=== PATIENT | female | born 1965 | race Caucasian/White ===

== ENCOUNTER 2022-07-16 21:11 | Emergency (ER) | payer BC, SELFPAY ==
[2022-07-16 21:24] VITALS: BP 176/117; PULSE 76; RESP 16; TEMP 36; O2SAT 98; BMI 41.6
--- NOTE | 2022-07-16 21:38 | CRLHL7_ITS ---
For Patients: As a result of the Century Cures Act, medical imaging exams and procedure reports are released immediately into your electronic medical record. You may view this report before your referring provider. If you have questions, please contact your health care provider. HISTORY: Fall. Right ankle injury. COMPARISON: None. FINDINGS: Three views of the right ankle. Acute nondisplaced fracture of the distal fibula diaphysis. The ankle mortise appears intact. Soft tissue swelling about the lateral lower leg. Dictated by Kristen Solano MD @ 07/16/2022 10:16:34 PM (Electronically Signed)
--- NOTE | 2022-07-16 21:41 | ED_ITS ---
HPI - Extremity Injury (Lower) General Chief Complaint: Fall/Minor Trauma Stated Complaint: Possibly broken ankle, fell down Time Seen by Provider: 07/16/22 21:31 History of Present Illness HPI Narrative: This patient comes in with an injury to her right ankle. She was riding a horse when another horse came up along side and caused injury to her right ankle. She does have a skin injury on the lateral aspect of the right leg just above the ankle. She has some generalized swelling and a bit of ecchymosis. She has been ambulating some on this but comes in with the assistance of crutches. She states that this injury happened about 4 hours prior to arrival. She does report some mild right-sided symptoms along her hip and right ribs. She does not have any shortness of breath. She did not hit her head. She states that she really did not fall. Her primary injury is involving the right ankle region. Related Data Home Medications Medication Instructions Recorded Confirmed anastrozole 1 mg tablet (Arimidex) 1 mg PO QDAY 06/30/22 06/30/22 Previous Rx's Medication Instructions Recorded lisinopril 10 1 tab PO QDAY #90 tabs 06/03/22 mg-hydrochlorothiazide 12.5 mg tablet rosuvastatin 10 mg tablet 10 mg PO QDAY #30 tabs 07/08/22 Allergies Allergy/AdvReac Type Severity Reaction Status Date / Time amoxicillin Allergy Intermediate swelling/hi Verified 06/30/22 15:07 ves codeine Allergy Intermediate Verified 06/30/22 15:07 ibuprofen Allergy Intermediate Verified 06/30/22 15:07 Review of Systems Status of ROS: Reports: 10 or more systems reviewed and unremarkable except as noted in History and below Narrative: Constitutional: No fevers, no weight gain or loss. Eyes: No discharge. No vision changes. HENT: No congestion, no sore throat, no ear pain. Cardiovascular: No chest pain, no palpitations. Respiratory: No shortness of breath, no wheezes, no cough. Gastrointestinal: No abdominal pain, no vomiting, no diarrhea. Genitourinary: No dysuria, no hematuria. Musculoskeletal: Right ankle injury as described above. Skin: No rashes, no pruritis. Neurological: No dizziness, weakness, sensory change, speech change. Endo/Heme/Allergies: No bruising or bleeding. No polydipsia. Pysch: no suicidality, no anxiety, no insomnia. All other systems reviewed and are negative. PFSH PFSH Social History Smoking Status: Former smoker What tobacco products do you use: cigarettes Smoking quit date/years: >15 years ago How often do you have a drink containing alcohol: 2-4 times a month AUDIT-C Alcohol total score: 2 Non-prescribed substance use: denies use service: No Exam Narrative: Exam Narrative: Constitutional: Well-developed, well-nourished, no acute distress. HEENT: Normocephalic, atraumatic. Neck: Normal range of motion. Nontender. Supple. Heart: Regular. No murmurs. Normal rate. Intact distal pulses. Lungs: Clear to auscultation. No chest discomfort. No wheezes, rhonchi, or rales. Abdomen: Normal bowel sounds. Nontender. No rebound tenderness. Genitalia: Deferred. Back: No midline tenderness. Normal range of motion. Extremities: Right ankle has diffuse swelling with mild ecchymosis. There is a skin avulsion in the area involving the lateral part of the right lower leg just above the ankle. Skin: Intact. No rash. Warm. No erythema or pallor. Neurologic: No altered sensation. No weakness. Alert and oriented. Psychiatric: No suicidality. No anxiety or depression. No insomnia. Nursing notes and vitals signs are reviewed. Const: Vital Signs, click to edit/add: Vital Signs - 24 hr 07/16/22 21:24 Temperature 96.8 F L Pulse Rate [Left P ulse Oximeter] 76 Respiratory Rate 16 Blood Pressure [Le ft Upper Arm] 176/117 H Pulse Oximetry 98 Oxygen Delivery Me thod Room Air Course Vital Signs Vital signs: Initial Vital Signs Temperature 96.8 F L 07/16/22 21:24 Temperature Source Temporal Artery Scan 07/16/22 21:24 Pulse Rate 76 07/16/22 21:24 Pulse Rhythm 07/16/22 21:24 Pulse Strength 3+ Normal 07/16/22 21:24 Respiratory Rate 16 07/16/22 21:24 Blood Pressure 176/117 H 07/16/22 21:24 Blood Pressure Mean 136 07/16/22 21:24 Blood Pressure Position Sitting 07/16/22 21:24 Pulse Oximetry 98 07/16/22 21:24 Oxygen Delivery Method 07/16/22 21:24 Vital Signs Temperature 96.8 F L 07/16/22 21:24 Pulse Rate 76 07/16/22 21:24 Respiratory Rate 16 07/16/22 21:24 Blood Pressure 176/117 H 07/16/22 21:24 Pulse Oximetry 98 07/16/22 21:24 Oxygen Delivery Method 07/16/22 21:24 Temperature 96.8 F L 07/16/22 21:24 Pulse Rate 76 07/16/22 21:24 Respiratory Rate 16 07/16/22 21:24 Blood Pressure 176/117 H 07/16/22 21:24 Pulse Oximetry 98 07/16/22 21:24 Oxygen Delivery Method 07/16/22 21:24 MDM - Extremity Injury (Lower) MDM Narrative Medical decision making narrative: This patient comes in with an injury to her right ankle. X-ray images by my review with radiology report pending shows evidence of a oblique minimally displaced fracture of the distal fibula. The tibia is intact and the ankle mortise appears normal. This patient came in with crutches and can continue to use those. She does also have a walking boot and attempted to put this on at home but it was too painful with swelling at the time. She received a posterior splint that I applied with Ortho Glass material. She does have a skin injury that is not actively bleeding but near the site of the fracture. She did receive a prescription for Keflex. I advised her to follow-up with orthopedic clinic this week. Imaging Data XR R Ankle: My impression: Oblique minimally displaced fracture of the distal fibula. Ankle mortise is intact. Discharge Plan Discharge Clinical Impression: Fibula fracture Patient Disposition: Home, Self-Care Condition: Stable Additional Instructions: Take medication as prescribed. Wear splint or walking boot to immobilize the right ankle. Use crutches as needed. Follow-up with orthopedic clinic for ongoing management. Prescriptions: No Action anastrozole [Arimidex] 1 mg tablet 1 mg PO QDAY lisinopril-hydrochlorothiazide 10-12.5 mg tablet 1 tab PO QDAY Qty: 90 1RF rosuvastatin 10 mg tablet 10 mg PO QDAY Qty: 30 0RF Follow Up/Referrals: Charlotte Salcido MD [Primary Care Provider] - Stand Alone Forms: [facility] Info Instructions
--- OUTSIDE RECORDS SUMMARY | 2022-07-16 22:02 | XMS_ITS | Encounter Summary ---
:1965 Author Organization [facility] Address [address] [place] [address] Care Team Providers Name Role Phone Unavailable Primary Care Provider Unavailable Reason for Visit Radiation Therapy (Routine) - Closed Specialty Diagnoses / Procedures Referred By Contact Refer red To Contact Diagnoses Malignant Neoplasm Of Breast Lower Inner Quadrant Female Right (HCC) Bryant Waddell M.D. [facility] Procedures Prior Auth Rad Tx [place] IMRT SIMPLE [address] [place] [address] Referral ID Status Reason Start Date Expiration Date Visits Requ ested Visits Authorized [id number] Closed 05/25/2021 05/25/2022 30 30 Encounter Details Date Type Department Care Team Description 08/03/2021 Hospital Encounter Department of Radiation Neal Waddell, Oncology in [place] [address] [facility] [address] [place] [id number] [phone] Social History Tobacco Use Types Packs/Day Years Used Date Smoking Tobacco: Never Assessed Alcohol Habits Answer Date Recorded How often do you have a drink containing alcohol? Monthly or less 05/24/2021 How many drinks containing alcohol do you have on a 1 or 2 05/24/2021 typical day when you are drinking? How often do you have six or more drinks on one Never 05/24/2021 occasion? Comment: Not asked Social Isolation Answer Date Recorded In a typical week, how many times do you More than three brian es a week 05/24/2021 talk on the phone with family, friends, or neighbors? How often do you get together with friends Once a week 05/24/2021 or relatives? How often do you attend pentecostalism or Patient refused 2020 confucianism services? Do you belong to any clubs or No 05/24/2021 organizations such as pentecostalism groups, unions, fraternal or athletic groups, or school groups? How often do you attend meetings of the Never 05/24/2021 clubs or organizations you belong to? Are you now , , , 05/24/2021 , never or living with a partner? Physical Activity Answer Date Recorded On average, how many days per week do you engage in moderate 0 days 05/24/2021 to strenuous exercise (like walking fast, running, jogging, dancing, swimming, biking, or other activities that cause a light or heavy sweat)? On average, how many minutes do you engage in exercise at No t asked this level? Stress Answer Date Recorded Do you feel stress - tense, restless, nervous, or Only a lit tle 05/24/2021 anxious, or unable to sleep at night because your mind is troubled all the time - these days? Food Insecurity Answer Date Recorded Within the past 12 months, you worried that your food would Never true 05/24/2021 run out before you got money to buy more. Within the past 12 months, the food you bought just didn't N ever true 05/24/2021 last and you didn't have money to get more. Transportation Needs Answer Date Recorded In the past 12 months, has lack of transportation kept you f rom No 05/24/2021 medical appointments or from getting medications? In the past 12 months, has lack of transportation kept you f rom No 05/24/2021 meetings, work, or getting things needed for daily living? Housing Stability Answer Date Recorded In the last 12 months, was there a time when you were not ab le No 05/24/2021 to pay the mortgage or rent on time? In the last 12 months, how many places have you lived? 1 05/24/2021 In the last 12 months, was there a time when you did not hav e a No 05/24/[address] or slept in a alf (including now)? Education Answer Date Recorded What is the highest level of school you have completed or 12 th grade 05/24/2021 the highest degree you have received? Sex Assigned at Date Recorded Female 07/26/2021 6:15 AM CDT documented as of this encounter Medications at Time of Discharge Medication Sig Dispensed Refills Start Date End Date ascorbic acid, vitamin C, Take 500 mg by mouth 0 (ascorbic acid with maria ines daily. hips) 500 mg tablet biotin 1 mg tablet Take by mouth daily. 0 calcium carbonate-vitamin Take 1 tablet by mouth 0 D3 (Calcium 500 + D) daily with breakfast. 1,250 mg (500 mg calcium)-5 mcg (200 Unit) per tablet gabapentin (NEURONTIN) Take 100 mg by mouth 0 02/2021 100 mg capsule daily. lisinopril-hydroCHLOROthi Take 1 tablet by mouth 0 04/03/2021 azide daily. (PRINZIDE,ZESTORETIC) 10-12.5 mg per tablet multivitamin tablet Take 1 tablet by mouth 0 10/16 daily. omega 8-mnm-qnc-fish oil Take by mouth. 0 1,000 mg (120 mg-180 mg) capsule UNABLE TO FIND Evening primrose 650 0 mg UNABLE TO FIND Flaxseed oil 1400 mg 0 UNABLE TO FIND Echinacea 800 mg 0 anastrozole (ARIMIDEX) 1 Take 1 mg by mouth 0 mg tablet daily. documented as of this encounter Plan of Treatment Not on filedocumented as of this encounter Visit Diagnoses Not on filedocumented in this encounter
--- OUTSIDE RECORDS SUMMARY | 2022-07-16 22:02 | XMS_ITS | Encounter Summary ---
:1965 Author Organization [facility] Address [address] [place] [address] Care Team Providers Name Role Phone Unavailable Primary Care Provider Unavailable Encounter Details Date Type Department Care Team Description 08/11/2021 Documentation Department of Radiation Bryant Waddell, Oncology in [place] [address] [facility] [address] [place] [phone] (Wo rk) Social History Tobacco Use Types Packs/Day Years [...] or relatives? How often do you attend restorationism or Patient refused 2020 evangelical services? Do you belong to any clubs or No 05/24/2021 organizations such as restorationism groups, unions, fraternal or athletic groups, or [...] place to sleep or slept in a long term (including now)? Education Answer Date Recorded What is the highest level of school you have completed or 12 th grade 05/24/2021 the highest degree you have received? Sex Assigned at Date Recorded Female 07/26/2021 6:15 AM CDT documented as of this encounter Miscellaneous Notes Radiation Completion Notes - Viviana Baldwin R.N. - 08/11/2021 11:59 PM CDT DIAGNOSIS: 1. 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 She is currently undergoing adjuvant whole breast and lymph node radiotherapy followed by boost to lumpectomy cavity. Attending Physician: Bryant Waddell M.D. ([id number]) Treatment Intent: Curative Concomitant Therapy: None Single Plan Treatment Course: 1x R BREAST_LN Plan ID Fractions Dose / Fraction (cGy) Dose Treated (cGy) Dose Planned (cGy) First Treatment Last Treatment Elapsed Days [id number] 200 5000 5000 07/01/2021 08/04/2021 34 [id number] 200 1000 1000 08/05/2021 08/11/2021 6 Treatment Site Summary 6000 6000 07/01/2021 08/11/2021 41 Course Summary 07/01/2021 08/11/2021 41 Radiation Modality: Photons CLINICAL SUMMARY Mrs. Shahrzad Solitario completed radiation treatment as planned without interruptions. The course of treatment was tolerated well. The patient experienced toxicities of grade 2 dermatitis and hyperpigmentation during radiation treatment. TREATMENT RESPONSE: Response to treatment will be determined by post-treatment imaging and/or laboratory work. RECOMMENDED FOLLOW UP: She has a follow-up visit with Vee Nguyen CNP on September 23, 2021. No further follow-up in Radiation Oncology Clinic. Signed by: Viviana Baldwin R.N., 08/16/2021 2:55 PM CDT [facility] [address] [place] [address] documented in this encounter Plan of Treatment Not on filedocumented as of this encounter Visit Diagnoses Not on filedocumented in this encounter
--- OUTSIDE RECORDS SUMMARY | 2022-07-16 22:02 | XMS_ITS | Encounter Summary ---
:1965 Author Organization [facility] Address [address] [place] [address] Care Team Providers Name Role Phone Unavailable Primary Care Provider Unavailable Reason for Visit Radiation Therapy (Routine) - Closed Specialty Diagnoses / Procedures Referred By Contact Refer red To Contact Diagnoses Malignant Neoplasm Of Breast Lower Inner Quadrant Female Right (HCC) Bryant Waddell M.D. [facility] Procedures Prior Auth Rad Tx [place] IMRT SIMPLE [address] [place] [address] Referral ID Status Reason Start Date Expiration Date Visits Requ ested Visits Authorized [id number] Closed 05/25/2021 05/25/2022 30 30 Encounter Details Date Type Department Care Team Description 07/30/2021 Hospital Encounter Department of Radiation Neal Waddell, Oncology in [place] [address] [facility] [address] [place] [id number] [phone] Social History Tobacco Use Types Packs/Day Years [...] or relatives? How often do you attend sikh or Patient refused 2020 quaker services? Do you belong to any clubs or No 05/24/2021 organizations such as sikh groups, unions, fraternal or athletic groups, or [...] place to sleep or slept in a skilled nursing (including now)? Education Answer Date Recorded What [...] tablet by mouth 0 10/16 daily. omega 1-zef-pyl-fish oil Take by mouth. 0 1,000 mg [...]
--- OUTSIDE RECORDS SUMMARY | 2022-07-16 22:02 | XMS_ITS | Encounter Summary ---
:1965 Author Organization [facility] Address [address] [place] [address] Care Team Providers Name Role Phone Unavailable Primary Care Provider Unavailable Reason for Referral Radiation Therapy (Routine) - Closed Specialty Diagnoses / Procedures Referred By Contact Refer red To Contact Diagnoses Malignant Neoplasm Of Breast Lower Inner Quadrant Female Right (HCC) Bryant Waddell M.D. [facility] Procedures Management Visit [address] [place] [address] Referral ID Status Reason Start Date Expiration Date Visits Requ ested Visits Authorized [id number] Closed 05/25/2021 05/25/2022 10 10 Reason for Visit Radiation Therapy (Routine) - Closed Specialty Diagnoses / Procedures Referred By Contact Refer red To Contact Diagnoses Malignant Neoplasm Of Breast Lower Inner Quadrant Female Right (HCC) Bryant Waddell M.D. [facility] Procedures Management Visit [address] [place] [address] Referral ID Status Reason Start Date Expiration Date Visits Requ ested Visits Authorized [id number] Closed 05/25/2021 05/25/2022 10 10 Encounter Details Date Type Department Care Team Description 08/10/2021 - Hospital Encounter Department of Lisbeth Waddell t Neoplasm 08/17/2021 Radiation Oncology Bryant Kemp M.D. Of Breast Lower in [place], [address] [place], [place] Female Right (HCC) [address] [facility] [address] [place], [place] [phone] (Work) [phone] Social History Tobacco Use Types Packs/Day Years [...] or relatives? How often do you attend taoist or Patient refused 2020 anabaptism services? Do you belong to any clubs or No 05/24/2021 organizations such as taoist groups, unions, fraternal or athletic groups, or [...] AM CDT documented as of this encounter Last Filed Vital Signs Vital Sign Reading Time Taken Comments Blood Pressure - - Pulse - - Temperature 36.7 ??C (98 ??F) 08/10/2021 3:56 PM CDT Respiratory Rate - - Oxygen Saturation - - Inhaled Oxygen Concentration - - Weight 113 kg (249 lb 5.4 oz) 08/10/2021 3:56 PM CDT Height - - Body Mass Index 41.54 05/26/2021 2:25 PM CDT documented in this encounter Medications at Time of Discharge [...] tablet by mouth 0 10/16 daily. omega 8-yzs-ssy-fish oil Take by mouth. 0 1,000 mg (120 mg-180 mg) capsule UNABLE TO FIND Evening primrose 650 0 mg UNABLE TO FIND Flaxseed oil 1400 mg 0 UNABLE TO FIND Echinacea 800 mg 0 anastrozole (ARIMIDEX) 1 Take 1 mg by mouth 0 mg tablet daily. documented as of this encounter Progress Notes Bryant Waddell M.D. - 08/10/2021 4:15 PM CDT SUBJECTIVE SUPERVISED BY: Dr. Waddell REASON FOR VISIT Evaluation for side effects while receiving radiation treatment for 1. Malignant Neoplasm Of Breast Lower Inner Quadrant Female Right (HCC) HISTORY OF PRESENT ILLNESS Mrs. Shahrzad Solitario is a 55 y.o. female with stage IIB (cT2, cN1, cM0, G3, ER+, IL+, HER2-)invasive ductal carcinoma of the right breast. She is currently undergoing adjuvant whole breast andlymph node radiotherapy followed by boost to lumpectomy cavity. Treatment Course: 1x R BREAST_LN Plan ID Fractions Dose / Fraction (cGy) Dose Treated (cGy) Dose Planned (cGy) First Treatment Last Treatment Elapsed Days [id number] 200 5000 5000 07/01/2021 08/04/2021 34 [id number] 471 [id number] [id number] 08/05/2021 08/10/2021 5 Treatment Site Summary [id number] 6000 07/01/2021 08/10/2021 40 Course Summary 07/01/2021 08/10/2021 40 Her oncologic history is as follows: 1. September 2020: The patient noted a mass in her right breast. 2. October 19, 2020: Bilateral diagnostic mammogram demonstrated a mass within the lower inner quadrant of the right breast corresponding to the area of concern. Right axillary adenopathy was also present. Mildly prominent left axillary lymph node. Normal left breast parenchyma. Targeted right breast ul trasound and right axilla as well as targeted left axillary ultrasound was performed. In the area ofpalpable concern corresponding to the mammographic abnormality at the 5 o'clock position, 6 cm from the nipple, there was a spiculated hypoechoic mass measuring 1.9 x 1.6 x 2.2 cm with mild internal vas cularity. Mildly prominent right axillary lymph node was also present with slight cortical thickening measuring 1.5 cm. Probably normal left axillary lymph node was present. BI-RADS 5. 3. October 19, 2020: Ultrasound of the abdomen demonstrated diffuse hepatic steatosis. No intrahepatic mass by ultrasound. Gallbladder was normal. Common bile duct was somewhat prominent measuring 8 mm. 4. October 29, 2020: Ultrasound-guided core biopsy of the right breast at the 5 o'clock position, 6 cm from the nipple was performed. Pathology demonstrated invasive ductal carcinoma with associated necrosis, Rhinanon grade 3. Angiolymphatic invasion was not identified. Associated DCIS was absent. Estrogen receptor positive (90%). Progesterone receptor positive (45%). HER2 by IHC negative (0). Ultrasound-guided core biopsy of the enlarged right axillary lymph node was performed. Pathology demonstrated metastatic carcinoma to a lymph node measuring at least 0.7 cm, negative for extracapsular extension in this biopsy. 5. November 04, 2020: MRI of the bilateral breasts demonstrated in the slightly medial right breast, posterior depth, at approximately the 3 o'clock position, approximately 10 cm from the nipple there was an irregular mass with irregular margins and heterogeneous internal enhancement measuring 2.2 x 2.5 x 1.9 cm. This is consistent with the biopsy-proven malignancy. There were no suspicious areas of enhancement in the left breast. There was an enlarged low lying right axillary lymph node measuring 1.7 x 1.0 cm. This is consistent with the biopsy- proven masoud metastasis. No suspicious left axillary lymph nodes. BI-RADS 6. 6. November 09, 2020: Appointment with Dr. Adriana Anderson for physical examination demonstrated an approximately 3 cm mass which was somewhat fixed just superior to the inframammary fold in the right breast in the lower inner quadrant. No masses in the left breast. No nipple inversion in either breast. No axillary adenopathy. Dr. Anderson discussed options of down staging her axilla with neoadjuvant chemotherapy versus proceeding straight to surgery. Referral to Medical Oncology. 7. November 19, 2020: Appointment with Vee Nguyen CNP who discussed the recommendation to proceed with neoadjuvant chemotherapy with Adriamycin/Cytoxan for 4 cycles followed by weekly paclitaxel for 12 weeks. 8. November 26, 2020: Left IJ port placement was performed by Dr. Adriana Anderson. 9. November 26, 2020 through January 07, 2021: The patient received 4 cycles of cyclophosphamide and doxorubicin chemotherapy. 10. January 20, 2021: Ultrasound of the right breast demonstrated that the breast cancer currently measured 1.3 x 1 x 1.2 cm, decreased in size. Additionally, the previously enlarged right axillary lymph node currently measured 1 x 0.7 x 1.5 cm. The cortex remained thickened; however, the size of the lymph node was decreased. 11. January 22, 2021 through April 08, 2021: The patient received 12 cycles of weekly Taxol chemotherapy. 12. April 13, 2021: MRI of the bilateral breasts demonstrated in the slightly medial right breast at approximately the 3 o'clock position, 10 cm posterior to the nipple, there was a 0.7 x 2 x 0.8 cm irregular mass. This was decreased in size compared to the previous MRI. No suspicious mass or enhancement within the left breast. The previously biopsied malignant low right axillary lymph node was now normal in size and morphology. No abnormal morphology left axillary lymph nodes. 13. April 29, 2021: Right breast lumpectomy, right axillary sentinel lymph node biopsy, right axillary dissection, and left IJ port removal was performed by Dr. Duval. Pathology of the right breast demonstrated residual invasive ductal carcinoma, Rhiannon grade 2, measuring 13 x 12 mm. There were tumor bed changes present measuring approximately 18 x 18 x 13 mm. Residual ductal carcinoma in situ, nuclear grade 3, cribriform and flat/clinging types. Invasive carcinoma and DCIS were both located 5 mmfrom the anterior margin. One of three right sentinel lymph nodes demonstrated micro metastatic carcinoma measuring 2 mm, no extranodal extension identified (1/3). Right axillary lymph node dissection was performed and was negative for metastatic malignancy in nine lymph nodes (0/9). Estrogen receptorpositive (90%). Progesterone receptor positive (45%). HER2 by IHC negative (0). ypT1c pN1mi 14. May 20, 2021: Appointment with Vee Dodd???CAROLYN Parson who discussed endocrine therapy in the adjuvant setting using an aromatase inhibitor. The patient will need a baseline bone mineral density scan. She also discussed treatment with zoledronic acid every 6 months. The patient will need dental evaluation and clearance prior to initiation of therapy. 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 Follow-up at the end of radiation. 15. July 01, 2021 anticipated through August 11, 2021: Patient treated with intensity modulated radiotherapy to the right breast and regional lymph nodes to a dose of 5000 cGy in 25 fractions brittany boost to the right breast cavity Patient seen and evaluated today with Dr. Waddell. The patient reports she is doing well overall. She is applying Eucerin to the treatment field area. PATIENT REPORTED SYMPTOM SCREEN FATIGUE (Scale: 0 = no fatigue; 10 = worst fatigue you can imagine): 2 PAIN (Scale: 0 = no pain; 10 = worst pain you can imagine): 0 OVERALL QUALITY OF LIFE (Scale: 0 = as bad as can be; 10 = as good as can be): 10 OBJECTIVE There were no vitals taken for this visit. PHYSICAL EXAM General: Alert and oriented in no apparent distress. She was interviewed and examined at the treatment machine with the can sterilizer of the therapist, EVERETTE June. Breasts: Folliculitis noted to the right breast and right inframammary fold. Mild to moderate erythema present to breast. Mild darkening of the skin to the right axilla. ASSESSMENT / PLAN #1 Stage IIB (cT2, cN1, cM0, G3, ER+, IL+, HER2-) invasive ductal carcinoma of the right breast #2 Neoadjuvant chemotherapy with??Adriamycin/Cytoxan for 4 cycles followed by weekly paclitaxel for 12 weeks??completed April 08, 2021 #3??Right breast lumpectomy, right axillary sentinel lymph node biopsy,??and??right axillary dissection on April 29, 2021 with final pathologic staging ypT1c, pN1mi, cM0, G2, ER+, IL+, HER2- #4 Right whole breast and regional lymph node radiotherapy followed by boost to the lumpectomy cavity initiated on July 01, 2021; anticipated completion on August 11, 2021 The patient is tolerating radiation treatment well. Radiation related skin changes will start to heal in the coming weeks. We discussed adding Aquaphor to her skin care regimen. Moist Skin Reaction pamphlet and supplies were provided to patient today. I also reviewed Self Breast Examination pamphlet with patient today as well. Patient will follow up with Vee Nguyen CNP on September 23, 2021. She will continue with radiation treatment as planned. Radiation Oncology [place] can be contacted at anytime for any questions or concerns. Patient stated a full understanding to the plan of care discussedtoday. Toxicities reviewed with Dr. Waddell. Signed by: Shanika Hsu RN 08/10/21 3:55 PM CDT I saw and evaluated the patient and participated in the bernardo portions of the service. I reviewed the documentation of Shanika Hsu R.N. and agree with the findings and plan. The patient appears well onexam. She has tolerated treatment well with anticipated side effects of grade 2 radiation dermatitisand grade 1 skin hyperpigmentation. She will utilize dressing changes until her skin heals. She has a follow-up visit with Vee Nguyen CNP on September 23, 2021. We will not schedule any further formalfollow-up in Radiation Oncology Clinic, but the patient knows she can contact us at any time with questions or concerns. Signed by: Bryant Waddell M.D. 08/17/2021 7:08 PM CDT [facility] [address] [place] [address] documented in this encounter Miscellaneous Notes Addendum Note - Kat Irby, C.N.A. - 08/10/2021 4:15 PM CDT Encounter addended by: Kat Irby C.N.A. on: 08/18/2021 7:02 AM Actions taken: SmartForm saved, Letter saved documented in this encounter Plan of Treatment Scheduled Orders Name Type Priority Associated Diagnoses Order S chedule Management Visit Radiation Oncology Routine Malignant Neoplasm Once for 1 Of Breast Lower Occurrences starting Inner Quadrant 08/10/2021 un til Female Right (HCC) documented as of this encounter Visit Diagnoses Diagnosis Malignant Neoplasm Of Breast Lower Inner Quadrant Female Right (HCC) documented in this encounter
--- OUTSIDE RECORDS SUMMARY | 2022-07-16 22:02 | XMS_ITS | Encounter Summary ---
:1965 Author Organization [facility] Address [address] [place] [address] Care Team Providers Name Role Phone Unavailable Primary Care Provider Unavailable Reason for Visit Radiation Therapy (Routine) - Closed Specialty Diagnoses / Procedures Referred By Contact Refer red To Contact Diagnoses Malignant Neoplasm Of Breast Lower Inner Quadrant Female Right (HCC) Bryant Waddell M.D. [facility] Procedures Prior Auth Rad Tx [place] IMRT SIMPLE [address] [place] [address] Referral ID Status Reason Start Date Expiration Date Visits Requ ested Visits Authorized [id number] Closed 05/25/2021 05/25/2022 30 30 Encounter Details Date Type Department Care Team Description 08/04/2021 Hospital Encounter Department of Radiation Neal Waddell, Oncology in [place] [address] [facility] [address] [place] [phone] Social History Tobacco Use Types Packs/Day Years [...] or relatives? How often do you attend zoroastrian or Patient refused 2020 baptism services? Do you belong to any clubs or No 05/24/2021 organizations such as zoroastrian groups, unions, fraternal or athletic groups, or [...] tablet by mouth 0 10/16 daily. omega 4-qna-vdi-fish oil Take by mouth. 0 1,000 mg [...]
--- OUTSIDE RECORDS SUMMARY | 2022-07-16 22:02 | XMS_ITS | Encounter Summary ---
:1965 Author Organization [facility] Address [address] [place] [address] Care Team Providers Name Role Phone Unavailable Primary Care Provider Unavailable Reason for Visit Radiation Therapy (Routine) - Closed Specialty Diagnoses / Procedures Referred By Contact Refer red To Contact Diagnoses Malignant Neoplasm Of Breast Lower Inner Quadrant Female Right (HCC) Bryant Waddell M.D. [facility] Procedures Prior Auth Rad Tx [place] IMRT SIMPLE [address] [place] [address] Referral ID Status Reason Start Date Expiration Date Visits Requ ested Visits Authorized [id number] Closed 05/25/2021 05/25/2022 30 30 Encounter Details Date Type Department Care Team Description 07/27/2021 Hospital Encounter Department of Radiation Neal Waddell, Oncology in [place] [address] [facility] [address] [place] [phone] Social History Tobacco Use Types Packs/Day Years [...] or relatives? How often do you attend mosque or Patient refused 2020 pentecostalism services? Do you belong to any clubs or No 05/24/2021 organizations such as mosque groups, unions, fraternal or athletic groups, or [...] place to sleep or slept in a chcf (including now)? Education Answer Date Recorded What [...] tablet by mouth 0 10/16 daily. omega 7-xht-oom-fish oil Take by mouth. 0 1,000 mg [...]
--- OUTSIDE RECORDS SUMMARY | 2022-07-16 22:02 | XMS_ITS | Encounter Summary ---
:1965 Author Organization [facility] Address [address] [place] [address] Care Team Providers Name Role Phone Unavailable Primary Care Provider Unavailable Reason for Visit Radiation Therapy (Routine) - Closed Specialty Diagnoses / Procedures Referred By Contact Refer red To Contact Diagnoses Malignant Neoplasm Of Breast Lower Inner Quadrant Female Right (HCC) Bryant Waddell M.D. [facility] Procedures Prior Auth Rad Tx CT IMRT SIMPLE [address] [place] [address] Referral ID Status Reason Start Date Expiration Date Visits Requ ested Visits Authorized [id number] Closed 05/25/2021 05/25/2022 30 30 Encounter Details Date Type Department Care Team Description 08/05/2021 Hospital Encounter Department of Radiation Neal Waddell, Oncology in [place] [address] [facility] [address] [place] [phone] Social History Tobacco Use Types Packs/Day Years [...] or relatives? How often do you attend mormonism or Patient refused 2020 bahai services? Do you belong to any clubs or No 05/24/2021 organizations such as mormonism groups, unions, fraternal or athletic groups, or [...] place to sleep or slept in a nursing home (including now)? Education Answer Date Recorded What [...] tablet by mouth 0 10/16 daily. omega 7-szz-pgd-fish oil Take by mouth. 0 1,000 mg [...]
--- OUTSIDE RECORDS SUMMARY | 2022-07-16 22:02 | XMS_ITS | Encounter Summary ---
:1965 Author Organization [facility] Address [address] [place] [address] Care Team Providers Name Role Phone Unavailable Primary Care Provider Unavailable Reason for Visit Radiation Therapy (Routine) - Closed Specialty Diagnoses / Procedures Referred By Contact Refer red To Contact Diagnoses Malignant Neoplasm Of Breast Lower Inner Quadrant Female Right (HCC) Bryant Waddell M.D. [facility] Procedures Prior Auth Rad Tx [place] IMRT SIMPLE [address] [place] [address] Referral ID Status Reason Start Date Expiration Date Visits Requ ested Visits Authorized [id number] Closed 05/25/2021 05/25/2022 30 30 Encounter Details Date Type Department Care Team Description 07/28/2021 Hospital Encounter Department of Radiation Neal Waddell, Oncology in [place] [address] [facility] [address] [place] [phone] Social History Tobacco Use Types Packs/Day Years [...] or relatives? How often do you attend sabianist or Patient refused 2020 christian services? Do you belong to any clubs or No 05/24/2021 organizations such as sabianist groups, unions, fraternal or athletic groups, or [...] tablet by mouth 0 10/16 daily. omega 4-iyf-wyq-fish oil Take by mouth. 0 1,000 mg [...]
--- OUTSIDE RECORDS SUMMARY | 2022-07-16 22:02 | XMS_ITS | Encounter Summary ---
:1965 Author Organization [facility] Address [address] [place] [address] Care Team Providers Name Role Phone Unavailable Primary Care Provider Unavailable Reason for Visit Radiation Therapy (Routine) - Closed Specialty Diagnoses / Procedures Referred By Contact Refer red To Contact Diagnoses Malignant Neoplasm Of Breast Lower Inner Quadrant Female Right (HCC) Bryant Waddell M.D. [facility] Procedures Prior Auth Rad Tx [place] IMRT SIMPLE [address] [place] [address] Referral ID Status Reason Start Date Expiration Date Visits Requ ested Visits Authorized [id number] Closed 05/25/2021 05/25/2022 30 30 Encounter Details Date Type Department Care Team Description 08/09/2021 Hospital Encounter Department of Radiation Neal Waddell, Oncology in [place] [address] [facility] [address] [place] [phone] Social History Tobacco Use Types Packs/Day Years [...] or relatives? How often do you attend adventism or Patient refused 2020 gnosticism services? Do you belong to any clubs or No 05/24/2021 organizations such as adventism groups, unions, fraternal or athletic groups, or [...] place to sleep or slept in a residential (including now)? Education Answer Date Recorded What [...] tablet by mouth 0 10/16 daily. omega 4-qfs-zzp-fish oil Take by mouth. 0 1,000 mg [...]
--- OUTSIDE RECORDS SUMMARY | 2022-07-16 22:02 | XMS_ITS | Encounter Summary ---
:1965 Author Organization [facility] Address [address] [place] [address] Care Team Providers Name Role Phone Unavailable Primary Care Provider Unavailable Reason for Visit Radiation Therapy (Routine) - Closed Specialty Diagnoses / Procedures Referred By Contact Refer red To Contact Diagnoses Malignant Neoplasm Of Breast Lower Inner Quadrant Female Right (HCC) Bryant Waddell M.D. [facility] Procedures Prior Auth Rad Tx [place] IMRT SIMPLE [address] [place] [address] Referral ID Status Reason Start Date Expiration Date Visits Requ ested Visits Authorized [id number] Closed 05/25/2021 05/25/2022 30 30 Encounter Details Date Type Department Care Team Description 08/11/2021 Hospital Encounter Department of Radiation Neal Waddell, Oncology in [place] [address] [facility] [address] [place] [phone] Social History Tobacco Use Types Packs/Day Years [...] or relatives? How often do you attend moravian or Patient refused 2020 baptist services? Do you belong to any clubs or No 05/24/2021 organizations such as moravian groups, unions, fraternal or athletic groups, or [...] place to sleep or slept in a jail (including now)? Education Answer Date Recorded What [...] tablet by mouth 0 10/16 daily. omega 4-ixq-pjs-fish oil Take by mouth. 0 1,000 mg [...]
--- OUTSIDE RECORDS SUMMARY | 2022-07-16 22:02 | XMS_ITS | Encounter Summary ---
:1965 Author Organization [facility] Address [address] [place] [address] Care Team Providers Name Role Phone Unavailable Primary Care Provider Unavailable Reason for Visit Radiation Therapy (Routine) - Closed Specialty Diagnoses / Procedures Referred By Contact Refer red To Contact Diagnoses Malignant Neoplasm Of Breast Lower Inner Quadrant Female Right (HCC) Bryant Waddell M.D. [facility] Procedures Prior Auth Rad Tx [place] IMRT SIMPLE [address] [place] [address] Referral ID Status Reason Start Date Expiration Date Visits Requ ested Visits Authorized [id number] Closed 05/25/2021 05/25/2022 30 30 Encounter Details Date Type Department Care Team Description 07/26/2021 Hospital Encounter Department of Radiation Neal Waddell, Oncology in [place] [address] [facility] [address] [place] [phone] Social History Tobacco Use Types Packs/Day Years [...] or relatives? How often do you attend evangelical or Patient refused 2020 taoist services? Do you belong to any clubs or No 05/24/2021 organizations such as evangelical groups, unions, fraternal or athletic groups, or [...] tablet by mouth 0 10/16 daily. omega 8-zww-jxw-fish oil Take by mouth. 0 1,000 mg [...]
--- OUTSIDE RECORDS SUMMARY | 2022-07-16 22:02 | XMS_ITS | Encounter Summary ---
:1965 Author Organization [facility] Address [address] [place] [address] Care Team Providers Name Role Phone Unavailable Primary Care Provider Unavailable Reason for Visit Radiation Therapy (Routine) - Closed Specialty Diagnoses / Procedures Referred By Contact Refer red To Contact Diagnoses Malignant Neoplasm Of Breast Lower Inner Quadrant Female Right (HCC) Bryant Waddell M.D. [facility] Procedures Prior Auth Rad Tx [place] IMRT SIMPLE [address] [place] [address] Referral ID Status Reason Start Date Expiration Date Visits Requ ested Visits Authorized [id number] Closed 05/25/2021 05/25/2022 30 30 Encounter Details Date Type Department Care Team Description 08/10/2021 Hospital Encounter Department of Radiation Neal Waddell, Oncology in [place] [address] [facility] [address] [place] [phone] Social History Tobacco Use Types Packs/Day Years [...] or relatives? How often do you attend yarsani or Patient refused 2020 mu-ism services? Do you belong to any clubs or No 05/24/2021 organizations such as yarsani groups, unions, fraternal or athletic groups, or [...] place to sleep or slept in a assisted (including now)? Education Answer Date Recorded What [...] tablet by mouth 0 10/16 daily. omega 5-oqm-enf-fish oil Take by mouth. 0 1,000 mg [...]
--- OUTSIDE RECORDS SUMMARY | 2022-07-16 22:02 | XMS_ITS | Encounter Summary ---
:1965 Author Organization [facility] Address [address] [place] [address] Care Team Providers Name Role Phone Unavailable Primary Care Provider Unavailable Reason for Visit Radiation Therapy (Routine) - Closed Specialty Diagnoses / Procedures Referred By Contact Refer red To Contact Diagnoses Malignant Neoplasm Of Breast Lower Inner Quadrant Female Right (HCC) Bryant Waddell M.D. [facility] Procedures Prior Auth Rad Tx NE IMRT SIMPLE [address] [place] [address] Referral ID Status Reason Start Date Expiration Date Visits Requ ested Visits Authorized [id number] Closed 05/25/2021 05/25/2022 30 30 Encounter Details Date Type Department Care Team Description 08/02/2021 Hospital Encounter Department of Radiation Neal Waddell, Oncology in [place] [address] [facility] [address] [place] [phone] Social History Tobacco Use Types Packs/Day Years [...] or relatives? How often do you attend yazdanism or Patient refused 2020 restorationism services? Do you belong to any clubs or No 05/24/2021 organizations such as yazdanism groups, unions, fraternal or athletic groups, or [...] tablet by mouth 0 10/16 daily. omega 5-sbh-css-fish oil Take by mouth. 0 1,000 mg [...]
--- OUTSIDE RECORDS SUMMARY | 2022-07-16 22:02 | XMS_ITS | Encounter Summary ---
:1965 Author Organization [facility] [place] [facility] Address [address] [place] [address] Care Team Providers Name Role Phone Unavailable Primary Care Provider Unavailable Reason for Visit Radiation Therapy (Routine) - Closed Specialty Diagnoses / Procedures Referred By Contact Refer red To Contact Diagnoses Malignant Neoplasm Of Breast Lower Inner Quadrant Female Right (HCC) Bryant Waddell M.D. [facility] Procedures Prior Auth Rad Tx [place] IMRT SIMPLE [address] [place] [address] Referral ID Status Reason Start Date Expiration Date Visits Requ ested Visits Authorized [id number] Closed 05/25/2021 05/25/2022 30 30 Encounter Details Date Type Department Care Team Description 07/23/2021 Hospital Encounter Department of Radiation Neal Waddell, Oncology in [place] [address] [facility] [address] [place] [phone] Social History Tobacco Use Types Packs/Day Years [...] or relatives? How often do you attend faith or Patient refused 2020 temple services? Do you belong to any clubs or No 05/24/2021 organizations such as faith groups, unions, fraternal or athletic groups, or [...] place to sleep or slept in a penitentiary (including now)? Education Answer Date Recorded What [...] tablet by mouth 0 10/16 daily. omega 8-mng-qoq-fish oil Take by mouth. 0 1,000 mg [...]
--- OUTSIDE RECORDS SUMMARY | 2022-07-16 22:02 | XMS_ITS | Encounter Summary ---
:1965 Author Organization [facility] Address [address] [place] [address] Care Team Providers Name Role Phone Unavailable Primary Care Provider Unavailable Reason for Visit Radiation Therapy (Routine) - Closed Specialty Diagnoses / Procedures Referred By Contact Refer red To Contact Diagnoses Malignant Neoplasm Of Breast Lower Inner Quadrant Female Right (HCC) Bryant Waddell M.D. [facility] Procedures Prior Auth Rad Tx [place] IMRT SIMPLE [address] [place] [address] Referral ID Status Reason Start Date Expiration Date Visits Requ ested Visits Authorized [id number] Closed 05/25/2021 05/25/2022 30 30 Encounter Details Date Type Department Care Team Description 07/29/2021 Hospital Encounter Department of Radiation Neal Waddell, Oncology in [place] [address] [facility] [address] [place] [phone] Social History Tobacco Use Types Packs/Day Years [...] or relatives? How often do you attend baptist or Patient refused 2020 moravian services? Do you belong to any clubs or No 05/24/2021 organizations such as baptist groups, unions, fraternal or athletic groups, or [...] place to sleep or slept in a long-term (including now)? Education Answer Date Recorded What [...] tablet by mouth 0 10/16 daily. omega 4-ogk-wse-fish oil Take by mouth. 0 1,000 mg [...]
--- OUTSIDE RECORDS SUMMARY | 2022-07-16 22:02 | XMS_ITS | Encounter Summary ---
:1965 Author Organization [facility] Address [address] [place] [address] Care Team Providers Name Role Phone Unavailable Primary Care Provider Unavailable Reason for Referral Radiation Therapy (Routine) - Closed Specialty Diagnoses / Procedures Referred By Contact Refer red To Contact Diagnoses Malignant Neoplasm Of Breast Lower Inner Quadrant Female Right (HCC) Bryant [facility]add[facility].D. [facility] Procedures Management Visit [address] [place] [address] Referral ID Status Reason Start Date Expiration Date Visits Requ ested Visits Authorized [id number] Closed 05/25/2021 05/25/2022 10 10 Reason for Visit Radiation Therapy (Routine) - Closed Specialty Diagnoses / Procedures Referred By Contact Refer red To Contact Diagnoses Malignant Neoplasm Of Breast Lower Inner Quadrant Female Right (HCC) Bryant Waddell M.D. [facility] Procedures Management Visit [address] [place] [address] Referral ID Status Reason Start Date Expiration Date Visits Requ ested Visits Authorized [id number] Closed 05/25/2021 05/25/2022 10 10 Encounter Details Date Type Department Care Team Description 08/03/2021 Hospital Encounter Department of Bryant Waddell Neoplasm Radiation Oncology [place] Of Breast Lower in [place], [address] [place], [place] Female Right (HCC) [address] [address] [place], [place] [phone] (Work) [phone] Social History Tobacco Use Types Packs/Day Years [...] you attend taoist or Patient refused 2020 hindu services? Do you belong to any clubs [...] place to sleep or slept in a halfway (including now)? Education Answer Date Recorded What is the highest level of school you have completed or 12 th grade 05/24/2021 the highest degree you have received? Sex Assigned at Date Recorded Female 07/26/2021 6:15 AM CDT documented as of this encounter Last Filed Vital Signs Vital Sign Reading Time Taken Comments Blood Pressure - - Pulse - - Temperature 36.3 ??C (97.3 ??F) 08/03/2021 3:43 PM CDT Respiratory Rate - - Oxygen Saturation - - Inhaled Oxygen Concentration - - Weight 113 kg (249 lb 12.5 oz) 08/03/2021 3:43 PM CDT Height - - Body Mass Index 41.62 05/26/2021 2:25 PM CDT documented in this [...] tablet by mouth 0 10/16 daily. omega 5-oac-xvr-fish oil Take by mouth. 0 1,000 mg (120 mg-180 mg) capsule UNABLE TO FIND Evening primrose 650 0 mg UNABLE TO FIND Flaxseed oil 1400 mg 0 UNABLE TO FIND Echinacea 800 mg 0 anastrozole (ARIMIDEX) 1 Take 1 mg by mouth 0 mg tablet daily. documented as of this encounter Progress Notes Bryant Waddell M.D. - 08/03/2021 3:21 PM CDT SUBJECTIVE SUPERVISED BY: Dr. Waddell REASON FOR VISIT Evaluation for side effects while receiving radiation treatment for 1. Malignant Neoplasm Of Breast Lower Inner Quadrant Female Right (HCC) HISTORY OF PRESENT ILLNESS Mrs. Shahrzad Solitario is a 55 y.o. female with stage IIB (cT2, cN1, cM0, G3, ER+, HI+, HER2-)invasive ductal carcinoma of the right breast. She is currently undergoing adjuvant whole breast andlymph node radiotherapy followed by boost to lumpectomy cavity. Treatment Course: 1x R BREAST_LN Plan ID Fractions Dose / Fraction (cGy) Dose Treated (cGy) Dose Planned (cGy) First Treatment Last Treatment Elapsed Days [id number] 200 4800 5000 07/01/2021 08/03/2021 33 Course Summary 07/01/2021 08/03/2021 33 Patient seen and evaluated today with Dr. [...] as good as can be): 10 OBJECTIVE Temp 36.3 ??C (Temporal) Wt 113 kg BMI 41.62 kg/m?? PHYSICAL EXAM General: Alert and oriented in no apparent distress. She was interviewed and examined at the treatment machine with the director data analytics of the therapist, EVERETTE June. Breasts: Folliculitis noted to the right breast and right inframammary fold. Mild to moderate erythema present to breast. Mild darkening of the skin to the right axilla. ASSESSMENT / PLAN #1 Stage IIB (cT2, cN1, cM0, G3, ER+, HI+, HER2-) invasive ductal carcinoma of the right breast #2 Neoadjuvant chemotherapy with??Adriamycin/Cytoxan for 4 cycles followed by weekly paclitaxel for 12 weeks??completed April 08, 2021 #3??Right breast lumpectomy, right axillary sentinel lymph node biopsy,??and??right axillary dissection on April 29, 2021 with final pathologic staging ypT1c, pN1mi, cM0, G2, ER+, HI+, HER2- #4 Right whole breast and regional lymph node radiotherapy followed by boost to the lumpectomy cavity initiated on July 01, 2021; anticipated completion on August 11, 2021 The patient is tolerating radiation treatment well. We discussed adding Aquaphor to her skin care regimen. She will continue with radiation treatment as planned. Signed by: Shanika Hsu RN 08/03/21 4:06 PM CDT I saw and evaluated the patient and participated in the bernardo portions of the service. I reviewed the documentation of Shanika Hsu R.N. and agree with the findings and plan. The patient appears well onexam. She will continue with treatment as planned. Signed by: Bryant Waddell M.D. 08/03/2021 5:58 PM CDT [facility] [address] [place] [address] documented in this encounter Plan of Treatment Scheduled Orders Name Type Priority Associated Diagnoses Order S chedule Management Visit Radiation Oncology Routine Malignant Neoplasm Once for 1 Of Breast Lower Occurrences starting Inner Quadrant 08/03/2021 un til Female Right (HCC) documented as of this encounter Visit Diagnoses Diagnosis Malignant Neoplasm Of Breast Lower Inner Quadrant Female Right (HCC) documented in this encounter
--- OUTSIDE RECORDS SUMMARY | 2022-07-16 22:02 | XMS_ITS | Encounter Summary ---
:1965 Author Organization [facility] Address [address] [place] [address] Care Team Providers Name Role Phone Unavailable Primary Care Provider Unavailable Reason for Visit Radiation Therapy (Routine) - Closed Specialty Diagnoses / Procedures Referred By Contact Refer red To Contact Diagnoses Malignant Neoplasm Of Breast Lower Inner Quadrant Female Right (HCC) Bryant Waddell M.D. [facility] Procedures Prior Auth Rad Tx [place] IMRT SIMPLE [address] [place] [address] Referral ID Status Reason Start Date Expiration Date Visits Requ ested Visits Authorized [id number] Closed 05/25/2021 05/25/2022 30 30 Encounter Details Date Type Department Care Team Description 08/06/2021 Hospital Encounter Department of Radiation Neal Waddell, Oncology in [place] [address] [facility] [address] [place] [phone] Social History Tobacco Use Types Packs/Day Years [...] or relatives? How often do you attend catholic or Patient refused 2020 anabaptist services? Do you belong to any clubs or No 05/24/2021 organizations such as catholic groups, unions, fraternal or athletic groups, or [...] place to sleep or slept in a fpc (including now)? Education Answer Date Recorded What [...] tablet by mouth 0 10/16 daily. omega 0-ymp-nlq-fish oil Take by mouth. 0 1,000 mg [...]
--- OUTSIDE RECORDS SUMMARY | 2022-07-16 22:02 | XMS_ITS | Encounter Summary ---
:1965 Author Organization [facility] Address [address] [place] [address] Care Team Providers Name Role Phone Unavailable Primary Care Provider Unavailable Reason for Referral Radiation Therapy (Routine) - Closed Specialty Diagnoses / Procedures Referred By Contact Refer red To Contact Diagnoses Malignant Neoplasm Of Breast Lower Inner Quadrant Female Right (HCC) Bryant Waddell M.D. [facility] Procedures Management Visit [address] [place] [address] Referral ID Status Reason Start Date Expiration Date Visits Requ ested Visits Authorized [id number] Closed 05/25/2021 05/25/2022 10 10 Reason for Visit Radiation Therapy (Routine) - Closed Specialty Diagnoses / Procedures Referred By Contact Refer red To Contact Diagnoses Malignant Neoplasm Of Breast Lower Inner Quadrant Female Right (HCC) Bryant Waddell M.D. [facility] Procedures Management Visit [address] [place] [address] Referral ID Status Reason Start Date Expiration Date Visits Requ ested Visits Authorized [id number] Closed 05/25/2021 05/25/2022 10 10 Encounter Details Date Type Department Care Team Description 07/27/2021 Hospital Encounter Department of Teresa Lawrence Neoplasm Radiation Oncology [place] Of Breast Lower in [place], [address] [place], [place] Female Right (HCC) [address] [facility] [address] [place], [place] [phone] (Work) [phone] Social History Tobacco Use Types Packs/Day Years [...] or relatives? How often do you attend oriental orthodox or Patient refused 2020 tenriism services? Do you belong to any clubs or No 05/24/2021 organizations such as oriental orthodox groups, unions, fraternal or athletic groups, or [...] place to sleep or slept in a mcc (including now)? Education Answer Date Recorded What [...] tablet by mouth 0 10/16 daily. omega 7-liw-grf-fish oil Take by mouth. 0 1,000 mg (120 mg-180 mg) capsule UNABLE TO FIND Evening primrose 650 0 mg UNABLE TO FIND Flaxseed oil 1400 mg 0 UNABLE TO FIND Echinacea 800 mg 0 anastrozole (ARIMIDEX) 1 Take 1 mg by mouth 0 mg tablet daily. documented as of this encounter Progress Notes Teresa Lawrence M.D. - 07/27/2021 3:45 PM CDT Diagnosis: Right sided breast cancer Radiation Treatment Progress Summary Treatment Course: 1x R BREAST_LN Plan ID Fractions Dose / Fraction (cGy) Dose Treated (cGy) Dose Planned (cGy) First Treatment Last Treatment Elapsed Days [id number] 200 3800 5000 07/01/2021 07/27/2021 26 F26 R Breast Boost 0/5 200 1000 Course Summary 07/01/2021 07/27/2021 26 SUBJECTIVE Mrs. Shahrzad Solitario a 55 y.o. reports that she feels well. She has no complaints. She thinks she has some allergies for about the last month that are unchanged. She denies fevers/chills, cough, shortness of breath. She is using lots of lotion on her skin. OBJECTIVE There were no vitals taken for this visit. PHYSICAL EXAM General: ??Alert and oriented in no apparent distress.?She was interviewed and examined at the treatment machine. Breasts: Minimal erythema in the treatment field. No desquamation. ?? ASSESSMENT / PLAN #1 Stage IIB (cT2, cN1, cM0, G3, ER+, OR+, HER2-) invasive ductal carcinoma of the right breast #2 Neoadjuvant chemotherapy with??Adriamycin/Cytoxan for 4 cycles followed by weekly paclitaxel for 12 weeks??completed April 08, 2021 #3??Right breast lumpectomy, right axillary sentinel lymph node biopsy,??and??right axillary dissection on April 29, 2021 with final pathologic staging ypT1c, pN1mi, cM0, G2, ER+, OR+, HER2- #4??Right whole breast and regional lymph node radiotherapy followed by boost to the lumpectomy cavity initiated on July 01, 2021; anticipated completion on August 11, 2021 The patient is tolerating radiotherapy well. We will continue as planned. Signed by: Teresa Lawrence M.D. 07/27/2021 4:21 PM CDT documented in this encounter Plan of Treatment Scheduled Orders Name Type Priority Associated Diagnoses Order S chedule Management Visit Radiation Oncology Routine Malignant Neoplasm Once for 1 Of Breast Lower Occurrences starting Inner Quadrant 07/27/2021 un til Female Right (HCC) documented as of this encounter Visit Diagnoses Diagnosis Malignant Neoplasm Of Breast Lower Inner Quadrant Female Right (HCC) documented in this encounter
--- OUTSIDE RECORDS SUMMARY | 2022-07-16 22:02 | XMS_ITS | Clinical Summary ---
:1965 Author Organization [facility] Address [address] [place] [address] Care Team Providers Name Role Phone Unavailable Primary Care Provider Unavailable Source Comments Patient records contain information from all sites at [facility]. For routine questions regarding patient records, call [phone] during business hours, M-F 8:00 AM - 5:00 PM Central Time. Record requests for emergency care only can be directed to [phone] at any time.[facility] Allergies Active Allergy Reactions Severity Noted Date Comments Codeine Hives, Edema High 05/26/2021 Ibuprofen Hives, Edema High 05/26/2021 Penicillins Hives, Edema High 05/26/2021 Medications Medication Sig Dispensed Refills Start Date End Date Status gabapentin (NEURONTIN) Take 100 mg by 0 05/20/2021 Active 100 mg capsule mouth daily. lisinopril-hydroCHLORO Take 1 tablet by 0 04/03/2021 Active thiazide mouth daily. (PRINZIDE,ZESTORETIC) 10-12.5 mg per tablet multivitamin tablet Take 1 tablet by 0 10/30/2008 Active mouth daily. omega 8-qpf-qns-fish Take by mouth. 0 Active oil 1,000 mg (120 mg-180 mg) capsule calcium Take 1 tablet by 0 Act dianne carbonate-vitamin D3 mouth daily with (Calcium 500 + D) breakfast. 1,250 mg (500 mg calcium)-5 mcg (200 Unit) per tablet biotin 1 mg tablet Take by mouth 0 Active daily. UNABLE TO FIND Evening primrose 0 Active 650 mg UNABLE TO FIND Flaxseed oil 1400 0 Active mg ascorbic acid, vitamin Take 500 mg by 0 Active C, (ascorbic acid with mouth daily. maria ines hips) 500 mg tablet UNABLE TO FIND Echinacea 800 mg 0 Active anastrozole (ARIMIDEX) Take 1 mg by mouth 0 06/14/20 21 Active 1 mg tablet daily. Active Problems Problem Noted Date Malignant Neoplasm Of Breast Lower Inner Quadrant Fema le Right 05/25/2021 Cancer Staging: Clinical stage from 10/29: Stage IIB (cT2, cN1, cM0, G3, ER+, IL+, HER2-) - Unsigned Pathologic stage from 04/29/2021: No Stag e Recommended (ypT1c, pN1mi, cM0, G2, ER+, IL+, HER2-) - Unsigned Immunizations Name Administration Dates Next Due Influenza (IM) Preservative Free 10/29/2008 Td (Adult), adsorbed 03/16/1995 Tdap 05/26/2008 Social History Tobacco Use Types Packs/Day Years [...] or relatives? How often do you attend voodoo or Patient refused 2020 orthodoxy services? Do you belong to any clubs or No 05/24/2021 organizations such as voodoo groups, unions, fraternal or athletic groups, or [...] place to sleep or slept in a detention (including now)? Education Answer Date Recorded What is the highest level of school you have completed or 12 th grade 05/24/2021 the highest degree you have received? Sex Assigned at Date Recorded Female 07/26/2021 6:15 AM CDT Last Filed Vital Signs Vital Sign Reading Time Taken Comments Blood Pressure 146/103 05/26/2021 2:25 PM CDT Pulse 105 05/26/2021 2:25 PM CDT Temperature 36.7 ??C (98 ??F) 08/10/2021 3:56 PM CDT Respiratory Rate - - Oxygen Saturation - - Inhaled Oxygen Concentration - - Weight 113 kg (249 lb 5.4 oz) 08/10/2021 3:56 PM CDT Height 165 cm (5' 4.96) 05/26/2021 2:25 PM CDT Body Mass Index 41.54 05/26/2021 2:25 PM CDT Plan of Treatment Health Maintenance Due Date Last Done Comments CT Colonography 1965 Cologuard 1965 Colonoscopy 1965 Colorectal Cancer Screening 1965 Creatinine Level 1967 FIT 1967 Fasting Glucose for Diabetes 1967 Screening HIV Screening 1965 Hepatitis B Vaccines (1 of 3 - 1965 3-dose series) Hepatitis C Screening 1967 Lipid (Cholesterol) Screening 1967 Potassium Level 1967 Sodium Level 1965 Pneumococcal vaccine (0-64 years) 1973 (1 - PCV) Cervical Cancer Screening 10/29/2011 10/29/2008 COVID-19 Vaccine (4 - Booster for 08/24/2021 06/29/2021, , Pfizer series) 01/05/2021 Depression Screening (Annual 10/16/2021 PHQ-2) Mammogram 04/29/2022 04/29/2021, 04/29/2021, 04/29/2021, Additional history exists Influenza Vaccine (#1) 2022 07/17/2021, 08/14/2020, 08/03/2020, Additional history exists DTaP,Tdap,and Td Vaccines (3 - Td 07/01/2026 07/01/2016, , or Tdap) 03/16/1995, Additional history exists Zoster Vaccines Completed 12/21/2020, 10/14/2020 Insurance Payer Benefit Plan / Subscriber ID Effective Phone Address T ype Group Dates [facility] [id number] 2018-Prese [phone] [address] [employer] [address] [place] [address]
--- OUTSIDE RECORDS SUMMARY | 2022-07-16 22:02 | XMS_ITS | Encounter Summary ---
:1965 Author Organization [facility] Address [address] [place] [address] Care Team Providers Name Role Phone Unavailable Primary Care Provider Unavailable Reason for Visit Radiation Therapy (Routine) - Closed Specialty Diagnoses / Procedures Referred By Contact Refer red To Contact Diagnoses Malignant Neoplasm Of Breast Lower Inner Quadrant Female Right (HCC) Bryant Waddell M.D. [facility] Procedures Prior Auth Rad Tx [place] IMRT SIMPLE [address] [place] [address] Referral ID Status Reason Start Date Expiration Date Visits Requ ested Visits Authorized [id number] Closed 05/25/2021 05/25/2022 30 30 Encounter Details Date Type Department Care Team Description 07/22/2021 Hospital Encounter Department of Radiation Neal Waddell, Oncology in [place] [address] [facility] [address] [place] [phone] Social History Tobacco Use Types Packs/Day Years [...] you attend evangelical or Patient refused 2020 yazidism services? Do you belong to any clubs [...] tablet by mouth 0 10/16 daily. omega 8-lrd-gia-fish oil Take by mouth. 0 1,000 mg [...]
--- OUTSIDE RECORDS SUMMARY | 2022-07-16 22:02 | XMS_ITS ---
:1965 Author Organization [facility] Address [address] [place] [address] Care Team Providers Name Role Phone Unavailable Primary Care Provider Unavailable Active Problems Problem Noted Date Malignant Neoplasm Of Breast Lower Inner Quadrant Fema le Right 05/25/2021 Cancer Staging: Clinical stage from 10/29: Stage IIB (cT2, cN1, cM0, G3, ER+, NC+, HER2-) - Unsigned Pathologic stage from 04/29/2021: No Stag e Recommended (ypT1c, pN1mi, cM0, G2, ER+, NC+, HER2-) - Unsigned Current Oncology Plans No current plan information found. Past Plans No past plan information found. Radiation Treatments Plan Last Treated Elapsed Days Fractions Prescribed Prescribed Total On Treated Fraction Dose Dose [id number] 08/11/2021 41 5 of 5 200 cGy 1,000 cGy [id number] 08/04/2021 34 25 of 25 200 cGy 5,000 cGy yb Reference Point Last Treated On Elapsed Days Session Dose Total Dos e [id number] 08/11/2021 41 200 cGy 6,000 cGy
--- OUTSIDE RECORDS SUMMARY | 2022-07-16 22:03 | XMS_ITS | Encounter Summary ---
:1965 Author Organization [facility] Address [address] [place] [address] Care Team Providers Name Role Phone Unavailable Primary Care Provider Unavailable Reason for Visit Reason Onset Date Comments Outpatient COVID-19 Testing 07/29/2020 Encounter Details Date Type Department Care Team Description 07/29/2020 External Outreach Department of Steven Parks Infect ion Upper Internal Medicine in J, D.O. Respiratory (Primary [place], [place] [address]) [address] [place] [phone] Social History Tobacco Use Types Packs/Day Years [...] or relatives? How often do you attend amish or Patient refused 2020 pentecostalism services? Do you belong to any clubs or No 05/24/2021 organizations such as amish groups, unions, fraternal or athletic groups, or [...] or slept in a assisted (including now)? Sex Assigned at Date Recorded Female 07/26/2021 6:15 AM CDT documented as of this encounter Progress Notes Susana Kuo R.N. - 07/29/2020 11:20 AM CDT Encounter created for the drive-through COVID-19 testing. documented in this encounter Plan of Treatment Not on filedocumented as of this encounter Procedures Procedure Name Priority Date/Time Associated Diagnosis Comme nts SARS CORONAVIRUS-2 Routine 07/29/2020 3:25 PM Infection Upper Results for this RNA, V CDT Respiratory procedure are i n the results section. documented in this encounter Results SARS Coronavirus-2 RNA, V Symptomatic (07/29/2020 3:25 PM CDT) [facility] Method Time Signature SARS-CoV-2 Swab, 07/30/2020 MKTO Specimen Nasopharynx 3:47 AM CDT Source SARS CoV-2 Undetected Undetected 07/30/2020 MKTO RNA, TMA 3:47 AM CDT Comment: SARS-CoV-2 RNA absent. This result does not rule out COVID-19 in the patient, as the sensitivity of the test depends o n the timing of the specimen collection and the quality of the specim en. Result should be correlated with patient's history and clinical presentat ion. ----ADDITIONAL INFORMATION---- This test is performed using the Aptima SARS-CoV-2 assay ([employer] which has received Emergency Use Authori zation (EUA) by the U.S. Food and Drug Administration. Fact sheets for this Emergency Use Autho rization (EUA) assay can be found at the following links: For Healthcare Providers: https://www.fd a.gov/media/199883/download For Patients: https://www.fda.gov/media/ 979193/download Specimen Anatomical Collection Method Collection Time Receive d Time (Source) Location / / Volume Laterality Varies 07/29/2020 3:25 PM 0 7:17 (Nasopharynx) CDT PM CDT Steven Parks D.O. LAB MICROBIOLOGY - GENERAL O RDERABLES Performing Organization Address City/State/ZIP Code Phon e Number [facility]- [address] [place] [address] [place] [address] documented in this encounter Visit Diagnoses Diagnosis Infection Upper Respiratory - Primary documented in this encounter Additional Health Concerns Infection Onset Date Last Indicated Resolved Time COVID19 Pending 07/29/2020 07/29/2020 07/30/2020 3:48 AM CDT documented as of this encounter
--- OUTSIDE RECORDS SUMMARY | 2022-07-16 22:03 | XMS_ITS | Encounter Summary ---
:[address] [facility] Address [address] [place] [address] Care Team Providers Name Role Phone Unavailable Primary Care Provider Unavailable Reason for Visit Reason Onset Date Comments Outpatient COVID-19 Testing 09/04/2020 Encounter Details Date Type Department Care Team Description 09/04/2020 External Outreach Department of Steven Parks Infect ion Upper Internal Medicine in J, D.O. Respiratory (Primary [place], [place] [address]) [address] [place] [phone] Social History Tobacco Use Types Packs/Day Years [...] or relatives? How often do you attend gnosticism or Patient refused 2020 alevism services? Do you belong to any clubs or No 05/24/2021 organizations such as gnosticism groups, unions, fraternal or athletic groups, or [...] place to sleep or slept in a correction (including now)? Sex Assigned at Date Recorded Female 07/26/2021 6:15 AM CDT documented as of this encounter Progress Notes Rose Marie Mcgowan R.N. - 09/04/2020 1:48 PM CST Encounter created for the drive-through COVID-19 testing. TILER documented in this encounter Miscellaneous Notes Result Encounter Note - Mohit Jaramillo M.D. - 09/05/2020 6:08 PM ROOF TILER PCR positive for SARS-CoV-2, the virus that causes COVID-19 infection. Based on chart review patientdoes not have high risk factors for complications. Will not be enrolled in CFCT. CFCT MAA, please send CFTeleusETTER and portal message (if patient has the portal). Please also alert the patient's [place] PCP (if applicable). You recently tested positive for SARS-CoV-2 by nasopharyngeal PCR, the gold standard test for diagnosing COVID-19 infection. This letter contains clinical and isolation recommendations for patients with COVID-19. If you have questions about the recommendations, please contact your local primary care physician or local health department. If you have a serious underlying medical condition (such as heart disease, lung disease or decreased functioning of your immune system) please respond to us so that we can assess your risk of COVID complications. If you have upcoming on-campus appointments, we recommend delaying non-urgent appointments until youhave recovered from your COVID infection. Our team will reach out to the area you are scheduled to be seen in. Please do not come to campus until given the ok to do so by a [place] inventory representative. Please continue to monitor your symptoms. If you develop any of the following symptoms, please call your primary care physician or go to the Emergency Department for evaluation Worsened shortness of breath New or worsening cough New productive cough or cough with blood New chest pain or pain with breathing Fevers, chills, sweats Vomiting or diarrhea Lightheadedness New temperature > 38.3 ??C Fast heart rate Fast breathing rate If you need to go into the Emergency Room or other healthcare facility, please: Inform EMS of positive COVID result and wear a mask prior to EMS arrival if available. If well enough to transport yourself to the emergency room, you should use a private vehicle (not use taxi, ride-share or public transport). We strongly recommend continuing self-isolation until the following criteria are met and you are released by your local public health department if applicable: Minimum of 10 days since onset of symptoms OR from positive PCR test if asymptomatic AND At least 3 days (72 hours) have passed since recovery defined as resolution of fever without the useof fever-reducing medications AND Improvement in symptoms (e.g., cough, shortness of breath, diarrhea) The above isolation recommendation may need to be adjusted based on the clinical course. Https://www.youtube.com/watch?time_continue=6&v=JtHG2mEiINw&feature=emb_logo Testing prior to release from isolation is NOT recommended by [facility] or [facility] Infection Prevention and Control for clinical purposes except in extremely rare cases. The patient was also advised to follow final recommendations as per local public health department/occupational health if relevant. Please contact your employer's occupational health division to notify them of positive test If the patient and/or their employer have questions about return to work best practices, they shouldcontact [facility] Occupational Medicine at [email or web address] The patient should receive approval from their employer's occupational health division before returning to work. Recommend self isolation for all household members/close contacts. If any of these individuals are immunocompromised or have serious chronic medical conditions, pleasehave them contact their primary care physician to let them know they have been exposed to close contact with COVID-19 If unwell, recommend contacting their health care provider. Presenting directly to of the ED can be considered in the case of severe symptoms. These individuals should call ahead to minimize wait times. The [facility] COVID Triage Line can bereached at [phone]. COVID-19 is a notifiable disease and you will be contacted by public health for contact tracing. Please review the links below for additional education. [facility] recommendations on isolation https://www.[facility].org/patient-education?VID=VID-02933215 Additional information about COVID-19 https://www.cdc.gov/coronavirus/2019-ncov/ Cognitive Behavior Therapy-Insomnia to help improve sleep https://[facility].edu/PatientEducation/PatientLearning/index.html#/ Building Resiliency During the COVID-19 Pandemic https://[facility] centercontent.[facility]/2020/PatientEducation/content/index.html#/ Consider donating convalescent plasma once you have recovered from your illness (14 days after symptoms have resolved) Survey to assess eligibility: https://redcap2.[facility]/redcap/surveys/?s=5IYP6MFQ5M and/ or contact wagner [email or web address] More information is available at https://www.uscovidplasma.org/ https://ccpp19.org/ https://covidplasma.org/ COVID-19 Frontline Care Team [facility] TILER documented in this encounter Plan of Treatment Not on filedocumented as of this encounter Procedures Procedure Name Priority Date/Time Associated Diagnosis Comme nts SARS CORONAVIRUS-2 Routine 09/04/2020 3:06 PM Infection Upper Results for this RNA, V ROOF TILER Respiratory procedure are i n the results section. documented in this encounter Results (ABNORMAL) SARS Coronavirus-2 RNA, V Symptomatic (09/04/2020 3:06 PM ROOF TILER) [facility] Method Time Signature SARS-CoV-2 Swab, 09/05/2020 MKTO Specimen Nasopharynx 6:02 PM ROOF TILER Source SARS CoV-2 Detected (C) Undetected 09/05/2020 MKTO RNA, TMA 6:02 PM ROOF TILER Comment: SARS-CoV-2 RNA present. ----ADDITIONAL INFORMATION---- This test is performed using the Aptima SARS-CoV-2 assay ([employer] which has received Emergency Use Authori zation (EUA) by the U.S. Food and Drug Administration. Fact sheets for this Emergency Use Autho rization (EUA) assay can be found at the following links: For Healthcare Providers: https://www.fd a.gov/media/904954/download For Patients: https://www.fda.gov/media/ 266128/download Specimen Anatomical Collection Method Collection Time Receive d Time (Source) Location / / Volume Laterality Varies 09/04/2020 3:06 PM 0 8:12 (Nasopharynx) ROOF TILER AM ROOF TILER Steven Parks D.O. LAB MICROBIOLOGY - GENERAL O RDERABLES Performing Organization Address City/State/ZIP Code Phon e Number [facility] [place] [address] [place] [address] System in [place] [address] [place] [address] documented in this encounter Visit Diagnoses Diagnosis Infection Upper Respiratory - Primary documented in this encounter Additional Health Concerns Infection Onset Date Last Indicated Resolved Time COVID19 Pending 09/04/2020 09/04/2020 09/04/2020 3:04 PM ROOF TILER documented as of this encounter
--- OUTSIDE RECORDS SUMMARY | 2022-07-16 22:03 | XMS_ITS | Encounter Summary ---
:1965 Author Organization [facility] Address [address] [place] [address] Care Team Providers Name Role Phone Unavailable Primary Care Provider Unavailable Reason for Visit Radiation Therapy (Routine) - Closed Specialty Diagnoses / Procedures Referred By Contact Refer red To Contact Diagnoses Malignant Neoplasm Of Breast Lower Inner Quadrant Female Right (HCC) Bryant Waddell M.D. [facility] Procedures Prior Auth Rad Tx [place] IMRT SIMPLE [address] [place], [place] [phone] Referral ID Status Reason Start Date Expiration Date Visits Requ ested Visits Authorized [id number] Closed 05/25/2021 05/25/2022 30 30 Encounter Details Date Type Department Care Team Description 07/08/2021 Hospital Encounter Department of Radiation Neal Waddell, Oncology in [place] [address] [facility] [address] [place] [phone] Social History Tobacco Use Types Packs/Day Years [...] you attend sikh or Patient refused 2020 jehovah's witness services? Do you belong to any clubs [...] tablet by mouth 0 10/16 daily. omega 6-grv-map-fish oil Take by mouth. 0 1,000 mg [...]
--- OUTSIDE RECORDS SUMMARY | 2022-07-16 22:03 | XMS_ITS | Encounter Summary ---
:1965 Author Organization [facility] Address [address] [place] [address] Care Team Providers Name Role Phone Unavailable Primary Care Provider Unavailable Reason for Referral Radiation Therapy (Routine) - Closed Specialty Diagnoses / Procedures Referred By Contact Refer red To Contact Diagnoses Malignant Neoplasm Of Breast Lower Inner Quadrant Female Right (HCC) Bryant Waddell M.D. [facility] Procedures Management Visit [address] [place] [address] Referral ID Status Reason Start Date Expiration Date Visits Requ ested Visits Authorized [id number] Closed 05/25/2021 05/25/2022 10 10 Reason for Visit Radiation Therapy (Routine) - Closed Specialty Diagnoses / Procedures Referred By Contact Refer red To Contact Diagnoses Malignant Neoplasm Of Breast Lower Inner Quadrant Female Right (HCC) Bryant Waddell M.D. [facility] Procedures Management Visit [address] [place] [address] Referral ID Status Reason Start Date Expiration Date Visits Requ ested Visits Authorized [id number] Closed 05/25/2021 05/25/2022 10 10 Encounter Details Date Type Department Care Team Description 07/07/2021 Hospital Encounter Department of Bryant Waddell Neoplasm Radiation Oncology Mac Kemp Of Breast Lower in [place], [address] [place], [place] Female Right (HCC) [address] [address] [place], [place] [phone] (Work) [phone] Social History Tobacco Use Types Packs/Day Years [...] or relatives? How often do you attend zoroastrianism or Patient refused 2020 uatsdin services? Do you belong to any clubs or No 05/24/2021 organizations such as zoroastrianism groups, unions, fraternal or athletic groups, or [...] tablet by mouth 0 10/16 daily. omega 0-lvu-she-fish oil Take by mouth. 0 1,000 mg (120 mg-180 mg) capsule UNABLE TO FIND Evening primrose 650 0 mg UNABLE TO FIND Flaxseed oil 1400 mg 0 UNABLE TO FIND Echinacea 800 mg 0 anastrozole (ARIMIDEX) 1 Take 1 mg by mouth 0 mg tablet daily. documented as of this encounter Progress Notes Bryant Waddell M.D. - 07/07/2021 2:15 PM CDT SUBJECTIVE REASON FOR VISIT Evaluation for side effects while receiving radiation treatment for 1. Malignant Neoplasm Of Breast Lower Inner Quadrant Female Right (HCC) HISTORY OF PRESENT ILLNESS Mrs. Shahrzad Solitario is a 55 y.o. 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 She is currently undergoing adjuvant whole breast andlymph node radiotherapy followed by boost to lumpectomy cavity. Treatment Course: 1x R BREAST_LN Plan ID Fractions Dose / Fraction (cGy) Dose Treated (cGy) Dose Planned (cGy) First Treatment Last Treatment Elapsed Days [id number] 200 1000 5000 07/01/2021 07/07/2021 6 Course Summary 07/01/2021 07/07/2021 6 The patient reports she is feeling well. She denies any breast pain or discomfort. She is applying topical moisturizing cream to her breast once a day. PATIENT REPORTED SYMPTOM SCREEN FATIGUE (Scale: 0 = no fatigue; 10 = worst fatigue you can imagine): 2 PAIN (Scale: 0 = no pain; 10 = worst pain you can imagine): 1 OVERALL QUALITY OF LIFE (Scale: 0 = as bad as can be; 10 = as good as can be): 10 OBJECTIVE There were no vitals taken for this visit. PHYSICAL EXAM General: Alert and oriented in no apparent distress. She was interviewed and examined at the treatment machine with the skiver operator of the therapists, EVERETTE Pike. Skin: Not examined. ASSESSMENT / PLAN #1 Stage IIB (cT2, cN1, cM0, G3, ER+, OK+, HER2-) invasive ductal carcinoma of the right breast #2 Neoadjuvant chemotherapy with??Adriamycin/Cytoxan for 4 cycles followed by weekly paclitaxel for 12 weeks??completed April 08, 2021 #3??Right breast lumpectomy, right axillary sentinel lymph node biopsy,??and??right axillary dissection on April 29, 2021 with final pathologic staging ypT1c, pN1mi, cM0, G2, ER+, OK+, HER2- #4 Right whole breast and regional lymph node radiotherapy followed by boost to the lumpectomy cavity initiated on July 01, 2021; anticipated completion on August 11, 2021 The patient is tolerating radiation treatment well. She will continue with radiation treatment as planned. Signed by: Bryant Waddell M.D. 07/07/21 2:12 PM CDT [facility] [address] [place] [id number] documented in this encounter Plan of Treatment Scheduled Orders Name Type Priority Associated Diagnoses Order S chedule Management Visit Radiation Oncology Routine Malignant Neoplasm Once for 1 Of Breast Lower Occurrences starting Inner Quadrant 07/07/2021 un til Female Right (HCC) 1 documented as of this encounter Visit Diagnoses Diagnosis Malignant Neoplasm Of Breast Lower Inner Quadrant Female Right (HCC) documented in this encounter
--- OUTSIDE RECORDS SUMMARY | 2022-07-16 22:03 | XMS_ITS | Encounter Summary ---
:1965 Author Organization [facility] Address [address] [place] [address] Care Team Providers Name Role Phone Unavailable Primary Care Provider Unavailable Encounter Details Date Type Department Care Team Description 03/31/1993 - 04/03/1993 Hospital Encounter HX RST 042 Social History Tobacco Use Types Packs/Day Years [...] you attend mormonism or Patient refused 2020 hindu services? Do [...] AM CDT documented as of this encounter Plan of Treatment Not on filedocumented as of this encounter Visit Diagnoses Not on filedocumented in this encounter
--- OUTSIDE RECORDS SUMMARY | 2022-07-16 22:03 | XMS_ITS | Encounter Summary ---
:1965 Author Organization [facility] Address [address] [place] [address] Care Team Providers Name Role Phone Unavailable Primary Care Provider Unavailable Reason for Referral Radiation Therapy (Routine) - Closed Specialty Diagnoses / Procedures Referred By Contact Refer red To Contact Diagnoses Malignant Neoplasm Of Breast Lower Inner Quadrant Female Right (HCC) Braynt Waddell M.D. [facility] Procedures Management Visit [address] [place] [address] Referral ID Status Reason Start Date Expiration Date Visits Requ ested Visits Authorized [id number] Closed 05/25/2021 05/25/2022 10 10 Reason for Visit Radiation Therapy (Routine) - Closed Specialty Diagnoses / Procedures Referred By Contact Refer red To Contact Diagnoses Malignant Neoplasm Of Breast Lower Inner Quadrant Female Right (HCC) Bryant Waddell M.D. [facility] Procedures Management Visit [address] [place] [address] Referral ID Status Reason Start Date Expiration Date Visits Requ ested Visits Authorized [id number] Closed 05/25/2021 05/25/2022 10 10 Encounter Details Date Type Department Care Team Description 07/21/2021 Hospital Encounter Department of Bryant Waddell Neoplasm Radiation Oncology Mac Kemp Of Breast Lower in [place], [address] [place], [place] Female Right (HCC) [address] [address] [place], [place] [phone] (Work) [phone] Social History Tobacco Use Types Packs/Day Years [...] or relatives? How often do you attend temple or Patient refused 2020 congregation services? Do you belong to any clubs or No 05/24/2021 organizations such as temple groups, unions, fraternal or athletic groups, or [...] place to sleep or slept in a [place] [facility] [place] facility (including now)? Education Answer Date Recorded What [...] tablet by mouth 0 10/16 daily. omega 6-uly-ras-fish oil Take by mouth. 0 1,000 mg (120 mg-180 mg) capsule UNABLE TO FIND Evening primrose 650 0 mg UNABLE TO FIND Flaxseed oil 1400 mg 0 UNABLE TO FIND Echinacea 800 mg 0 anastrozole (ARIMIDEX) 1 Take 1 mg by mouth 0 mg tablet daily. documented as of this encounter Progress Notes Bryant Waddell M.D. - 07/21/2021 3:30 PM CDT SUBJECTIVE REASON FOR VISIT Evaluation for side effects while receiving radiation treatment for 1. Malignant Neoplasm Of Breast Lower Inner Quadrant Female Right (HCC) HISTORY OF PRESENT ILLNESS Mrs. Shahrzad Solitario is a 55 y.o. female with stage IIB (cT2, cN1, cM0, G3, ER+, NV+, HER2-)invasive ductal carcinoma of the right breast. She is currently undergoing adjuvant whole breast andlymph node radiotherapy followed by boost to lumpectomy cavity. Treatment Course: 1x R BREAST_LN Plan ID Fractions Dose / Fraction (cGy) Dose Treated (cGy) Dose Planned (cGy) First Treatment Last Treatment Elapsed Days [id number] 200 3000 5000 07/01/2021 07/21/2021 20 Course Summary 07/01/2021 07/21/2021 20 The patient reports she is feeling mild fatigue. She also is experiencing some shooting pains in herright breast. These are brief in duration and 1 or 2/10 in severity. She is applying topical moisturizing cream to her breast once or twice a day. She has noted some scarring in her right breast. She continues to tie up worker. PATIENT REPORTED SYMPTOM SCREEN FATIGUE (Scale: 0 = no fatigue; 10 = worst fatigue you can imagine): 2 PAIN (Scale: 0 = no pain; 10 = worst pain you can imagine): 2 OVERALL QUALITY OF LIFE (Scale: 0 = as bad as can be; 10 = as good as can be): 10 OBJECTIVE There were no vitals taken for this visit. PHYSICAL EXAM General: Alert and oriented in no apparent distress. She was interviewed and examined at the treatment machine with the production floater of the therapist, EVERETTE June. Breasts: The skin appears normal. The right breast is smaller than the left. There is some scarring in the inferior aspect of the breast at the 6 o'clock position at inframammary ridge. I can feel no palpable nodularity. ASSESSMENT / PLAN #1 Stage IIB (cT2, cN1, cM0, G3, ER+, NV+, HER2-) invasive ductal carcinoma of the right breast #2 Neoadjuvant chemotherapy with??Adriamycin/Cytoxan for 4 cycles followed by weekly paclitaxel for 12 weeks??completed April 08, 2021 #3??Right breast lumpectomy, right axillary sentinel lymph node biopsy,??and??right axillary dissection on April 29, 2021 with final pathologic staging ypT1c, pN1mi, cM0, G2, ER+, NV+, HER2- #4 Right whole breast and regional lymph node radiotherapy followed by boost to the lumpectomy cavity initiated on July 01, 2021; anticipated completion on August 11, 2021 The patient is tolerating radiation treatment well. I reassured her that the shooting pains is he isexperiencing are normal as is the scarring that she has at her lumpectomy cavity site. We discussed doing deeper tissue massage to break up the scarring after she has recovered from radiotherapy. She verbalized satisfaction with this plan. She will continue with radiation treatment as planned. Signed by: Bryant Waddell M.D. 07/21/21 5:27 PM CDT [facility] [address] [place] [address] documented in this encounter Plan of Treatment Scheduled Orders Name Type Priority Associated Diagnoses Order S chedule Management Visit Radiation Oncology Routine Malignant Neoplasm Once for 1 Of Breast Lower Occurrences starting Inner Quadrant 07/21/2021 un til Female Right (HCC) documented as of this encounter Visit Diagnoses Diagnosis Malignant Neoplasm Of Breast Lower Inner Quadrant Female Right (HCC) documented in this encounter
--- OUTSIDE RECORDS SUMMARY | 2022-07-16 22:03 | XMS_ITS | Encounter Summary ---
:1965 Author Organization [facility] Address [address] [place] [address] Care Team Providers Name Role Phone Unavailable Primary Care Provider Unavailable Reason for Visit Radiation Therapy (Routine) - Closed Specialty Diagnoses / Procedures Referred By Contact Refer red To Contact Diagnoses Malignant Neoplasm Of Breast Lower Inner Quadrant Female Right (HCC) Bryant Waddell M.D. [facility] Procedures Prior Auth Rad Tx [place] IMRT SIMPLE [address] [place] [address] Referral ID Status Reason Start Date Expiration Date Visits Requ ested Visits Authorized [id number] Closed 05/25/2021 05/25/2022 30 30 Encounter Details Date Type Department Care Team Description 07/20/2021 Hospital Encounter Department of Radiation Neal Waddell, Oncology in [place] [address] [facility] [address] [place] [id number] [phone] Social History Tobacco Use Types Packs/Day Years [...] or relatives? How often do you attend episcopalian or Patient refused 2020 christianity services? Do you belong to any clubs or No 05/24/2021 organizations such as episcopalian groups, unions, fraternal or athletic groups, or [...] tablet by mouth 0 10/16 daily. omega 6-ifu-awk-fish oil Take by mouth. 0 1,000 mg [...]
--- OUTSIDE RECORDS SUMMARY | 2022-07-16 22:03 | XMS_ITS | Encounter Summary ---
:1965 Author Organization [facility] Address [address] [place] [address] Care Team Providers Name Role Phone Unavailable Primary Care Provider Unavailable Reason for Visit Radiation Therapy (Routine) - Closed Specialty Diagnoses / Procedures Referred By Contact Refer red To Contact Diagnoses Malignant Neoplasm Of Breast Lower Inner Quadrant Female Right (HCC) Bryant Waddell M.D. [facility] Procedures Prior Auth Rad Tx [place] IMRT SIMPLE [address] [place], [place] [phone] Referral ID Status Reason Start Date Expiration Date Visits Requ ested Visits Authorized [id number] Closed 05/25/2021 05/25/2022 30 30 Encounter Details Date Type Department Care Team Description 07/06/2021 Hospital Encounter Department of Radiation Neal Waddell, Oncology in [place] [address] [facility] [address] [place] [id number] [phone] Social History Tobacco Use Types Packs/Day Years [...] you attend zoroastrianism or Patient refused 2020 restorationism services? Do [...] place to sleep or slept in a senior living (including now)? Education Answer Date Recorded What [...] tablet by mouth 0 10/16 daily. omega 8-nwq-yuc-fish oil Take by mouth. 0 1,000 mg [...]
--- OUTSIDE RECORDS SUMMARY | 2022-07-16 22:03 | XMS_ITS | Encounter Summary ---
:1965 Author Organization [facility] Address [address] [place] [address] Care Team Providers Name Role Phone Unavailable Primary Care Provider Unavailable Reason for Visit Radiation Therapy (Routine) - Closed Specialty Diagnoses / Procedures Referred By Contact Refer red To Contact Diagnoses Malignant Neoplasm Of Breast Lower Inner Quadrant Female Right (HCC) Bryant Waddell M.D. [facility] Procedures Prior Auth Rad Tx [place] IMRT SIMPLE [address] [place], [place] [phone] Referral ID Status Reason Start Date Expiration Date Visits Requ ested Visits Authorized [id number] Closed 05/25/2021 05/25/2022 30 30 Encounter Details Date Type Department Care Team Description 07/02/2021 Hospital Encounter Department of Radiation Neal Waddell, Oncology in [place] [address] [facility] [address] [place] [phone] Social History Tobacco Use Types Packs/Day Years [...] or relatives? How often do you attend hinduism or Patient refused 2020 episcopal services? Do you belong to any clubs or No 05/24/2021 organizations such as hinduism groups, unions, fraternal or athletic groups, or [...] tablet by mouth 0 10/16 daily. omega 6-mte-fce-fish oil Take by mouth. 0 1,000 mg [...]
--- OUTSIDE RECORDS SUMMARY | 2022-07-16 22:03 | XMS_ITS | Encounter Summary ---
:1965 Author Organization [facility] Address [address] [place] [address] Care Team Providers Name Role Phone Unavailable Primary Care Provider Unavailable Reason for Visit Appointment Request (Routine) - Closed Specialty Diagnoses / Procedures Referred By Contact Refer red To Contact Radiation Oncology Diagnoses Breast Cancer (Primary) NOS Adriana Anderson M.D. [address] [place] [address] Referral ID Status Reason Start Date Expiration Date Visits Requ ested Visits Authorized [id number] Closed 05/11/2021 05/11/2022 1 1 Encounter Details Date Type Department Care Team Description 05/26/2021 Hospital Encounter Department of Bryant Waddell Neoplasm Radiation Oncology [place] Of Breast Lower in [address] Female Right (HCC) [address] [facility] [address] (Primary Dx) [place] [employer], [place] [phone] (Work) [phone] Social History Tobacco Use Types Packs/Day Years [...] or relatives? How often do you attend alevism or Patient refused 2020 restoration services? Do you belong to any clubs or No 05/24/2021 organizations such as alevism groups, unions, fraternal or athletic groups, or [...] place to sleep or slept in a snf (including now)? Education Answer Date Recorded What [...] Pulse 105 05/26/2021 2:25 PM CDT Temperature 36.2 ??C (97.2 ??F) 05/26/2021 2:25 PM CDT Respiratory Rate - - Oxygen Saturation - - Inhaled Oxygen Concentration - - Weight 111 kg (243 lb 13.3 oz) 05/26/2021 2:25 PM CDT Height 165 cm (5' 4.96) 05/26/2021 2:25 PM CDT Body Mass Index 40.62 05/26/2021 2:25 PM CDT documented in this [...] tablet by mouth 0 10/16 daily. omega 1-wom-wvd-fish oil Take by mouth. 0 1,000 mg (120 mg-180 mg) capsule UNABLE TO FIND Evening primrose 650 0 mg UNABLE TO FIND Flaxseed oil 1400 mg 0 UNABLE TO FIND Echinacea 800 mg 0 documented as of this encounter Consult Notes Gloria Stapleton P.A.-C., M.S. - 05/26/2021 2:30 PM CDT SUBJECTIVE REQUESTING PROVIDER Adriana Anderson M.D. REASON FOR CONSULT 1. Malignant Neoplasm Of Breast Lower Inner Quadrant Female Right (HCC) SUPERVISED BY: Bryant Waddell M.D. ([phone]) HISTORY OF PRESENT ILLNESS Mrs. Shahrzad Solitario is a 55-year-old female with stage IIB (cT2, cN1, cM0, G3, ER+, NJ+, HER2-) invasive ductal carcinoma of the right breast, who presents today for an opinion regarding the role of radiation therapy in the management of the patient's disease. Her oncologic history is as follows: 1. [...] demonstrated invasive ductal carcinoma with associated necrosis, Rhiannon grade 3. Angiolymphatic invasion was not identified. [...] right breast demonstrated residual invasive ductal carcinoma, [place] grade 2, measuring 13 x 12 mm. [...] neuropathy. Follow-up at the end of radiation. INTERVAL HISTORY The patient was seen and examined today with Dr. Waddell. The patient reports doing well overall. She reports good energy overall, but she does get short of breath easier. She is continuing to work full-time from home. She reports healing well following surgery. She has mild tenderness of the surgical site, but denies maeve pain. She is not taking any pain medication. She has already gone to therapy and had initial lymphedema measurements. She reports good right arm range of motion. She does have neuropathy in her feet bilaterally, worse on the right, and mild in her hands following chemotherapy. She was just recently started on gabapentin 100 mg, which has not helped yet. The patient denies a history of prior radiation therapy, connective tissue disorders, or inflammatory bowel disease. Her ECOG performance status is 0. REVIEW OF SYSTEMS Review of systems was negative except as documented above. PATIENT REPORTED SYMPTOM SCREEN PAIN (Scale: 0 = no pain; 10 = worst pain you can imagine): 0 PAST MEDICAL HISTORY 1. Dyslipidemia 2. Prediabetes 3. Hepatic steatosis 4. Elevated LFTs 5. Anxiety 6. Intermittent palpitations 7. Hypertension 8. Allergies 9. Right sided breast cancer 10. Chemotherapy-induced peripheral neuropathy PAST SURGICAL HISTORY 1. section x2 2. Right breast lumpectomy, right axillary sentinel lymph node biopsy, and right axillary dissection, 2020 FAMILY HISTORY No family history of breast cancer or ovarian cancer. Two maternal uncles with cancer, one with esophageal and the other with an unknown type, possibly related to [place]. SOCIAL HISTORY She lives in [place], [place]. She is to her , [place]. She has 2 children, ages 32 and 28. She has 6 grandchildren. They live in [place] and [place]. 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 She is a former smoker with a 12 pack-year history, quit in January 2019. She rarely consumes alcohol. OBJECTIVE BP (!) 146/103 (BP Location: Left arm, Patient Position: Sitting, Cuff Size: Small) Pulse 105 Temp 36.2 ??C (Temporal) Ht 165 cm Wt 111 kg BMI 40.62 kg/m?? PHYSICAL EXAM GENERAL: Alert and oriented in no apparent distress. ASSESSMENT / PLAN #1 Stage IIB (cT2, cN1, cM0, G3, ER+, NJ+, HER2-) invasive ductal carcinoma of the right breast #2 Neoadjuvant chemotherapy with Adriamycin/Cytoxan for 4 cycles followed by weekly paclitaxel for 12 weeks completed April 08, 2021 #3 Right breast lumpectomy, right axillary sentinel lymph node biopsy, and right axillary dissectionon April 29, 2021 with final pathologic staging ypT1c, pN1mi, cM0, G2, ER+, NJ+, HER2- I had a discussion with the patient regarding her breast cancer diagnosis including information regarding her staging, grade, and hormone receptors. We reviewed her oncologic history as detailed above.We also had a detailed discussion regarding the risks, benefits, and alternatives of radiotherapy in this setting. We discussed options for radiation therapy. We focused primarily on discussion of treatment to the whole right breast with a boost and regional lymph nodes in a total of 30 treatments. I discussed the logistics as well as the acute and chronic side effects of radiotherapy. The acute side effects are common and include fatigue, radiation dermatitis, breast erythema, swelling, and discomfort, and possible sore throat (if neck is irradiated). Long-term side effects include skin changesand texture changes of the breast, possible breast asymmetry, pulmonary scarring (typically of no clinical significance), radiation pneumonitis, increased risk of rib fracture with significant trauma, lymphedema, small increased risk of coronary artery disease (if left breast/chest wall is irradiated), very small risk of nerve injury to the brachial plexus (if neck is irradiated), hypothyroidism (if neck is irradiated), and a very small risk of secondary malignancy. The patient was provided with a written summary of recommendations. Her questions were answered to her verbalized satisfaction. The patient is scheduled for CT simulation on Monday, May 31, 2021. She would like to continue working full-time during treatment. She works from home and works from approximately 6 am - 2:30 pm. She would therefore prefer late afternoon treatments when she is done with work. I have shared this information with our radiation therapists today. She was provided with our contact information and askedto contact us with questions or concerns. She verbally expressed her understanding of the plan. EDUCATION Ready to learn, no apparent learning barriers were identified; learning preferences include listening. Explained diagnosis and treatment plan; patient expressed understanding of the content. CONSENT Discussed the risks, benefits, alternatives, and the necessity of other members of the healthcare team participating in the procedure. All questions answered and consent given. PRIMARY PROVIDER Dr. Charlotte Salcido I personally spent 60 minutes in care of the patient today. Time includes both non face to face and face to face patient care. Signed by: Gloria Stapleton P.A.-C., M.S. 05/26/2021 3:20 PM CDT [facility] [address] [place] [address] Associated attestation - Bryant Waddell M.D. - 05/26/2021 5:45 PM CDT I saw and evaluated the patient and participated in the bernardo portions of the service. I reviewed the documentation of Gloria Stapleton P.A.-C. and agree with the findings and plan. In brief, Mrs. Shahrzad Solitario is a 55-year-old female with stage IIB (cT2, cN1, cM0, G3, ER+, NJ+, HER2-) invasive ductal carcinoma of the right breast. We are asked by Dr. Anderson to evaluate the patient for adjuvant radiotherapy. Her history is well detailed in Ms. Stapleton's note. In brief, she s elf detected a right breast mass in September of 2020. Mammography on October 19, 2020 revealed a massin the lower inner quadrant of the right breast as well as a prominent low right axillary lymph node. Ultrasound-guided core biopsy of the right breast at the 5 o'clock position confirmed invasive ductal carcinoma, grade 3, ER positive, NJ positive, HER2 negative. An ultrasound-guided core needle biopsy of the right axillary lymph node also confirmed metastatic carcinoma measuring 0.7 cm without extracapsular extension. An MRI of the bilateral breasts on November 04, 2020 revealed a 2.5 cm lesion in the lower inner aspect of the right breast as well as a 1.7 cm low-lying right axillary lymph node. There was no other area of suspicious adenopathy. She was treated with 4 cycles of Adriamycin and Cytoxan followed by weekly paclitaxel for 12 weeks finishing her neoadjuvant chemotherapy on April 08, 2021. Subsequent MRI on April 13, 2021 showed a response with volume reduction. Dr. Anderson performed a right lumpectomy and right axillary sentinel lymph node biopsy followed by right axillary dissection on April 29, 2021 with pathology confirming residual invasive ductal carcinoma, grade 2, measuring 13 x 12 mm along with residual DCIS. Margins were negative by 5 mm to both the invasive and DCIS components. One of 3 right sentinel lymph nodes demonstrated 2 mm of residual disease with no extracapsular extension. Further 9 lymph nodes were removed that were all negative. Hence she had pathologic stage yp T1c pN1mi M0. She is recovering well now from her surgery though she is still quite tired. She is currently undergoing physical therapy. 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 Her ECOG performance status is 0. OBJECTIVE PHYSICAL EXAM General: Patient is awake, alert, and oriented to person, place, and time. No apparent distress. Herexam was chaperoned by Shnaika Hsu R.N. ENT: Pupils equal, round, and reactive to light. Sclerae anicteric. Oral cavity inspection reveals moist mucous membranes and no visible lesions. Neck: Supple. Lymph: No palpable cervical, supraclavicular, infraclavicular, or axillary adenopathy. Spine: No tenderness to palpation or fist percussion. Lungs: Clear to auscultation bilaterally. Heart: Regular rate and rhythm. Normal S1 and S2. No murmurs. Abdomen: Soft, nontender, nondistended. Normal active bowel sounds are present. Extremities: Wrist circumference is equal and normal bilaterally. Radial pulses are full. Her upper extremity range of motion is normal. She has mild edema around her left ankle that is chronic but none any higher and none in her right leg. Neurologic: Gait is normal. Breasts: Examined in the sitting and supine positions. The right breast has an everted nipple there is some residual dye present at the superior aspect of the nipple-areolar complex from her sentinel lymph node biopsy identification. There is a well-healed surgical scar on the lateral aspect of the nipple-areolar complex from her lumpectomy with an area of surgical defect just inferior to this in medially. She has scattered fibroglandular changes but no palpable masses. She has well-healed drain in surgical scars in the right axilla. The left breast has an everted nipple with scattered fibroglandular changes but no palpable masses, no overlying skin changes, and no expressible nipple discharge. DIAGNOSTICS I reviewed the patient's mammography, MR imaging, and pathology. ASSESSMENT / PLAN #1 Stage IIB (cT2, cN1, cM0, G3, ER+, NJ+, HER2-) invasive ductal carcinoma of the right breast #2 Neoadjuvant chemotherapy with Adriamycin/Cytoxan for 4 cycles followed by weekly paclitaxel for 12 weeks completed April 08, 2021 #3 Right breast lumpectomy, right axillary sentinel lymph node biopsy, and right axillary dissectionon April 29, 2021 with final pathologic staging ypT1c, pN1mi, cM0, G2, ER+, NJ+, HER2- I had a detailed discussion with the patient regarding the risks, benefits, and alternatives of radiotherapy in this setting. I reviewed the NCCN guidelines in formulating my recommendations. I went over these with the patient. We discussed whole breast radiotherapy and regional masoud irradiation withstandard fractionation to a dose of 50 Gy in 25 fractions standard fractionation followed by a 10 Gyin 5 fraction boost to the lumpectomy cavity. I favor this over hypofractionated whole breast radiotherapy with high tangents to a dose of 4005 cGy in 15 fractions with a boost of 1000 cGy in 4 fractions to the lumpectomy cavity because of the patient's residual masoud and tumor disease despite neoadjuvant chemotherapy. The patient agreed to proceeding with standard fractionation treatment with regional masoud irradiation. I discussed the logistics of treatment in detail. Ms. Stapleton discussed the acute and chronic side effects of treatment in detail. For a complete listing of these, please see her note. After this discussion I provided the patient with a written summary my recommendations. Her questions were answered to her verbalized satisfaction. She stated that she would like to proceed with treatment and signed the consent form. She would like to wait to begin treatment until mid June after she has had some more time for recovery and work with physical therapy. I think this is just fine. She will return for CT simulation on June 23, 2021. My thanks to Drs. Anderson and Loly and Ms. Nguyen for the opportunity to participate this patient's care. I spent a total of 35 minutes with the patient, 30 minutes of which was spent counseling and coordinating care. Signed by: Bryant Waddell M.D. 05/26/2021 5:45 PM CDT [facility] [place] documented in this encounter Miscellaneous Notes Addendum Note - Sofy Matthew - 05/26/2021 2:30 PM CDT Encounter addended by: Sofy Matthew on: 05/27/2021 8:06 AM Actions taken: Letter saved documented in this encounter Plan of Treatment Not on filedocumented as of this encounter Visit Diagnoses Diagnosis Malignant Neoplasm Of Breast Lower Inner Quadrant Female Right (HCC) - Primary documented in this encounter
--- OUTSIDE RECORDS SUMMARY | 2022-07-16 22:03 | XMS_ITS | Encounter Summary ---
:1965 Author Organization [facility] Address [address] [place] [address] Care Team Providers Name Role Phone Unavailable Primary Care Provider Unavailable Reason for Referral Specialty Diagnoses / Procedures Referred By Contact Refer red To Contact Gloria Stapleton P.A.-C ., M.S. [facility] Region [address] [place], [place] [address] Referral ID Status Reason Start Date Expiration Date Visits Requ ested Visits Authorized Radiation Therapy (Routine) - Closed Specialty Diagnoses / Procedures Referred By Contact Refer red To Contact Diagnoses Malignant Neoplasm Of Breast Lower Inner Quadrant Female Right (HCC) Bryant Waddell M.D. [facility] Procedures Management Visit [address] [place], [place] [address] Referral ID Status Reason Start Date Expiration Date Visits Requ ested Visits Authorized [id number] Closed 05/25/2021 05/25/2022 10 10 Radiation Therapy (Routine) - Closed Specialty Diagnoses / Procedures Referred By Contact Refer red To Contact Diagnoses Malignant Neoplasm Of Breast Lower Inner Quadrant Female Right (HCC) Bryant Waddell M.D. [facility] Procedures Prior Auth Rad Tx [place] IMRT SIMPLE [address] [place], [place] [phone] Referral ID Status Reason Start Date Expiration Date Visits Requ ested Visits Authorized [id number] Closed 05/25/2021 05/25/2022 30 30 Radiation Therapy (Routine) - Closed Specialty Diagnoses / Procedures Referred By Contact Refer red To Contact Diagnoses Malignant Neoplasm Of Breast Lower Inner Quadrant Female Right (HCC) Bryant Waddell M.D. [facility] Procedures Initial Rad Onc Treatment Planning CT Simulation [address] [place], [place] [address] Referral ID Status Reason Start Date Expiration Date Visits Requ ested Visits Authorized [id number] Closed 05/25/2021 05/25/2022 1 1 Encounter Details Date Type Department Care Team Description 05/25/2021 Orders Only Department of Radiation Gloria Stapleton Mal ignant Neoplasm Of Oncology in [place], [place]rist[place], M.S. Breast Lower [facility] [address] [facility] Quadrant Female Right [address] [place], [place] (HCC) (Primary Dx) [place] [address] [phone] Social History Tobacco Use Types Packs/Day Years [...] or relatives? How often do you attend presybeterian or Patient refused 2020 yazidi services? Do you belong to any clubs or No 05/24/2021 organizations such as presybeterian groups, unions, fraternal or athletic groups, or [...] place to sleep or slept in a care home (including now)? Education Answer Date Recorded What is the highest level of school you have completed or 12 th grade 05/24/2021 the highest degree you have received? Sex Assigned at Date Recorded Female 07/26/2021 6:15 AM CDT documented as of this encounter Plan of Treatment Scheduled Orders Name Type Priority Associated Order Schedule Diagnoses Prior Auth Rad Tx Radiation Oncology Routine Malignant Neoplas m Ordered: 05/25/2021 Of Breast Lower Inner Quadrant Female Right (HCC) Management Visit Radiation Oncology Routine Malignant Neoplasm 10 Occurrences Of Breast Lower starting 07/2021 Inner Quadrant until 022 Female Right (HCC) Scheduled Referrals Name Type Priority Associated Diagnoses Order S chedule Radiation Oncology Outpatient Referral Routine Malignant Neopl asm Expected: - Nurse education Of Breast Lower 021 visit (clinic) Inner Quadrant (Approximat e), Female Right (HCC) Expires: 05/25/2022 documented as of this encounter Results Initial Rad Onc Treatment Planning CT Simulation (06/23/2021 1:58 PM CDT) Specimen (Source) Anatomical Location Collection Method / Collectio n Time Received Time / Laterality Volume Narrative ISABELLE WESTFALL - 06/23/2021 1:58 PM CDT Lisbet Gómez, RTT ? 06/23/2021 ??1:59 PM Initial Rad Onc Treatment Planning CT Si mulation Date/Time: 06/23/2021 1:58 PM Performed by: Bryant Waddell M.D. Authorized by: Bryant Waddell M.D. Bryant Waddell M.D. RADIATION ONCOLOGY ORDERABLE S Performing Organization Address City/State/ZIP Code Phon e Number [place] documented in this encounter Visit Diagnoses Diagnosis Malignant Neoplasm Of Breast Lower Inner Quadrant Female Right (HCC) - Primary Malignant Neoplasm Of Breast Lower Inner Quadrant Female Right (HCC) documented in this encounter
--- OUTSIDE RECORDS SUMMARY | 2022-07-16 22:03 | XMS_ITS | Encounter Summary ---
:1965 Author Organization [facility] Address [address] [place] [address] Care Team Providers Name Role Phone Unavailable Primary Care Provider Unavailable Reason for Referral Specialty Diagnoses / Procedures Referred By Contact Refer red To Contact Gloria Stapleton P.A.-C ., M.S. [facility] Region [address] [place] [phone] Referral ID Status Reason Start Date Expiration Date Visits Requ ested Visits Authorized Encounter Details Date Type Department Care Team Description 07/05/2021 Hospital Encounter Department of Miki Waddell M.D. [address] [place] [address] [phone] Malignant Neoplasm Radiation Oncology Shanika Hsu, R.NSolo [address] [place] [address] [phone] Of Breast Lower in [facility] Female Right (HCC) [address] [place] [address] Social History Tobacco Use Types Packs/Day Years [...] or relatives? How often do you attend rastafarian or Patient refused 2020 mormon services? Do you belong to any clubs or No 05/24/2021 organizations such as rastafarian groups, unions, fraternal or athletic groups, or [...] Pressure - - Pulse - - Temperature - - Respiratory Rate - - Oxygen Saturation - - Inhaled Oxygen Concentration - - Weight 112 kg (247 lb 9.2 oz) 07/05/2021 3:00 PM CDT Height - - Body Mass Index 41.25 05/26/2021 2:25 PM CDT documented in this [...] tablet by mouth 0 10/16 daily. omega 0-jnv-wde-fish oil Take by mouth. 0 1,000 mg (120 mg-180 mg) capsule UNABLE TO FIND Evening primrose 650 0 mg UNABLE TO FIND Flaxseed oil 1400 mg 0 UNABLE TO FIND Echinacea 800 mg 0 anastrozole (ARIMIDEX) 1 Take 1 mg by mouth 0 mg tablet daily. documented as of this encounter Plan of Treatment Scheduled Referrals Name Type Priority Associated Order Schedule Diagnoses Radiation Oncology Outpatient Referral Routine Malignant Neopl asm Once for 1 - Nurse education Of Breast Lower Occurre nces starting visit (clinic) Inner Quadrant 07/05/2021 until Female Right (HCC) documented as of this encounter Visit Diagnoses Diagnosis Malignant Neoplasm Of Breast Lower Inner Quadrant Female Right (HCC) documented in this encounter
--- OUTSIDE RECORDS SUMMARY | 2022-07-16 22:03 | XMS_ITS | Encounter Summary ---
:1965 Author Organization [facility] Address [address] [place] [address] Care Team Providers Name Role Phone Unavailable Primary Care Provider Unavailable Encounter Details Date Type Department Care Team Description 03/25/1993 - 03/27/1993 Hospital Encounter HX RST 031 Social History Tobacco Use Types Packs/Day Years [...] or relatives? How often do you attend scientology or Patient refused 2020 spiritism services? Do you belong to any clubs or No 05/24/2021 organizations such as scientology groups, unions, fraternal or athletic groups, or [...] or slept in a jail (including now)? Sex Assigned at Date Recorded Female 07/26/2021 6:15 AM CDT documented as of this encounter Plan of Treatment Not on filedocumented as of this encounter Visit Diagnoses Not on filedocumented in this encounter
--- OUTSIDE RECORDS SUMMARY | 2022-07-16 22:03 | XMS_ITS | Encounter Summary ---
:1965 Author Organization [facility] Address [address] [place] [address] Care Team Providers Name Role Phone Unavailable Primary Care Provider Unavailable Reason for Visit Radiation Therapy (Routine) - Closed Specialty Diagnoses / Procedures Referred By Contact Refer red To Contact Diagnoses Malignant Neoplasm Of Breast Lower Inner Quadrant Female Right (HCC) Bryant Waddell M.D. [facility] Procedures Prior Auth Rad Tx [place] IMRT SIMPLE [address] [place], [place] [phone] Referral ID Status Reason Start Date Expiration Date Visits Requ ested Visits Authorized [id number] Closed 05/25/2021 05/25/2022 30 30 Encounter Details Date Type Department Care Team Description 07/13/2021 Hospital Encounter Department of Radiation Neal Waddell, Oncology in [place] [address] [facility] [address] [place] [address] [phone] Social History Tobacco Use Types Packs/Day Years [...] you attend presybeterian or Patient refused 2020 moravian services? Do [...] tablet by mouth 0 10/16 daily. omega 3-ygv-dla-fish oil Take by mouth. 0 1,000 mg [...]
--- OUTSIDE RECORDS SUMMARY | 2022-07-16 22:03 | XMS_ITS | Encounter Summary ---
:[address] 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 [facility] Procedures Prior Auth Rad Tx [place] IMRT SIMPLE [address] [place], [place] [phone] Referral ID Status Reason Start Date Expiration Date Visits Requ ested Visits Authorized [id number] Closed 05/25/2021 05/25/2022 30 30 Encounter Details Date Type Department Care Team Description 07/05/2021 Hospital Encounter Department of Radiation Neal Waddell, Oncology in [place] [address] [facility] [address] [place] [address] [phone] Social History Tobacco Use Types Packs/Day Years [...] you attend evangelical or Patient refused 2020 oriental orthodox services? Do you belong to any clubs [...] place to sleep or slept in a fdc (including now)? Education Answer Date Recorded What [...] tablet by mouth 0 10/16 daily. omega 8-xhi-iye-fish oil Take by mouth. 0 1,000 mg [...]
--- OUTSIDE RECORDS SUMMARY | 2022-07-16 22:03 | XMS_ITS | Encounter Summary ---
:1965 Author Organization [facility] Address [address] [place] [address] Care Team Providers Name Role Phone Unavailable Primary Care Provider Unavailable Encounter Details Date Type Department Care Team Description 09/04/2020 Admin Visit Department of Family Medicine, [address] [address] [facility] [phone] Social History Tobacco Use Types Packs/Day Years [...] or relatives? How often do you attend protestant or Patient refused 2020 roman catholic services? Do you belong to any clubs or No 05/24/2021 organizations such as protestant groups, unions, fraternal or athletic groups, or [...] or slept in a chcf (including now)? Sex Assigned at Date Recorded Female 07/26/2021 6:15 AM CDT documented as of this encounter Plan of Treatment Not on filedocumented as of this encounter Visit Diagnoses Not on filedocumented in this encounter
--- OUTSIDE RECORDS SUMMARY | 2022-07-16 22:03 | XMS_ITS | Encounter Summary ---
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 [facility] Procedures Prior Auth Rad Tx [place] IMRT SIMPLE [address] [place] [address] Referral ID Status Reason Start Date Expiration Date Visits Requ ested Visits Authorized [id number] Closed 05/25/2021 05/25/2022 30 30 Encounter Details Date Type Department Care Team Description 07/16/2021 Hospital Encounter Department of Radiation Neal Waddell, Oncology in [place] [address] [facility] [address] [place] [address] [phone] Social History Tobacco Use Types Packs/Day Years [...] or relatives? How often do you attend sabianism or Patient refused 2020 yarsani services? Do you belong to any clubs or No 05/24/2021 organizations such as sabianism groups, unions, fraternal or athletic groups, or [...] tablet by mouth 0 10/16 daily. omega 2-evg-bha-fish oil Take by mouth. 0 1,000 mg [...]
--- OUTSIDE RECORDS SUMMARY | 2022-07-16 22:03 | XMS_ITS | Encounter Summary ---
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 [facility] Procedures Prior Auth Rad Tx [place] IMRT SIMPLE [address] [place], [place] [phone] Referral ID Status Reason Start Date Expiration Date Visits Requ ested Visits Authorized [id number] Closed 05/25/2021 05/25/2022 30 30 Encounter Details Date Type Department Care Team Description 07/15/2021 Hospital Encounter Department of Radiation Neal Waddell, Oncology in [place] [address] [facility] [address] [place] [address] [phone] Social History Tobacco Use Types Packs/Day Years [...] or relatives? How often do you attend buddhist or Patient refused 2020 quaker services? Do you belong to any clubs or No 05/24/2021 organizations such as buddhist groups, unions, fraternal or athletic groups, or [...] tablet by mouth 0 10/16 daily. omega 2-adm-pcg-fish oil Take by mouth. 0 1,000 mg [...]
--- OUTSIDE RECORDS SUMMARY | 2022-07-16 22:03 | XMS_ITS | Encounter Summary ---
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 [facility] Procedures Management Visit [address] [place], [place] [phone] Referral ID Status Reason Start Date Expiration Date Visits Requ ested Visits Authorized [id number] Closed 05/25/2021 05/25/2022 10 10 Encounter Details Date Type Department Care Team Description 07/13/2021 Hospital Encounter Department of Teresa Lawrence Neoplasm Radiation Oncology [place] Of Breast Lower in [place], [address] [place], [place] Female Right (HCC) [address] [facility] [address] [place], [place] [phone] (Work) [phone] Social History Tobacco Use Types Packs/Day Years [...] you attend yarsani or Patient refused 2020 yazdanism services? Do you belong to any clubs [...] tablet by mouth 0 10/16 daily. omega 2-axf-xik-fish oil Take by mouth. 0 1,000 mg (120 mg-180 mg) capsule UNABLE TO FIND Evening primrose 650 0 mg UNABLE TO FIND Flaxseed oil 1400 mg 0 UNABLE TO FIND Echinacea 800 mg 0 anastrozole (ARIMIDEX) 1 Take 1 mg by mouth 0 mg tablet daily. documented as of this encounter Progress Notes Teresa Lawrence M.D. - 07/13/2021 3:15 PM CDT Diagnosis: Right breast cancer Radiation Treatment Progress Summary Treatment Course: 1x R BREAST_LN Plan ID Fractions Dose / Fraction (cGy) Dose Treated (cGy) Dose Planned (cGy) First Treatment Last Treatment Elapsed Days [id number] 200 1800 5000 07/01/2021 07/13/2021 12 F36 RBreast Boost 0/ 250 1000 Course Summary 07/01/2021 07/13/2021 12 SUBJECTIVE Mrs. Shahrzad Solitario a 55 y.o. reports that she feels with her only complaint being fatigue.She denies breast pain, chest pain, shortness of breath, cough or fevers. She is doing well. OBJECTIVE There were no vitals taken for this visit. PHYSICAL EXAM General: Alert and oriented in no apparent distress. She was interviewed and examined at the treatment machine. Breasts: No erythema in the treatment field. ASSESSMENT / PLAN #1 Stage IIB (cT2, cN1, cM0, G3, ER+, KS+, HER2-) invasive ductal carcinoma of the right breast #2 Neoadjuvant chemotherapy with??Adriamycin/Cytoxan for 4 cycles followed by weekly paclitaxel for 12 weeks??completed April 08, 2021 #3??Right breast lumpectomy, right axillary sentinel lymph node biopsy,??and??right axillary dissection on April 29, 2021 with final pathologic staging ypT1c, pN1mi, cM0, G2, ER+, KS+, HER2- #4 Right whole breast and regional lymph node radiotherapy followed by boost to the lumpectomy cavity initiated on July 01, 2021; anticipated completion on August 11, 2021 The patient is tolerating radiotherapy well. We will continue as planned. Signed by: Teresa Lawrence M.D. 07/13/2021 3:45 PM CDT documented in this encounter Plan of Treatment Scheduled Orders Name Type Priority Associated Diagnoses Order S chedule Management Visit Radiation Oncology Routine Malignant Neoplasm Once for 1 Of Breast Lower Occurrences starting Inner Quadrant 07/13/2021 un til Female Right (HCC) documented as of this encounter Visit Diagnoses Diagnosis Malignant Neoplasm Of Breast Lower Inner Quadrant Female Right (HCC) documented in this encounter
--- OUTSIDE RECORDS SUMMARY | 2022-07-16 22:03 | XMS_ITS | Encounter Summary ---
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 [facility] Procedures Prior Auth Rad Tx [place] IMRT SIMPLE [address] [place], [place] [phone] Referral ID Status Reason Start Date Expiration Date Visits Requ ested Visits Authorized [id number] Closed 05/25/2021 05/25/2022 30 30 Encounter Details Date Type Department Care Team Description 07/12/2021 Hospital Encounter Department of Radiation Neal Waddell, Oncology in [place] [address] [facility] [address] [place] [address] [phone] Social History Tobacco Use Types Packs/Day Years [...] you attend adventism or Patient refused 2020 cheondoism services? Do you belong to any clubs [...] tablet by mouth 0 10/16 daily. omega 1-ybt-fcc-fish oil Take by mouth. 0 1,000 mg [...]
--- OUTSIDE RECORDS SUMMARY | 2022-07-16 22:03 | XMS_ITS | Encounter Summary ---
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 [facility] Procedures Prior Auth Rad Tx [place] IMRT SIMPLE [address] [place], [place] [phone] Referral ID Status Reason Start Date Expiration Date Visits Requ ested Visits Authorized [id number] Closed 05/25/2021 05/25/2022 30 30 Encounter Details Date Type Department Care Team Description 07/07/2021 Hospital Encounter Department of Radiation Neal Waddell, Oncology in [place] [address] [facility] [address] [place] [address] [phone] Social History Tobacco Use Types Packs/Day Years [...] you attend baptist or Patient refused 2020 congregational services? Do you belong to any clubs [...] place to sleep or slept in a longterm (including now)? Education Answer Date Recorded What [...] tablet by mouth 0 10/16 daily. omega 9-rxi-jom-fish oil Take by mouth. 0 1,000 mg [...]
--- OUTSIDE RECORDS SUMMARY | 2022-07-16 22:03 | XMS_ITS | Encounter Summary ---
:1965 Author Organization [facility] Address [address] [place] [address] Care Team Providers Name Role Phone Unavailable Primary Care Provider Unavailable Encounter Details Date Type Department Care Team Description 06/25/2021 Orders Only [facility] PCP TH Sa nevin Muro M.D. [address] [place], [place] [phone] (Wo rk) Social History Tobacco Use Types [...] or relatives? How often do you attend cheondoism or Patient refused 2020 buddhist services? Do you belong to any clubs or No 05/24/2021 organizations such as cheondoism groups, unions, fraternal or athletic groups, or [...] place to sleep or slept in a retirement (including now)? Education Answer Date Recorded What [...]
--- OUTSIDE RECORDS SUMMARY | 2022-07-16 22:03 | XMS_ITS | Encounter Summary ---
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 [facility] Procedures Prior Auth Rad Tx [place] IMRT SIMPLE [address] [place] [address] Referral ID Status Reason Start Date Expiration Date Visits Requ ested Visits Authorized [id number] Closed 05/25/2021 05/25/2022 30 30 Encounter Details Date Type Department Care Team Description 07/19/2021 Hospital Encounter Department of Radiation Neal Waddell, Oncology in [place] [address] [facility] [address] [place] [address] [phone] Social History Tobacco Use Types Packs/Day Years [...] or relatives? How often do you attend confucianist or Patient refused 2020 synagogue services? Do you belong to any clubs or No 05/24/2021 organizations such as confucianist groups, unions, fraternal or athletic groups, or [...] tablet by mouth 0 10/16 daily. omega 0-gxc-qcs-fish oil Take by mouth. 0 1,000 mg [...]
--- OUTSIDE RECORDS SUMMARY | 2022-07-16 22:03 | XMS_ITS | Encounter Summary ---
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 [facility] Procedures Prior Auth Rad Tx [place] IMRT SIMPLE [address] [place] [address] Referral ID Status Reason Start Date Expiration Date Visits Requ ested Visits Authorized [id number] Closed 05/25/2021 05/25/2022 30 30 Encounter Details Date Type Department Care Team Description 07/21/2021 Hospital Encounter Department of Radiation Neal Waddell, Oncology in [place] [address] [facility] [address] [place] [address] [phone] Social History Tobacco Use Types Packs/Day Years [...] or relatives? How often do you attend worship or Patient refused 2020 religion services? Do you belong to any clubs or No 05/24/2021 organizations such as worship groups, unions, fraternal or athletic groups, or [...] to sleep or slept in a senior care (including now)? Education Answer Date Recorded What [...] tablet by mouth 0 10/16 daily. omega 2-dob-sfe-fish oil Take by mouth. 0 1,000 mg [...]
--- OUTSIDE RECORDS SUMMARY | 2022-07-16 22:03 | XMS_ITS | Encounter Summary ---
:1965 Author Organization [facility] Address [address] [place] [address] Care Team Providers Name Role Phone Unavailable Primary Care Provider Unavailable Encounter Details Date Type Department Care Team Description 03/28/1993 - 03/29/1993 Hospital Encounter HX RST 031 Social History [...] or relatives? How often do you attend samaritan or Patient refused 2020 quaker services? Do you belong to any clubs or No 05/24/2021 organizations such as samaritan groups, unions, fraternal or athletic groups, or [...] or slept in a long-term (including now)? Sex Assigned at Date Recorded Female 07/26/2021 6:15 AM CDT documented as of this encounter Plan of Treatment Not on filedocumented as of this encounter Visit Diagnoses Not on filedocumented in this encounter
--- OUTSIDE RECORDS SUMMARY | 2022-07-16 22:03 | XMS_ITS | Encounter Summary ---
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 [facility] Region Procedures Initial Rad Onc Treatment Planning CT Simulation [address] [place] [address] Referral ID Status Reason Start Date Expiration Date Visits Requ ested Visits Authorized [id number] Closed 05/25/2021 05/25/2022 1 1 Reason for Visit Radiation Therapy (Routine) - Closed Specialty Diagnoses / Procedures Referred By Contact Refer red To Contact Diagnoses Malignant Neoplasm Of Breast Lower Inner Quadrant Female Right (HCC) Bryant [facility]add[facility].D. [facility] Region Procedures Initial Rad Onc Treatment Planning CT Simulation [address] [place], [place] [address] Referral ID Status Reason Start Date Expiration Date Visits Requ ested Visits Authorized [id number] Closed 05/25/2021 05/25/2022 1 1 Encounter Details Date Type Department Care Team Description 06/23/2021 Hospital Encounter Department of Bryant Waddell Neoplasm Radiation Oncology [place] Kemp Of Breast Lower in [place], [address] [place], [place] Female Right (HCC) [address] [facility] [address] [place], [place] [phone] (Work) [phone] Social History Tobacco Use Types Packs/Day Years [...] you attend worship or Patient refused 2020 cheondoism services? Do [...] tablet by mouth 0 10/16 daily. omega 8-aup-gzv-fish oil Take by mouth. 0 1,000 mg (120 mg-180 mg) capsule UNABLE TO FIND Evening primrose 650 0 mg UNABLE TO FIND Flaxseed oil 1400 mg 0 UNABLE TO FIND Echinacea 800 mg 0 anastrozole (ARIMIDEX) 1 Take 1 mg by mouth 0 mg tablet daily. documented as of this encounter Procedure Notes Lisbet Gómez, RTT - 06/23/2021 1:30 PM CDTAssociated Order(s): Initial Rad Onc Treatment Planning CT Simulation Pre-Procedure Diagnose(s): Malignant Neoplasm Of Breast Lower Inner Quadrant Female Right (HCC) Post-Procedure Diagnose(s): Malignant Neoplasm Of Breast Lower Inner Quadrant Female Right (HCC) Initial Rad Onc Treatment Planning CT Simulation Date/Time: 06/23/2021 1:58 PM Performed by: Bryant Waddell M.D. Authorized by: Bryant Waddell M.D. Simulation was performed under physician supervision based on physician order in preparation for radiation therapy. Physician was immediately available to provide assistance and direction throughout the procedure. Written consent for treatment was completed or confirmed. The patient was appropriately identified and placed in the treatment position using the necessary immobilization to ensure a reproducible treatment position. Reference tee were placed to facilitate marking of isocenter. Area scanned:Chest Contrast used for the simulation procedure: None Patient position:head first supine Custom immobilization: Knee Cushion Motion management: Breath hold scan Bolus: No CT guidance: Following positioning of the patient, a series of slices was obtained to be utilized intreatment planning. CT images were transferred to the [facility] treatment planning system, after a reference isocenter was determined and marked. Segmentation and treatment planning will take place priorto treatment delivery. Patient set up and imaging was appropriate and completed without incident. Mechanical Car Checker use:No documented in this encounter Plan of Treatment Not on filedocumented as of this encounter Procedures Procedure Name Priority Date/Time Associated Comments Diagnosis INITIAL RAD ONC Routine 06/23/2021 1:58 PM Malignant Neoplasm Results for this TREATMENT PLANNING CDT Of Breast Lower proced ure are in CT SIMULATION Inner Quadrant the results Female Right (HCC) section. documented in this encounter Results Initial Rad Onc Treatment Planning CT Simulation (06/23/2021 1:58 PM CDT) Specimen (Source) Anatomical Location Collection Method / Collectio n Time Received Time / Laterality Volume Narrative [facility] - 06/23/2021 1:58 PM CDT Lisbet Gómez, RTT ? 06/23/2021 ??1:59 PM Initial Rad Onc Treatment Planning CT Si mulation Date/Time: 06/23/2021 1:58 PM Performed by: Bryant aWddell M.D. Authorized by: Bryant Waddell M.D. Bryant Waddell M.D. RADIATION ONCOLOGY ORDERABLE S Performing Organization Address City/State/ZIP Code Phon e Number [facility] na documented in this encounter Visit Diagnoses Diagnosis Malignant Neoplasm Of Breast Lower Inner Quadrant Female Right (HCC) documented in this encounter
--- OUTSIDE RECORDS SUMMARY | 2022-07-16 22:03 | XMS_ITS | Encounter Summary ---
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 [facility] Procedures Prior Auth Rad Tx [place] IMRT SIMPLE [address] [place], [place] [phone] Referral ID Status Reason Start Date Expiration Date Visits Requ ested Visits Authorized [id number] Closed 05/25/2021 05/25/2022 30 30 Encounter Details Date Type Department Care Team Description 07/09/2021 Hospital Encounter Department of Radiation Neal Waddell, Oncology in [place] [address] [facility] [address] [place] [phone] Social History Tobacco Use Types Packs/Day Years [...] you attend pentecostalism or Patient refused 2020 bahai services? Do [...] tablet by mouth 0 10/16 daily. omega 9-xjk-wqg-fish oil Take by mouth. 0 1,000 mg [...]
--- OUTSIDE RECORDS SUMMARY | 2022-07-16 22:03 | XMS_ITS | Encounter Summary ---
:1965 Author Organization [facility] Address [address] [place] [address] Care Team Providers Name Role Phone Unavailable Primary Care Provider Unavailable Reason for Visit Radiation Therapy (Routine) - Closed Specialty Diagnoses / Procedures Referred By Contact Refer red To Contact Diagnoses Malignant Neoplasm Of Breast Lower Inner Quadrant Female Right (HCC) Bryant Waddell M.D. [facility] Procedures Prior Auth Rad Tx [place] IMRT SIMPLE [address] [place], [place] [phone] Referral ID Status Reason Start Date Expiration Date Visits Requ ested Visits Authorized [id number] Closed 05/25/2021 05/25/2022 30 30 Encounter Details Date Type Department Care Team Description 07/14/2021 Hospital Encounter Department of Radiation Neal Waddell, Oncology in [place] [address] [facility] [address] [place] [phone] Social History Tobacco Use Types Packs/Day Years [...] or relatives? How often do you attend caodaism or Patient refused 2020 uatsdin services? Do you belong to any clubs or No 05/24/2021 organizations such as caodaism groups, unions, fraternal or athletic groups, or [...] tablet by mouth 0 10/16 daily. omega 7-syn-fpc-fish oil Take by mouth. 0 1,000 mg [...]
--- OUTSIDE RECORDS SUMMARY | 2022-07-16 22:03 | XMS_ITS | Encounter Summary ---
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 [facility] Procedures Prior Auth Rad Tx [place] IMRT SIMPLE [address] [place], [place] [phone] Referral ID Status Reason Start Date Expiration Date Visits Requ ested Visits Authorized [id number] Closed 05/25/2021 05/25/2022 30 30 Encounter Details Date Type Department Care Team Description 07/01/2021 Hospital Encounter Department of Radiation Neal Waddell, Oncology in [place] [address] [facility] [address] [place] [phone] Social History Tobacco Use Types Packs/Day Years [...] you attend hinduism or Patient refused 2020 jainism services? Do you belong to any clubs [...] tablet by mouth 0 10/16 daily. omega 4-icz-oep-fish oil Take by mouth. 0 1,000 mg [...]
--- NOTE | 2022-07-16 22:47 | ED.NURSE ---
prescription for keflex called into [facility] pharmacy 07/16/22.
== END 2022-07-16 22:30 | disposition home or self-care (01) ==
PROVIDERS: Emergency Provider Emergency Medicine Emergency Medical Services; PCP Family Medicine
DX: S82.831A Other fracture of upper and lower end of right fibula, initial encounter for closed fracture (principal); V80.7 Animal-rider or occupant of animal-drawn vehicle injured in collision with other nonmotor vehicles; Y93.52 Activity, horseback riding; Y92.838 Other recreation area as the place of occurrence of the external cause; Y99.8 Other external cause status
CPT/HCPCS: 29515; 73610; 99281; 99283; 99285

== ENCOUNTER 2022-08-01 15:39 | Outpatient (CLI) | payer BC, SELFPAY ==
--- OUTSIDE RECORDS SUMMARY | 2022-08-01 07:30 | XMS_ITS | Encounter Summary ---
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 [facility] Procedures Prior Auth Rad Tx [place] IMRT SIMPLE [address] [place] [address] Referral ID Status Reason Start Date Expiration Date Visits Requ ested Visits Authorized [id number] Closed 05/25/2021 05/25/2022 30 30 Encounter Details Date Type Department Care Team Description 08/02/2021 Hospital Encounter Department of Radiation Neal Waddell, [place] [address] [facility] [address] [place] [phone] Social History Tobacco Use Types Packs/Day Years [...] more drinks on one Never 05/24/2021 occasion? Social Isolation Answer Date Recorded In a typical week, how many times do you More than three brian es a week 05/24/2021 talk on the phone with family, friends, or neighbors? How often do you get together with friends Once a week 05/24/2021 or relatives? How often do you attend oriental orthodox or Patient refused 2020 alevism services? Do [...] place to sleep or slept in a half-way (including now)? Education Answer Date Recorded What is the highest level of school you have completed or 12 th grade 05/24/2021 the highest degree you have received? Sex Assigned at Date Recorded Female 07/26/2021 6:15 AM CDT documented as of this encounter Medications at Time of Discharge Medication Sig Dispensed Refills Start Date End Date anastrozole (ARIMIDEX) 1 Take 1 mg by mouth 0 mg tablet daily. ascorbic acid, vitamin C, Take 500 mg [...] tablet by mouth 0 10/16 daily. omega 8-sgr-agj-fish oil Take by mouth. 0 1,000 mg (120 mg-180 mg) capsule UNABLE TO FIND Evening primrose 650 0 mg UNABLE TO FIND Flaxseed oil 1400 mg 0 UNABLE TO FIND Echinacea 800 mg 0 documented as of this encounter Plan of Treatment Not on filedocumented as of this encounter Visit Diagnoses Not on filedocumented in this encounter
--- OUTSIDE RECORDS SUMMARY | 2022-08-01 07:30 | XMS_ITS | Encounter Summary ---
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 [facility] Procedures Management Visit [address] [place] [address] Referral ID Status Reason Start Date Expiration Date Visits Requ ested Visits Authorized [id number] Closed 05/25/2021 05/25/2022 10 10 Reason for Visit Radiation Therapy (Routine) - Closed Specialty Diagnoses / Procedures Referred By Contact Refer red To Contact Diagnoses Malignant Neoplasm Of Breast Lower Inner Quadrant Female Right (HCC) Bryant Waddell M.D. [facility] Procedures Management Visit [address] [place] [address] Referral ID Status Reason Start Date Expiration Date Visits Requ ested Visits Authorized [id number] Closed 05/25/2021 05/25/2022 10 10 Encounter Details Date Type Department Care Team Description 08/03/2021 Hospital Encounter Department of Bryant Waddell Neoplasm Radiation Oncology Mac Kemp Of Breast Lower in [place], [address] [place], [place] Female Right (HCC) [address] [facility] [address] [place], [place] [phone] (Work) [phone] Social History Tobacco Use Types Packs/Day Years [...] you attend episcopalian or Patient refused 2020 mu-ism services? Do [...] place to sleep or slept in a prison (including now)? Education Answer Date Recorded What [...] tablet by mouth 0 10/16 daily. omega 8-xvj-pfk-fish oil Take by mouth. 0 1,000 mg (120 mg-180 mg) capsule UNABLE TO FIND Evening primrose 650 0 mg UNABLE TO FIND Flaxseed oil 1400 mg 0 UNABLE TO FIND Echinacea 800 mg 0 documented as of this encounter Progress Notes Bryant Waddell M.D. - 08/03/2021 3:21 PM CDT SUBJECTIVE SUPERVISED BY: Dr. Waddell REASON FOR VISIT Evaluation for side effects while receiving radiation treatment for 1. Malignant Neoplasm Of Breast Lower Inner Quadrant Female Right (HCC) HISTORY OF PRESENT ILLNESS Mrs. Shahrzad Solitario is a 55 y.o. 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 She is currently undergoing adjuvant whole breast andlymph node radiotherapy followed by boost to lumpectomy cavity. Treatment Course: 1x R BREAST_LN Plan ID Fractions Dose / Fraction (cGy) Dose Treated (cGy) Dose Planned (cGy) First Treatment Last Treatment Elapsed Days [id number] 200 4800 5000 07/01/2021 08/03/2021 33 Course [...] examined at the treatment machine with the magazine journalist of the therapist, EVERETTE June. Breasts: Folliculitis noted to the right breast and right inframammary fold. Mild to moderate erythema present to breast. Mild darkening of the skin to the right axilla. ASSESSMENT / PLAN #1 Stage IIB (cT2, cN1, cM0, G3, ER+, [place]+, HER2-) invasive ductal carcinoma of the right breast #2 Neoadjuvant chemotherapy with??Adriamycin/Cytoxan for 4 cycles followed by weekly paclitaxel for 12 weeks??completed April 08, 2021 #3??Right breast lumpectomy, right axillary sentinel lymph node biopsy,??and??right axillary dissection on April 29, 2021 with final pathologic staging ypT1c, pN1mi, cM0, G2, ER+, PA+, HER2- #4 Right whole breast and regional [...] Bryant Waddell M.D. 08/03/2021 5:58 PM CDT [facility] [address] [place] [address] documented in this encounter Plan of Treatment [...]
--- OUTSIDE RECORDS SUMMARY | 2022-08-01 07:30 | XMS_ITS | Encounter Summary ---
:1965 Author Organization [facility] Address [address] [place] [address] Care Team Providers Name Role Phone Unavailable Primary Care Provider Unavailable Reason for Referral Radiation Therapy (Routine) - Closed Specialty Diagnoses / Procedures Referred By Contact Refer red To Contact Diagnoses Malignant Neoplasm Of Breast Lower Inner Quadrant Female Right (HCC) Bryant Waddell M.D. [facility] Procedures Management Visit [address] [place] [address] Referral ID Status Reason Start Date Expiration Date Visits Requ ested Visits Authorized [id number] Closed 05/25/2021 05/25/2022 10 10 Reason for Visit Radiation Therapy (Routine) - Closed Specialty Diagnoses / Procedures Referred By Contact Refer red To Contact Diagnoses Malignant Neoplasm Of Breast Lower Inner Quadrant Female Right (HCC) Bryant Waddell M.D. [facility] Procedures Management Visit [address] [place] [address] Referral ID Status Reason Start Date Expiration Date Visits Requ ested Visits Authorized [id number] Closed 05/25/2021 05/25/2022 10 10 Encounter Details Date Type Department Care Team Description 07/21/2021 Hospital Encounter Department of Bryant Waddell Neoplasm Radiation Oncology Mac Kemp Of Breast Lower in [place], [address] [place], [place] Female Right (HCC) [address] [facility] [address] [place], [place] [phone] (Work) [phone] Social History Tobacco Use Types Packs/Day Years [...] or relatives? How often do you attend anabaptist or Patient refused 2020 baptist services? Do you belong to any clubs or No 05/24/2021 organizations such as anabaptist groups, unions, fraternal or athletic groups, or [...] tablet by mouth 0 10/16 daily. omega 1-hsp-rew-fish oil Take by mouth. 0 1,000 mg [...] stage IIB (cT2, cN1, cM0, G3, ER+, [place]+, HER2-)invasive ductal carcinoma of the right breast. She is currently undergoing adjuvant whole breast andlymph node radiotherapy followed by boost to lumpectomy cavity. Treatment Course: 1x R BREAST_LN Plan ID Fractions Dose / Fraction (cGy) Dose Treated (cGy) Dose Planned (cGy) First Treatment Last Treatment Elapsed Days [id number] 200 3000 5000 07/01/2021 07/21/2021 20 Course [...] in her right breast. She continues to demolition worker. PATIENT REPORTED SYMPTOM SCREEN FATIGUE (Scale: [...] examined at the treatment machine with the corduroy cutter operator of the therapist, EVERETTE June. Breasts: The skin appears normal. The right breast is smaller than the left. There is some scarring in the inferior aspect of the breast at the 6 o'clock position at inframammary ridge. I can feel no palpable nodularity. ASSESSMENT / PLAN #1 Stage IIB (cT2, cN1, cM0, G3, ER+, [place]+, HER2-) invasive ductal carcinoma of the right breast #2 Neoadjuvant chemotherapy with??Adriamycin/Cytoxan for 4 cycles followed by weekly paclitaxel for 12 weeks??completed April 08, 2021 #3??Right breast lumpectomy, right axillary sentinel lymph node biopsy,??and??right axillary dissection on April 29, 2021 with final pathologic staging ypT1c, pN1mi, cM0, G2, ER+, [place]+, HER2- #4 Right whole breast and regional [...] Bryant Waddell M.D. 07/21/21 5:27 PM CDT [facility] Radiation Therapy [facility] [address] [place] [address] documented in this encounter Plan of Treatment [...]
--- OUTSIDE RECORDS SUMMARY | 2022-08-01 07:30 | XMS_ITS | Encounter Summary ---
:[address] 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 [facility] Procedures Prior Auth Rad Tx [place] IMRT SIMPLE [address] [place] [address] Referral ID Status Reason Start Date Expiration Date Visits Requ ested Visits Authorized [id number] Closed 05/25/2021 05/25/2022 30 30 Encounter Details Date Type Department Care Team Description 07/20/2021 Hospital Encounter Department of Radiation Neal Waddell, [place] [address] [facility] [address] [place] [phone] Social History Tobacco Use Types Packs/Day Years [...] or relatives? How often do you attend mormon or Patient refused 2020 episcopalian services? Do you belong to any clubs or No 05/24/2021 organizations such as mormon groups, unions, fraternal or athletic groups, or [...] tablet by mouth 0 10/16 daily. omega 7-gik-hpy-fish oil Take by mouth. 0 1,000 mg [...]
--- OUTSIDE RECORDS SUMMARY | 2022-08-01 07:30 | XMS_ITS | Encounter Summary ---
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 [facility] Procedures Prior Auth Rad Tx [place] IMRT SIMPLE [address] [place] [address] Referral ID Status Reason Start Date Expiration Date Visits Requ ested Visits Authorized [id number] Closed 05/25/2021 05/25/2022 30 30 Encounter Details Date Type Department Care Team Description 07/28/2021 Hospital Encounter Department of Radiation Neal Waddell, Oncology in [place] [address] [facility] [address] [place] [phone] Social History Tobacco Use Types Packs/Day Years [...] you attend anabaptist or Patient refused 2020 scientologist services? Do you belong to any clubs [...] or slept in a correction (including now)? Education Answer Date Recorded What [...] tablet by mouth 0 10/16 daily. omega 3-wmr-loz-fish oil Take by mouth. 0 1,000 mg [...]
--- OUTSIDE RECORDS SUMMARY | 2022-08-01 07:30 | XMS_ITS | Encounter Summary ---
:1965 Author Organization [facility] Address [address] [place] [address] Care Team Providers Name Role Phone Unavailable Primary Care Provider Unavailable Encounter Details Date Type Department Care Team Description 08/11/2021 Documentation Department of Radiation Bryant Waddell, [facility] [address] [facility] [address] [place] [address] [phone] (Wo rk) Social History Tobacco Use Types [...] or relatives? How often do you attend scientologist or Patient refused 2020 oriental orthodox services? Do you belong to any clubs or No 05/24/2021 organizations such as scientologist groups, unions, fraternal or athletic groups, or [...] stage IIB (cT2, cN1, cM0, G3, ER+, [place]+, HER2-) invasive ductal carcinoma of the right breast. She is currently undergoing adjuvant whole breast and lymph node radiotherapy followed by boost to lumpectomy cavity. Attending Physician: Bryant Waddell M.D. ([id number]) Treatment Intent: Curative Concomitant Therapy: None Single Plan Treatment Course: 1x R BREAST_LN Plan ID Fractions Dose / Fraction (cGy) Dose Treated (cGy) Dose Planned (cGy) First Treatment Last Treatment Elapsed Days [id number] 200 5000 5000 07/01/2021 08/04/2021 34 [id number] 200 1000 1000 08/05/2021 08/11/2021 6 Treatment [...] Viviana Baldwin R.N., 08/16/2021 2:55 PM CDT [facility] Radiation Therapy Center [address] [place] [address] documented in this encounter Plan of Treatment Not on filedocumented as of this encounter Visit Diagnoses Not on filedocumented in this encounter
--- OUTSIDE RECORDS SUMMARY | 2022-08-01 07:30 | XMS_ITS | Encounter Summary ---
:1965 Author Organization [facility] Address [address] [place] [address] Care Team Providers Name Role Phone Unavailable Primary Care Provider Unavailable Reason for Visit Radiation Therapy (Routine) - Closed Specialty Diagnoses / Procedures Referred By Contact Refer red To Contact Diagnoses Malignant Neoplasm Of Breast Lower Inner Quadrant Female Right (HCC) Bryant Waddell M.D. [facility] Procedures Prior Auth Rad Tx [place] IMRT SIMPLE [address] [place] [address] Referral ID Status Reason Start Date Expiration Date Visits Requ ested Visits Authorized [id number] Closed 05/25/2021 05/25/2022 30 30 Encounter Details Date Type Department Care Team Description 07/23/2021 Hospital Encounter Department of Radiation Neal Waddell, [place] [address] [facility] [address] [place] [phone] Social History Tobacco Use Types Packs/Day Years [...] you attend adventism or Patient refused 2020 scientologist services? Do [...] tablet by mouth 0 10/16 daily. omega 0-mdd-uco-fish oil Take by mouth. 0 1,000 mg [...]
--- OUTSIDE RECORDS SUMMARY | 2022-08-01 07:30 | XMS_ITS | Encounter Summary ---
:1965 Author Organization [facility] Address [address] [place] [address] Care Team Providers Name Role Phone Unavailable Primary Care Provider Unavailable Reason for Referral Radiation Therapy (Routine) - Closed Specialty Diagnoses / Procedures Referred By Contact Refer red To Contact Diagnoses Malignant Neoplasm Of Breast Lower Inner Quadrant Female Right (HCC) Bryant Waddell M.D. [facility] Procedures Management Visit [address] [place] [address] Referral ID Status Reason Start Date Expiration Date Visits Requ ested Visits Authorized [id number] Closed 05/25/2021 05/25/2022 10 10 Reason for Visit Radiation Therapy (Routine) - Closed Specialty Diagnoses / Procedures Referred By Contact Refer red To Contact Diagnoses Malignant Neoplasm Of Breast Lower Inner Quadrant Female Right (HCC) Bryant Waddell M.D. [facility] Procedures Management Visit [address] [place] [address] Referral ID Status Reason Start Date Expiration Date Visits Requ ested Visits Authorized [id number] Closed 05/25/2021 05/25/2022 10 10 Encounter Details Date Type Department Care Team Description 08/10/2021 - Hospital Encounter Department of Lisbeth Waddell t Neoplasm 08/17/2021 Radiation Oncology Bryant Kemp M.D. Of Breast Lower in [place], [address] [place], [place] Female Right (HCC) [address] [facility] [address] [place], [place] [phone] [address] (Work) [phone] Social History Tobacco Use Types Packs/Day Years [...] or relatives? How often do you attend congregation or Patient refused 2020 latter day services? Do you belong to any clubs or No 05/24/2021 organizations such as congregation groups, unions, fraternal or athletic groups, or [...] tablet by mouth 0 10/16 daily. omega 9-csc-nce-fish oil Take by mouth. 0 1,000 mg [...] IIB (cT2, cN1, cM0, G3, ER+, [place]+, HER2-)invasive ductal carcinoma of the right breast. She is currently undergoing adjuvant whole breast andlymph node radiotherapy followed by boost to lumpectomy cavity. Treatment Course: 1x R BREAST_LN Plan ID Fractions Dose / Fraction (cGy) Dose Treated (cGy) Dose Planned (cGy) First Treatment Last Treatment Elapsed Days [id number] 200 5000 5000 07/01/2021 08/04/2021 34 [id number] 939 207 [id number] 08/05/2021 08/10/2021 5 Treatment Site Summary 5800 [...] examined at the treatment machine with the electronic equipment set up operator of the therapist, EVERETTE June. Breasts: Folliculitis noted to the right breast and right inframammary fold. Mild to moderate erythema present to breast. Mild darkening of the skin to the right axilla. ASSESSMENT / PLAN #1 Stage IIB (cT2, cN1, cM0, G3, ER+, [place]+, HER2-) invasive ductal carcinoma of the right breast #2 Neoadjuvant chemotherapy with??Adriamycin/Cytoxan for 4 cycles followed by weekly paclitaxel for 12 weeks??completed April 08, 2021 #3??Right breast lumpectomy, right axillary sentinel lymph node biopsy,??and??right axillary dissection on April 29, 2021 with final pathologic staging ypT1c, pN1mi, cM0, G2, ER+, [place]+, HER2- #4 Right whole breast and regional [...] with radiation treatment as planned. Radiation Oncology [facility] can be contacted at anytime for any [...] Bryant Waddell M.D. 08/17/2021 7:08 PM CDT [facility] [address] [place] [address] documented in this encounter Miscellaneous Notes Addendum [...]
--- OUTSIDE RECORDS SUMMARY | 2022-08-01 07:30 | XMS_ITS ---
:1965 Author Organization [facility] Address [address] [place] [address] Care Team Providers Name Role Phone Unavailable Primary Care Provider Unavailable Active Problems Problem Noted Date Malignant Neoplasm Of Breast Lower Inner Quadrant Fema le Right 05/25/2021 Cancer Staging: Clinical stage from 10/29: Stage IIB (cT2, cN1, cM0, G3, ER+, [place]+, HER2-) - Unsigned Pathologic stage from 04/29/2021: No Stag e Recommended (ypT1c, pN1mi, cM0, G2, ER+, PA+, HER2-) - Unsigned Current Oncology Plans No current plan information found. Past Plans No past plan information found. Radiation Treatments Plan Last Treated Elapsed Days Fractions Prescribed Prescribed Total On Treated Fraction Dose Dose [id number] 08/11/2021 41 5 of 5 200 cGy 1,000 cGy [id number] 08/04/2021 34 25 of 25 200 cGy 5,000 cGy yb Reference Point Last Treated On Elapsed Days Session Dose Total Dos e [id number] 08/11/2021 41 200 cGy 6,000 cGy
--- OUTSIDE RECORDS SUMMARY | 2022-08-01 07:30 | XMS_ITS | Encounter Summary ---
:1965 Author Organization [facility] Address [address] [place] [address] Care Team Providers Name Role Phone Unavailable Primary Care Provider Unavailable Reason for Visit Radiation Therapy (Routine) - Closed Specialty Diagnoses / Procedures Referred By Contact Refer red To Contact Diagnoses Malignant Neoplasm Of Breast Lower Inner Quadrant Female Right (HCC) Bryant Waddell M.D. [facility] Procedures Prior Auth Rad Tx [place] IMRT SIMPLE [address] [place] [address] Referral ID Status Reason Start Date Expiration Date Visits Requ ested Visits Authorized [id number] Closed 05/25/2021 05/25/2022 30 30 Encounter Details Date Type Department Care Team Description 08/11/2021 Hospital Encounter Department of Radiation Neal Waddell, Oncology in [place] [address] [facility] [address] [place] [address] [phone] Social History Tobacco Use Types Packs/Day Years [...] you attend hinduism or Patient refused 2020 baptism services? Do [...] tablet by mouth 0 10/16 daily. omega 4-qtu-jip-fish oil Take by mouth. 0 1,000 mg [...]
--- OUTSIDE RECORDS SUMMARY | 2022-08-01 07:30 | XMS_ITS | Encounter Summary ---
:1965 Author Organization [facility] Address [address] [place] [address] Care Team Providers Name Role Phone Unavailable Primary Care Provider Unavailable Reason for Visit Radiation Therapy (Routine) - Closed Specialty Diagnoses / Procedures Referred By Contact Refer red To Contact Diagnoses Malignant Neoplasm Of Breast Lower Inner Quadrant Female Right (HCC) Bryant Waddell M.D. [facility] Procedures Prior Auth Rad Tx [place] IMRT SIMPLE [address] [place] [address] Referral ID Status Reason Start Date Expiration Date Visits Requ ested Visits Authorized [id number] Closed 05/25/2021 05/25/2022 30 30 Encounter Details Date Type Department Care Team Description 07/21/2021 Hospital Encounter Department of Radiation Neal Waddell, Oncology in [place] [address] [facility] [address] [place] [address] [phone] Social History Tobacco Use Types Packs/Day Years [...] you attend baptist or Patient refused 2020 lutheran services? Do you belong to any clubs [...] tablet by mouth 0 10/16 daily. omega 5-zen-xsr-fish oil Take by mouth. 0 1,000 mg [...]
--- OUTSIDE RECORDS SUMMARY | 2022-08-01 07:30 | XMS_ITS | Encounter Summary ---
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 [facility] Procedures Prior Auth Rad Tx [place] IMRT SIMPLE [address] [place] [address] Referral ID Status Reason Start Date Expiration Date Visits Requ ested Visits Authorized [id number] Closed 05/25/2021 05/25/2022 30 30 Encounter Details Date Type Department Care Team Description 07/16/2021 Hospital Encounter Department of Radiation Neal Waddell, Oncology in [place] [address] [facility] [address] [place] [phone] Social History Tobacco Use Types Packs/Day Years [...] or relatives? How often do you attend spiritism or Patient refused 2020 hoahaoism services? Do you belong to any clubs or No 05/24/2021 organizations such as spiritism groups, unions, fraternal or athletic groups, or [...] tablet by mouth 0 10/16 daily. omega 8-hjz-wbr-fish oil Take by mouth. 0 1,000 mg [...]
--- OUTSIDE RECORDS SUMMARY | 2022-08-01 07:30 | XMS_ITS | Encounter Summary ---
:1965 Author Organization [facility] Address [address] [place] [address] Care Team Providers Name Role Phone Unavailable Primary Care Provider Unavailable Reason for Visit Radiation Therapy (Routine) - Closed Specialty Diagnoses / Procedures Referred By Contact Refer red To Contact Diagnoses Malignant Neoplasm Of Breast Lower Inner Quadrant Female Right (HCC) Bryant Waddell M.D. [facility] Procedures Prior Auth Rad Tx [place] IMRT SIMPLE [address] [place] [address] Referral ID Status Reason Start Date Expiration Date Visits Requ ested Visits Authorized [id number] Closed 05/25/2021 05/25/2022 30 30 Encounter Details Date Type Department Care Team Description 07/19/2021 Hospital Encounter Department of Radiation Neal Waddell, Oncology in [place] [address] [facility] [address] [place] [address] [phone] Social History Tobacco Use Types Packs/Day Years [...] or relatives? How often do you attend judaism or Patient refused 2020 taoist services? Do you belong to any clubs or No 05/24/2021 organizations such as judaism groups, unions, fraternal or athletic groups, or [...] tablet by mouth 0 10/16 daily. omega 2-yqe-xxz-fish oil Take by mouth. 0 1,000 mg [...]
--- OUTSIDE RECORDS SUMMARY | 2022-08-01 07:30 | XMS_ITS | Encounter Summary ---
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 [facility] Procedures Prior Auth Rad Tx [place] IMRT SIMPLE [address] [place] [address] Referral ID Status Reason Start Date Expiration Date Visits Requ ested Visits Authorized [id number] Closed 05/25/2021 05/25/2022 30 30 Encounter Details Date Type Department Care Team Description 07/30/2021 Hospital Encounter Department of Radiation Neal Waddell, Oncology in [place] [address] [facility] [address] [place] [phone] Social History Tobacco Use Types Packs/Day Years [...] or relatives? How often do you attend jainism or Patient refused 2020 zoroastrianism services? Do you belong to any clubs or No 05/24/2021 organizations such as jainism groups, unions, fraternal or athletic groups, or [...] tablet by mouth 0 10/16 daily. omega 9-xlm-iyl-fish oil Take by mouth. 0 1,000 mg [...]
--- OUTSIDE RECORDS SUMMARY | 2022-08-01 07:30 | XMS_ITS | Encounter Summary ---
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 [facility] Procedures Prior Auth Rad Tx [place] IMRT SIMPLE [address] [place] [address] Referral ID Status Reason Start Date Expiration Date Visits Requ ested Visits Authorized [id number] Closed 05/25/2021 05/25/2022 30 30 Encounter Details Date Type Department Care Team Description 07/29/2021 Hospital Encounter Department of Radiation Neal Waddell, Oncology in [place] [address] [facility] [address] [place] [address] [phone] Social History Tobacco Use Types Packs/Day Years [...] you attend samaritan or Patient refused 2020 hindu services? Do [...] tablet by mouth 0 10/16 daily. omega 1-aff-jql-fish oil Take by mouth. 0 1,000 mg [...]
--- OUTSIDE RECORDS SUMMARY | 2022-08-01 07:30 | XMS_ITS | Encounter Summary ---
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 [facility] Procedures Prior Auth Rad Tx [place] IMRT SIMPLE [address] [place] [address] Referral ID Status Reason Start Date Expiration Date Visits Requ ested Visits Authorized [id number] Closed 05/25/2021 05/25/2022 30 30 Encounter Details Date Type Department Care Team Description 08/03/2021 Hospital Encounter Department of Radiation Neal Waddell, Oncology in [place] [address] [facility] [address] [place] [address] [phone] Social History Tobacco Use Types Packs/Day Years [...] or relatives? How often do you attend pentecostal or Patient refused 2020 judaism services? Do you belong to any clubs or No 05/24/2021 organizations such as pentecostal groups, unions, fraternal or athletic groups, or [...] place to sleep or slept in a usp (including now)? Education Answer Date Recorded What [...] tablet by mouth 0 10/16 daily. omega 9-rtt-yoy-fish oil Take by mouth. 0 1,000 mg [...]
--- OUTSIDE RECORDS SUMMARY | 2022-08-01 07:30 | XMS_ITS | Encounter Summary ---
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 [facility] Procedures Prior Auth Rad Tx [place] IMRT SIMPLE [address] [place] [address] Referral ID Status Reason Start Date Expiration Date Visits Requ ested Visits Authorized [id number] Closed 05/25/2021 05/25/2022 30 30 Encounter Details Date Type Department Care Team Description 08/09/2021 Hospital Encounter Department of Radiation Neal Waddell, Oncology in [place] [address] [facility] [address] [place] [address] [phone] Social History Tobacco Use Types Packs/Day Years [...] you attend moravian or Patient refused 2020 christianity services? Do [...] tablet by mouth 0 10/16 daily. omega 7-vuu-sls-fish oil Take by mouth. 0 1,000 mg [...]
--- OUTSIDE RECORDS SUMMARY | 2022-08-01 07:30 | XMS_ITS | Encounter Summary ---
:1965 Author Organization [facility] Address [address] [place] [address] Care Team Providers Name Role Phone Unavailable Primary Care Provider Unavailable Reason for Visit Radiation Therapy (Routine) - Closed Specialty Diagnoses / Procedures Referred By Contact Refer red To Contact Diagnoses Malignant Neoplasm Of Breast Lower Inner Quadrant Female Right (HCC) Bryant Waddell M.D. [facility] Procedures Prior Auth Rad Tx [place] IMRT SIMPLE [address] [place] [address] Referral ID Status Reason Start Date Expiration Date Visits Requ ested Visits Authorized [id number] Closed 05/25/2021 05/25/2022 30 30 Encounter Details Date Type Department Care Team Description 07/26/2021 Hospital Encounter Department of Radiation Neal Waddell, Oncology in [place] [address] [facility] [address] [place] [phone] Social History Tobacco Use Types Packs/Day Years [...] you attend sikh or Patient refused 2020 orthodox services? Do you belong to any [...] tablet by mouth 0 10/16 daily. omega 3-zlm-hve-fish oil Take by mouth. 0 1,000 mg [...]
--- OUTSIDE RECORDS SUMMARY | 2022-08-01 07:30 | XMS_ITS | Encounter Summary ---
:1965 Author Organization [facility] Address [address] [place] [address] Care Team Providers Name Role Phone Unavailable Primary Care Provider Unavailable Reason for Visit Radiation Therapy (Routine) - Closed Specialty Diagnoses / Procedures Referred By Contact Refer red To Contact Diagnoses Malignant Neoplasm Of Breast Lower Inner Quadrant Female Right (HCC) Bryant Waddell M.D. [facility] Procedures Prior Auth Rad Tx [place] IMRT SIMPLE [address] [place] [address] Referral ID Status Reason Start Date Expiration Date Visits Requ ested Visits Authorized [id number] Closed 05/25/2021 05/25/2022 30 30 Encounter Details Date Type Department Care Team Description 08/05/2021 Hospital Encounter Department of Radiation Neal Waddell, Oncology in [place] [address] [facility] [address] [place] [address] [phone] Social History Tobacco Use Types Packs/Day Years [...] you attend buddhist or Patient refused 2020 yazidism services? Do [...] place to sleep or slept in a intermediate (including now)? Education Answer Date Recorded What [...] tablet by mouth 0 10/16 daily. omega 3-tzb-eqj-fish oil Take by mouth. 0 1,000 mg [...]
--- OUTSIDE RECORDS SUMMARY | 2022-08-01 07:30 | XMS_ITS | Clinical Summary ---
:1965 Author Organization [facility] Address [address] [place] [address] Care Team Providers Name Role Phone Unavailable Primary Care Provider Unavailable Source Comments Patient records contain information from all sites at [facility]. For routine questions regarding patient records, call [phone] during business hours, M-F 8:00 AM - 5:00 PM Central Time. Record requests for emergency care only can be directed to [phone] at any time.[facility] Allergies Active Allergy Reactions Severity Noted [...] by 0 10/30/2008 Active mouth daily. omega 5-ity-kzy-fish Take by mouth. 0 Active oil 1,000 [...] Stage IIB (cT2, cN1, cM0, G3, ER+, RI+, HER2-) - Unsigned Pathologic stage from 04/29/2021: No Stag e Recommended (ypT1c, pN1mi, cM0, G2, ER+, RI+, HER2-) - Unsigned Immunizations Name Administration Dates [...] or relatives? How often do you attend shinto or Patient refused 2020 jewish services? Do you belong to any clubs or No 05/24/2021 organizations such as shinto groups, unions, fraternal or athletic groups, or [...] Effective Phone Address T ype Group Dates [facility] [id number] 2018-[place] [phone] [address] [employer] [address] [place] [address]
--- OUTSIDE RECORDS SUMMARY | 2022-08-01 07:30 | XMS_ITS | Encounter Summary ---
:1965 Author Organization [facility] Address [address] [place] [address] Care Team Providers Name Role Phone Unavailable Primary Care Provider Unavailable Reason for Visit Radiation Therapy (Routine) - Closed Specialty Diagnoses / Procedures Referred By Contact Refer red To Contact Diagnoses Malignant Neoplasm Of Breast Lower Inner Quadrant Female Right (HCC) Bryant Waddell M.D. [facility] Procedures Prior Auth Rad Tx [place] IMRT SIMPLE [address] [place] [address] Referral ID Status Reason Start Date Expiration Date Visits Requ ested Visits Authorized [id number] Closed 05/25/2021 05/25/2022 30 30 Encounter Details Date Type Department Care Team Description 08/06/2021 Hospital Encounter Department of Radiation Neal Waddell, Oncology in [place] [address] [facility] [address] [place] [address] [phone] Social History Tobacco Use Types Packs/Day Years [...] you attend worship or Patient refused 2020 hinduism services? Do you belong to any clubs [...] tablet by mouth 0 10/16 daily. omega 7-top-jzd-fish oil Take by mouth. 0 1,000 mg [...]
--- OUTSIDE RECORDS SUMMARY | 2022-08-01 07:30 | XMS_ITS | Encounter Summary ---
:1965 Author Organization [facility] Address [address] [place] [address] Care Team Providers Name Role Phone Unavailable Primary Care Provider Unavailable Reason for Visit Radiation Therapy (Routine) - Closed Specialty Diagnoses / Procedures Referred By Contact Refer red To Contact Diagnoses Malignant Neoplasm Of Breast Lower Inner Quadrant Female Right (HCC) Bryant Waddell M.D. [facility] Procedures Prior Auth Rad Tx [place] IMRT SIMPLE [address] [place] [address] Referral ID Status Reason Start Date Expiration Date Visits Requ ested Visits Authorized [id number] Closed 05/25/2021 05/25/2022 30 30 Encounter Details Date Type Department Care Team Description 07/27/2021 Hospital Encounter Department of Radiation Neal Waddell, Oncology in [place] [address] [facility] [address] [place] [address] [phone] Social History Tobacco Use Types Packs/Day Years [...] or relatives? How often do you attend christian or Patient refused 2020 druze services? Do you belong to any clubs or No 05/24/2021 organizations such as christian groups, unions, fraternal or athletic groups, or [...] tablet by mouth 0 10/16 daily. omega 3-kvz-qfo-fish oil Take by mouth. 0 1,000 mg [...]
--- OUTSIDE RECORDS SUMMARY | 2022-08-01 07:30 | XMS_ITS | Encounter Summary ---
:1965 Author Organization [facility] Address [address] [place] [address] Care Team Providers Name Role Phone Unavailable Primary Care Provider Unavailable Reason for Visit Radiation Therapy (Routine) - Closed Specialty Diagnoses / Procedures Referred By Contact Refer red To Contact Diagnoses Malignant Neoplasm Of Breast Lower Inner Quadrant Female Right (HCC) Bryant Waddell M.D. [facility] Procedures Prior Auth Rad Tx [place] IMRT SIMPLE [address] [place] [address] Referral ID Status Reason Start Date Expiration Date Visits Requ ested Visits Authorized [id number] Closed 05/25/2021 05/25/2022 30 30 Encounter Details Date Type Department Care Team Description 08/04/2021 Hospital Encounter Department of Radiation Neal Waddell, Oncology in [place] [address] [facility] [address] [place] [address] [phone] Social History Tobacco Use Types Packs/Day Years [...] or relatives? How often do you attend druze or Patient refused 2020 sikh services? Do you belong to any clubs or No 05/24/2021 organizations such as druze groups, unions, fraternal or athletic groups, or [...] tablet by mouth 0 10/16 daily. omega 4-gxr-hlb-fish oil Take by mouth. 0 1,000 mg [...]
--- OUTSIDE RECORDS SUMMARY | 2022-08-01 07:30 | XMS_ITS | Encounter Summary ---
:1965 Author Organization [facility] Address [address] [place] [address] Care Team Providers Name Role Phone Unavailable Primary Care Provider Unavailable Reason for Visit Radiation Therapy (Routine) - Closed Specialty Diagnoses / Procedures Referred By Contact Refer red To Contact Diagnoses Malignant Neoplasm Of Breast Lower Inner Quadrant Female Right (HCC) Bryant Waddell M.D. [facility] Procedures Prior Auth Rad Tx [place] IMRT SIMPLE [address] [place] [address] Referral ID Status Reason Start Date Expiration Date Visits Requ ested Visits Authorized [id number] Closed 05/25/2021 05/25/2022 30 30 Encounter Details Date Type Department Care Team Description 07/22/2021 Hospital Encounter Department of Radiation Neal Waddell, Oncology in [place] [address] [facility] [address] [place] [address] [phone] Social History Tobacco Use Types Packs/Day Years [...] you attend spiritism or Patient refused 2020 jewish services? Do [...] tablet by mouth 0 10/16 daily. omega 4-dza-lla-fish oil Take by mouth. 0 1,000 mg [...]
--- OUTSIDE RECORDS SUMMARY | 2022-08-01 07:30 | XMS_ITS | Encounter Summary ---
:1965 Author Organization [facility] Address [address] [place] [address] Care Team Providers Name Role Phone Unavailable Primary Care Provider Unavailable Reason for Referral Radiation Therapy (Routine) - Closed Specialty Diagnoses / Procedures Referred By Contact Refer red To Contact Diagnoses Malignant Neoplasm Of Breast Lower Inner Quadrant Female Right (HCC) Bryant Waddell M.D. [facility] Procedures Management Visit [address] [place] [address] Referral ID Status Reason Start Date Expiration Date Visits Requ ested Visits Authorized [id number] Closed 05/25/2021 05/25/2022 10 10 Reason for Visit Radiation Therapy (Routine) - Closed Specialty Diagnoses / Procedures Referred By Contact Refer red To Contact Diagnoses Malignant Neoplasm Of Breast Lower Inner Quadrant Female Right (HCC) Bryant Waddell M.D. [facility] Procedures Management Visit [address] [place] [address] Referral ID Status Reason Start Date Expiration Date Visits Requ ested Visits Authorized [id number] Closed 05/25/2021 05/25/2022 10 10 Encounter Details Date Type Department Care Team Description 07/27/2021 Hospital Encounter Department of Teresa Lawrence Neoplasm Radiation Oncology Mac Coreas Of Breast Lower in [place], [address] [place], [place] Female Right (HCC) [address] [facility] [address] [place], [place] [phone] (Work) [phone] Social History Tobacco Use Types Packs/Day Years [...] you attend catholic or Patient refused 2020 jain services? Do you belong to any clubs [...] place to sleep or slept in a custodial (including now)? Education Answer Date Recorded What [...] tablet by mouth 0 10/16 daily. omega 0-rmt-zuz-fish oil Take by mouth. 0 1,000 mg [...] (cGy) First Treatment Last Treatment Elapsed Days [id number] 200 3800 5000 07/01/2021 07/27/2021 26 F26 [...] Stage IIB (cT2, cN1, cM0, G3, ER+, SD+, HER2-) invasive ductal carcinoma of the right breast #2 Neoadjuvant chemotherapy with??Adriamycin/Cytoxan for 4 cycles followed by weekly paclitaxel for 12 weeks??completed April 08, 2021 #3??Right breast lumpectomy, right axillary sentinel lymph node biopsy,??and??right axillary dissection on April 29, 2021 with final pathologic staging ypT1c, pN1mi, cM0, G2, ER+, SD+, HER2- #4??Right whole breast and regional lymph [...]
--- OUTSIDE RECORDS SUMMARY | 2022-08-01 07:30 | XMS_ITS | Encounter Summary ---
:1965 Author Organization [facility] Address [address] [place] [address] Care Team Providers Name Role Phone Unavailable Primary Care Provider Unavailable Reason for Visit Radiation Therapy (Routine) - Closed Specialty Diagnoses / Procedures Referred By Contact Refer red To Contact Diagnoses Malignant Neoplasm Of Breast Lower Inner Quadrant Female Right (HCC) Bryant Waddell M.D. [facility] Procedures Prior Auth Rad Tx [place] IMRT SIMPLE [address] [place] [address] Referral ID Status Reason Start Date Expiration Date Visits Requ ested Visits Authorized [id number] Closed 05/25/2021 05/25/2022 30 30 Encounter Details Date Type Department Care Team Description 08/10/2021 Hospital Encounter Department of Radiation Neal Waddell, [place]cology [place] [address] [facility] [address] [place] [phone] Social History Tobacco Use Types Packs/Day Years [...] you attend presybeterian or Patient refused 2020 advent services? Do you belong to any clubs [...] tablet by mouth 0 10/16 daily. omega 3-zay-sli-fish oil Take by mouth. 0 1,000 mg [...]
--- OUTSIDE RECORDS SUMMARY | 2022-08-01 07:31 | XMS_ITS | Encounter Summary ---
:1965 Author Organization [facility] Address [address] [place] [address] Care Team Providers Name Role Phone Unavailable Primary Care Provider Unavailable Reason for Referral Radiation Therapy (Routine) - Closed Specialty Diagnoses / Procedures Referred By Contact Refer red To Contact Diagnoses Malignant Neoplasm Of Breast Lower Inner Quadrant Female Right (HCC) Bryant Waddell M.D. [facility] Procedures Management Visit [address] [place] [address] Referral ID Status Reason Start Date Expiration Date Visits Requ ested Visits Authorized [id number] Closed 05/25/2021 05/25/2022 10 10 Reason for Visit Radiation Therapy (Routine) - Closed Specialty Diagnoses / Procedures Referred By Contact Refer red To Contact Diagnoses Malignant Neoplasm Of Breast Lower Inner Quadrant Female Right (HCC) Bryant Waddell M.D. [facility] Procedures Management Visit [address] [place] [address] Referral ID Status Reason Start Date Expiration Date Visits Requ ested Visits Authorized [id number] Closed 05/25/2021 05/25/2022 10 10 Encounter Details Date Type Department Care Team Description 07/13/2021 Hospital Encounter Department of Teresa Lawrence Neoplasm Radiation Oncology Mac Coreas Of Breast Lower in [place], [address] [place], [place] Female Right (HCC) [address] [facility] [address] [place], [place] [phone] (Work) [phone] Social History Tobacco Use Types Packs/Day Years [...] you attend buddhist or Patient refused 2020 mormon services? Do [...] tablet by mouth 0 10/16 daily. omega 9-sis-qna-fish oil Take by mouth. 0 1,000 mg (120 mg-180 mg) capsule UNABLE TO FIND Evening primrose 650 0 mg UNABLE TO FIND Flaxseed oil 1400 mg 0 UNABLE TO FIND Echinacea 800 mg 0 documented as of this encounter Progress Notes Teresa Lawrenec M.D. - 07/13/2021 3:15 PM CDT Diagnosis: Right breast cancer Radiation Treatment Progress Summary Treatment Course: 1x R BREAST_LN Plan ID Fractions Dose / Fraction (cGy) Dose Treated (cGy) Dose Planned (cGy) First Treatment Last Treatment Elapsed Days [id number] 200 1800 5000 07/01/2021 07/13/2021 12 F36 RBreast Boost 0 250 1000 Course Summary 07/01/2021 07/13/2021 12 [...] ypT1c, pN1mi, cM0, G2, ER+, OR+, HER2- #4 Right whole breast and regional [...]
--- OUTSIDE RECORDS SUMMARY | 2022-08-01 07:31 | XMS_ITS | Encounter Summary ---
:1965 Author Organization [facility] Address [address] [place] [address] Care Team Providers Name Role Phone Unavailable Primary Care Provider Unavailable Reason for Visit Radiation Therapy (Routine) - Closed Specialty Diagnoses / Procedures Referred By Contact Refer red To Contact Diagnoses Malignant Neoplasm Of Breast Lower Inner Quadrant Female Right (HCC) Bryant Waddell M.D. [facility] Procedures Prior Auth Rad Tx [place] IMRT SIMPLE [address] [place] [address] Referral ID Status Reason Start Date Expiration Date Visits Requ ested Visits Authorized [id number] Closed 05/25/2021 05/25/2022 30 30 Encounter Details Date Type Department Care Team Description 07/02/2021 Hospital Encounter Department of Radiation Neal Waddell, [place] [address] [facility] [address] [place] [phone] Social History Tobacco Use Types Packs/Day Years [...] or relatives? How often do you attend yazidism or Patient refused 2020 sikh services? Do you belong to any clubs or No 05/24/2021 organizations such as yazidism groups, unions, fraternal or athletic groups, or [...] tablet by mouth 0 10/16 daily. omega 2-qyi-sgy-fish oil Take by mouth. 0 1,000 mg [...]
--- OUTSIDE RECORDS SUMMARY | 2022-08-01 07:31 | XMS_ITS | Encounter Summary ---
:1965 Author Organization [facility] Address [address] [place] [address] Care Team Providers Name Role Phone Unavailable Primary Care Provider Unavailable Reason for Referral Specialty Diagnoses / Procedures Referred By Contact Refer red To Contact Gloria Stapleton P.A.-C ., M.S. [facility] Region [address] [place] [phone] Referral ID Status Reason Start Date Expiration Date Visits Requ ested Visits Authorized Encounter Details Date Type Department Care Team Description 07/05/2021 Hospital Encounter Department of Miki Waddell M.D. [address] [place] [phone] Malignant Neoplasm Radiation Oncology Shanika Hsu, [place] [address] [place] [phone] Of Breast Lower in [facility] Female Right (HCC) [address] [place] [address] Social History Tobacco Use Types [...] you attend taoist or Patient refused 2020 yazdanism services? Do [...] tablet by mouth 0 10/16 daily. omega 2-qtk-ucd-fish oil Take by mouth. 0 1,000 mg [...]
--- OUTSIDE RECORDS SUMMARY | 2022-08-01 07:31 | XMS_ITS | Encounter Summary ---
:1965 Author Organization [facility] Address [address] [place] [address] Care Team Providers Name Role Phone Unavailable [...] or relatives? How often do you attend muslim or Patient refused 2020 church services? Do you belong to any clubs or No 05/24/2021 organizations such as muslim groups, unions, fraternal or athletic groups, or [...] or slept in a longterm (including now)? Sex Assigned at Date Recorded Female 07/26/2021 6:15 AM CDT documented as of this encounter Plan of Treatment Not on filedocumented as of this encounter Visit Diagnoses Not on filedocumented in this encounter
--- OUTSIDE RECORDS SUMMARY | 2022-08-01 07:31 | XMS_ITS | Encounter Summary ---
:1965 Author Organization [facility] Address [address] [place] [address] Care Team Providers Name Role Phone Unavailable Primary Care Provider Unavailable Encounter Details Date Type Department Care Team Description 06/25/2021 Orders Only [facility] PCP TH Sa nevin Muro M.D. [address] [place], [place] [phone] (Wo rk) Social History [...] or relatives? How often do you attend restoration or Patient refused 2020 christianity services? Do you belong to any clubs or No 05/24/2021 organizations such as restoration groups, unions, fraternal or athletic groups, or [...]
--- OUTSIDE RECORDS SUMMARY | 2022-08-01 07:31 | XMS_ITS | Encounter Summary ---
:1965 Author Organization [facility] Address [address] [place] [address] Care Team Providers Name Role Phone Unavailable Primary Care Provider Unavailable Reason for Visit Reason Onset Date Comments Outpatient COVID-19 Testing 09/04/2020 Encounter Details Date Type Department Care Team Description 09/04/2020 External Outreach Department of Steven Parks Infect ion Upper Internal Medicine in [place] Respiratory (Primary [place], [place] [address]) [address] [place] [phone] Social History Tobacco Use Types Packs/Day Years [...] or relatives? How often do you attend episcopal or Patient refused 2020 zoroastrianism services? Do you belong to any clubs or No 05/24/2021 organizations such as episcopal groups, unions, fraternal or athletic groups, or [...] place to sleep or slept in a group home (including now)? Sex Assigned at Date Recorded Female 07/26/2021 6:15 AM CDT documented as of this encounter Progress Notes Rose Marie Mcgowan R.N. - 09/04/2020 1:48 PM CST Encounter created for the drive-through COVID-19 testing. E CUTTER documented in this encounter Miscellaneous Notes Result Encounter Note - Mohit Jaramillo M.D. - 09/05/2020 6:08 PM GRAPE CUTTER PCR positive for SARS-CoV-2, the virus that causes COVID-19 infection. Based on chart review patientdoes not have high risk factors for complications. Will not be enrolled in CFCT. CFCT MAA, please send CFCTTraceWorksETTER and portal message (if patient has the portal). Please also alert the patient's [place] PCP (if applicable). You recently tested positive [...] the ok to do so by a [place] regional sales representative. Please continue to monitor your symptoms. [...] be adjusted based on the clinical course. Https://www.youtube.com/watch?time_continue=6&v=[email or web address]&feature=emb_logo Testing prior to release from isolation is NOT recommended by [facility] or [facility] Infection Prevention and Control for clinical purposes except in extremely rare cases. The patient was also advised to follow final recommendations as per local public health department/occupational health if relevant. Please contact your employer's occupational health division to notify them of positive test If the patient and/or their employer have questions about return to work best practices, they shouldcontact [facility] Occupational Medicine at [email or web address]. The patient should receive approval from their [...] call ahead to minimize wait times. The [facility] COVID Triage Line can bereached at [phone]. COVID-19 is a notifiable disease and you will be contacted by public health for contact tracing. Please review the links below for additional education. [facility] recommendations on isolation https://www.[facility].org/patient-education?VID=VID-43871573 Additional information about COVID-19 https://www.cdc.gov/coronavirus/2019-ncov/ Cognitive Behavior Therapy-Insomnia to help improve sleep https://doctors medical centercontent.morris.edu/PatientEducation/PatientLearning/index.html#/ Building Resiliency During the COVID-19 Pandemic https://doctors medical centercontent.[facility]ris.[facility]/2020/PatientEducation/content/index.html#/ Consider donating convalescent plasma once you have recovered from your illness (14 days after symptoms have resolved) Survey to assess eligibility: https://redcap2.[facility]/redcap/surveys/?s=5ADS2KDB1T and/ or contact wagner [email or web address] More information is available at https://www.uscovidplasma.org/ https://ccpp19.org/ https://covidplasma.org/ COVID-19 Frontline Care Team [facility] E CUTTER documented in this encounter Plan of Treatment Not on filedocumented as of this encounter Procedures Procedure Name Priority Date/Time Associated Diagnosis Comme nts SARS CORONAVIRUS-2 Routine 09/04/2020 3:06 PM Infection Upper Results for this RNA, V GRAPE CUTTER Respiratory procedure are i n the results section. documented in this encounter Results (ABNORMAL) SARS Coronavirus-2 RNA, V Symptomatic (09/04/2020 3:06 PM GRAPE CUTTER) [facility] Method Time Signature SARS-CoV-2 Swab, 09/05/2020 MKTO Specimen Nasopharynx 6:02 PM GRAPE CUTTER Source SARS CoV-2 Detected (C) Undetected 09/05/2020 MKTO RNA, TMA 6:02 PM GRAPE CUTTER Comment: SARS-CoV-2 RNA present. ----ADDITIONAL INFORMATION---- This test is performed using the Aptima SARS-CoV-2 assay ([employer] which has received Emergency Use Authori zation (EUA) by the U.S. Food and Drug Administration. Fact sheets for this Emergency Use Autho rization (EUA) assay can be found at the following links: For Healthcare Providers: https://www.fd a.gov/media/387180/download For Patients: https://www.fda.gov/media/ 279161/download Specimen Anatomical Collection Method Collection Time Receive d Time (Source) Location / / Volume Laterality Varies 09/04/2020 3:06 PM 0 8:12 (Nasopharynx) GRAPE CUTTER AM GRAPE CUTTER Steven Parks D.O. LAB MICROBIOLOGY - GENERAL O RDERABLES Performing Organization Address City/State/ZIP Code Phon e Number [facility] [place] [address] [place] [address] System in [place] [address] [facility] documented in this encounter Visit Diagnoses Diagnosis Infection Upper Respiratory - Primary documented in this encounter Additional Health Concerns Infection Onset Date Last Indicated Resolved Time COVID19 Pending 09/04/2020 09/04/2020 09/04/2020 3:04 PM GRAPE CUTTER documented as of this encounter
--- OUTSIDE RECORDS SUMMARY | 2022-08-01 07:31 | XMS_ITS | Encounter Summary ---
:[address] [facility] Address [address] [place] [address] Care Team Providers Name Role Phone Unavailable Primary Care Provider Unavailable Reason for Referral Specialty Diagnoses / Procedures Referred By Contact Refer red To Contact Gloria Stapleton P.A.-C ., M.S. [facility] Region [address] [place] [address] Referral ID Status Reason Start Date Expiration Date Visits Requ ested Visits Authorized Radiation Therapy (Routine) - Closed Specialty Diagnoses / Procedures Referred By Contact Refer red To Contact Diagnoses Malignant Neoplasm Of Breast Lower Inner Quadrant Female Right (HCC) Bryant Waddell M.D. 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 [facility] Region Procedures Initial Rad Onc Treatment Planning CT Simulation [address] [place] [address] Referral ID Status Reason Start Date Expiration Date Visits Requ ested Visits Authorized [id number] Closed 05/25/2021 05/25/2022 1 1 Encounter Details Date Type Department Care Team Description 05/25/2021 Orders Only Department of Radiation Gloria Stapleton Mal ignant Neoplasm Of Oncology in [place], PTrista, M.S. Breast Lower [facility] [address] [facility] Quadrant Female Right [address] [place], [place] (HCC) (Primary Dx) [place] [phone] Social History Tobacco Use Types Packs/Day Years [...] you attend sabianist or Patient refused 2020 sikhism services? Do you belong to any clubs [...] place to sleep or slept in a mcfp (including now)? Education Answer Date Recorded What [...] Organization Address City/State/ZIP Code Phon e Number 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
--- OUTSIDE RECORDS SUMMARY | 2022-08-01 07:31 | XMS_ITS | Encounter Summary ---
:1965 Author Organization [facility] Address [address] [place] [address] Care Team Providers Name Role Phone Unavailable [...] or relatives? How often do you attend lutheran or Patient refused 2020 quaker services? Do you belong to any clubs or No 05/24/2021 organizations such as lutheran groups, unions, fraternal or athletic groups, or [...] or slept in a halfway (including now)? Sex Assigned at Date Recorded Female 07/26/2021 6:15 AM CDT documented as of this encounter Plan of Treatment Not on filedocumented as of this encounter Visit Diagnoses Not on filedocumented in this encounter
--- OUTSIDE RECORDS SUMMARY | 2022-08-01 07:31 | XMS_ITS | Encounter Summary ---
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 [facility] Procedures Management Visit [address] [place] [address] Referral ID Status Reason Start Date Expiration Date Visits Requ ested Visits Authorized [id number] Closed 05/25/2021 05/25/2022 10 10 Encounter Details Date Type Department Care Team Description 07/07/2021 Hospital Encounter Department of Bryant Waddell Neoplasm Radiation Oncology Mac Kemp Of Breast Lower in [place], [address] [place], [place] Female Right (HCC) [address] [facility] [address] [place], [place] [phone] (Work) [phone] Social History Tobacco Use Types Packs/Day Years [...] you attend voodoo or Patient refused 2020 roman catholic services? [...] tablet by mouth 0 10/16 daily. omega 9-fvr-uwm-fish oil Take by mouth. 0 1,000 mg [...] stage IIB (cT2, cN1, cM0, G3, ER+, CA+, HER2-)invasive ductal carcinoma of the right breast. She is currently undergoing adjuvant whole breast andlymph node radiotherapy followed by boost to lumpectomy cavity. Treatment Course: 1x R BREAST_LN Plan ID Fractions Dose / Fraction (cGy) Dose Treated (cGy) Dose Planned (cGy) First Treatment Last Treatment Elapsed Days [id number] 200 1000 5000 07/01/2021 07/07/2021 6 Course [...] examined at the treatment machine with the gage maker of the therapists, EVERETTE Pike. Skin: Not examined. ASSESSMENT / PLAN #1 Stage IIB (cT2, cN1, cM0, G3, ER+, CA+, HER2-) invasive ductal carcinoma of the right breast #2 Neoadjuvant chemotherapy with??Adriamycin/Cytoxan for 4 cycles followed by weekly paclitaxel for 12 weeks??completed April 08, 2021 #3??Right breast lumpectomy, right axillary sentinel lymph node biopsy,??and??right axillary dissection on April 29, 2021 with final pathologic staging ypT1c, pN1mi, cM0, G2, ER+, CA+, HER2- #4 Right whole breast and regional lymph node radiotherapy followed by boost to the lumpectomy cavity initiated on July 01, 2021; anticipated completion on August 11, 2021 The patient is tolerating radiation treatment well. She will continue with radiation treatment as planned. Signed by: Bryant Waddell M.D. 07/07/21 2:12 PM CDT [facility] [address] [place] [phone] documented in this encounter Plan of Treatment [...]
--- OUTSIDE RECORDS SUMMARY | 2022-08-01 07:31 | XMS_ITS | Encounter Summary ---
:1965 Author Organization [facility] Address [address] [place] [address] Care Team Providers Name Role Phone Unavailable Primary Care Provider Unavailable Reason for Visit Radiation Therapy (Routine) - Closed Specialty Diagnoses / Procedures Referred By Contact Refer red To Contact Diagnoses Malignant Neoplasm Of Breast Lower Inner Quadrant Female Right (HCC) Bryant Waddell M.D. [facility] Procedures Prior Auth Rad Tx [place] IMRT SIMPLE [address] [place] [address] Referral ID Status Reason Start Date Expiration Date Visits Requ ested Visits Authorized [id number] Closed 05/25/2021 05/25/2022 30 30 Encounter Details Date Type Department Care Team Description 07/12/2021 Hospital Encounter Department of Radiation Neal Waddell, [place]cology [place] [address] [facility] [address] [place] [phone] Social History Tobacco Use Types Packs/Day Years [...] you attend mormonism or Patient refused 2020 mu-ism services? Do [...] tablet by mouth 0 10/16 daily. omega 3-plt-czp-fish oil Take by mouth. 0 1,000 mg [...]
--- OUTSIDE RECORDS SUMMARY | 2022-08-01 07:31 | XMS_ITS | Encounter Summary ---
:1965 Author Organization [facility] Address [address] [place] [address] Care Team Providers Name Role Phone Unavailable Primary Care Provider Unavailable Reason for Visit Reason Onset Date Comments Outpatient COVID-19 Testing 07/29/2020 Encounter Details Date Type Department Care Team Description 07/29/2020 External Outreach Department of Steven Parks Infect ion Upper Internal Medicine in J, D.O. Respiratory (Primary [place], [place] [address]) [address] [place] [phone] Social History Tobacco Use Types Packs/Day Years [...] or relatives? How often do you attend orthodox or Patient refused 2020 episcopalian services? Do you belong to any clubs or No 05/24/2021 organizations such as orthodox groups, unions, fraternal or athletic groups, [...] or slept in a usp (including now)? Sex Assigned at Date Recorded [...] RNA, V Symptomatic (07/29/2020 3:25 PM CDT) [facility] Method Time Signature SARS-CoV-2 Swab, 07/30/2020 [...] is performed using the Aptima SARS-CoV-2 assay ([facility] which has received Emergency Use Authori zation (EUA) by the U.S. Food and Drug Administration. Fact sheets for this Emergency Use Autho rization (EUA) assay can be found at the following links: For Healthcare Providers: https://www.fd a.gov/media/040749/download For Patients: https://www.fda.gov/media/ 729315/download Specimen Anatomical Collection Method Collection Time Receive d Time (Source) Location / / Volume Laterality Varies 07/29/2020 3:25 PM 0 7:17 (Nasopharynx) CDT PM CDT Steven Parks D.O. LAB MICROBIOLOGY - GENERAL O RDERABLES Performing Organization Address City/State/ZIP Code Phon e Number [facility]- [address] [place] [id number] [place] [address] [address] documented in this encounter Visit Diagnoses Diagnosis Infection Upper Respiratory - Primary documented in this encounter Additional Health Concerns Infection Onset Date Last Indicated Resolved Time COVID19 Pending 07/29/2020 07/29/2020 07/30/2020 3:48 AM CDT documented as of this encounter
--- OUTSIDE RECORDS SUMMARY | 2022-08-01 07:31 | XMS_ITS | Encounter Summary ---
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 [facility] Procedures Prior Auth Rad Tx [place] IMRT SIMPLE [address] [place] [address] Referral ID Status Reason Start Date Expiration Date Visits Requ ested Visits Authorized [id number] Closed 05/25/2021 05/25/2022 30 30 Encounter Details Date Type Department Care Team Description 07/05/2021 Hospital Encounter Department of Radiation Neal Waddell, Oncology in [place] [address] [facility] [address] [place] [phone] Social History Tobacco Use Types Packs/Day Years [...] you attend confucianist or Patient refused 2020 congregational services? Do [...] tablet by mouth 0 10/16 daily. omega 8-fjt-bus-fish oil Take by mouth. 0 1,000 mg [...]
--- OUTSIDE RECORDS SUMMARY | 2022-08-01 07:31 | XMS_ITS | Encounter Summary ---
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 [facility] Procedures Prior Auth Rad Tx [place] IMRT SIMPLE [address] [place] [address] Referral ID Status Reason Start Date Expiration Date Visits Requ ested Visits Authorized [id number] Closed 05/25/2021 05/25/2022 30 30 Encounter Details Date Type Department Care Team Description 07/08/2021 Hospital Encounter Department of Radiation Neal Waddell, Oncology in [place] [address] [facility] [address] [place] [phone] Social History Tobacco Use Types Packs/Day Years [...] you attend mosque or Patient refused 2020 voodoo services? Do you belong to any clubs [...] tablet by mouth 0 10/16 daily. omega 8-cvi-tav-fish oil Take by mouth. 0 1,000 mg [...]
--- OUTSIDE RECORDS SUMMARY | 2022-08-01 07:31 | XMS_ITS | Encounter Summary ---
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 [facility] Procedures Prior Auth Rad Tx CT IMRT SIMPLE [address] [place] [address] Referral ID Status Reason Start Date Expiration Date Visits Requ ested Visits Authorized [id number] Closed 05/25/2021 05/25/2022 30 30 Encounter Details Date Type Department Care Team Description 07/01/2021 Hospital Encounter Department of Radiation Neal Waddell, Oncology in [place] [address] [facility] [address] [place] [phone] Social History Tobacco Use Types Packs/Day Years [...] you attend yazidism or Patient refused 2020 baptist services? Do [...] slept in a group home (including now)? Education Answer Date Recorded [...] tablet by mouth 0 10/16 daily. omega 5-sdg-hoc-fish oil Take by mouth. 0 1,000 mg [...]
--- OUTSIDE RECORDS SUMMARY | 2022-08-01 07:31 | XMS_ITS | Encounter Summary ---
:1965 Author Organization [facility] Address [address] [place] [address] Care Team Providers Name Role Phone Unavailable Primary Care Provider Unavailable Encounter Details Date Type Department Care Team Description 09/04/2020 Admin Visit Department of Family Medicine, [address] [address] [facility] [phone] Social History Tobacco Use Types Packs/Day Years [...] you attend anabaptist or Patient refused 2020 yazdanism services? Do [...] or slept in a penitentiary (including now)? Sex Assigned at Date Recorded Female 07/26/2021 6:15 AM CDT documented as of this encounter Plan of Treatment Not on filedocumented as of this encounter Visit Diagnoses Not on filedocumented in this encounter
--- OUTSIDE RECORDS SUMMARY | 2022-08-01 07:31 | XMS_ITS | Encounter Summary ---
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 [facility] Region Procedures Initial Rad Onc Treatment Planning CT Simulation [address] [place] [address] Referral ID Status Reason Start Date Expiration Date Visits Requ ested Visits Authorized [id number] Closed 05/25/2021 05/25/2022 1 1 Encounter Details Date Type Department Care Team Description 06/23/2021 Hospital Encounter Department of Bryant Waddell Neoplasm Radiation Oncology Mac Kemp Of Breast Lower in [place], [address] [place], [place] Female Right (HCC) [address] [facility] [address] [place], [place] [phone] [address] (Work) [phone] Social History Tobacco Use Types Packs/Day Years [...] you attend baptist or Patient refused 2020 voodoo services? Do [...] tablet by mouth 0 10/16 daily. omega 4-yvi-tlj-fish oil Take by mouth. 0 1,000 mg (120 mg-180 mg) capsule UNABLE TO FIND Evening primrose 650 0 mg UNABLE TO FIND Flaxseed oil 1400 mg 0 UNABLE TO FIND Echinacea 800 mg 0 documented as of this encounter Procedure Notes [...] planning. CT images were transferred to the [employer] treatment planning system, after a reference isocenter was determined and marked. Segmentation and treatment planning will take place priorto treatment delivery. Patient set up and imaging was appropriate and completed without incident. Business Analysis Consultant use:No documented in this encounter Plan of [...] Time / Laterality Volume Narrative [facility] - 06/23/2021 1:58 PM CDT Lisbet Gómez, RTT ? 06/23/2021 ??1:59 PM Initial Rad Onc Treatment Planning CT Si mulation Date/Time: 06/23/2021 1:58 PM Performed by: Bryant Waddell M.D. Authorized by: Leenstra, Bryant L, M.D. Bryant Waddell M.D. RADIATION ONCOLOGY ORDERABLE S Performing Organization Address City/State/ZIP Code Phon e Number [facility] na documented in this encounter Visit Diagnoses Diagnosis Malignant Neoplasm Of Breast Lower Inner Quadrant Female Right (HCC) documented in this encounter
--- OUTSIDE RECORDS SUMMARY | 2022-08-01 07:31 | XMS_ITS | Encounter Summary ---
:1965 Author Organization [facility] Address [address] [place] [address] Care Team Providers Name Role Phone Unavailable Primary Care Provider Unavailable Reason for Visit Radiation Therapy (Routine) - Closed Specialty Diagnoses / Procedures Referred By Contact Refer red To Contact Diagnoses Malignant Neoplasm Of Breast Lower Inner Quadrant Female Right (HCC) Bryant Waddell M.D. [facility] Procedures Prior Auth Rad Tx [place] IMRT SIMPLE [address] [place] [address] Referral ID Status Reason Start Date Expiration Date Visits Requ ested Visits Authorized [id number] Closed 05/25/2021 05/25/2022 30 30 Encounter Details Date Type Department Care Team Description 07/06/2021 Hospital Encounter Department of Radiation Neal Waddell, Oncology in [place] [address] [facility] [address] [place] [phone] Social History Tobacco Use Types Packs/Day Years [...] or relatives? How often do you attend jehovah's witness or Patient refused 2020 hinduism services? Do you belong to any clubs or No 05/24/2021 organizations such as jehovah's witness groups, unions, fraternal or athletic groups, or [...] tablet by mouth 0 10/16 daily. omega 3-ife-tlj-fish oil Take by mouth. 0 1,000 mg [...]
--- OUTSIDE RECORDS SUMMARY | 2022-08-01 07:31 | XMS_ITS | Encounter Summary ---
:1965 Author Organization [facility] Address [address] [place] [address] Care Team Providers Name Role Phone Unavailable Primary Care Provider Unavailable Reason for Visit Radiation Therapy (Routine) - Closed Specialty Diagnoses / Procedures Referred By Contact Refer red To Contact Diagnoses Malignant Neoplasm Of Breast Lower Inner Quadrant Female Right (HCC) Bryant Waddell M.D. [facility] Procedures Prior Auth Rad Tx [place] IMRT SIMPLE [address] [place] [address] Referral ID Status Reason Start Date Expiration Date Visits Requ ested Visits Authorized [id number] Closed 05/25/2021 05/25/2022 30 30 Encounter Details Date Type Department Care Team Description 07/09/2021 Hospital Encounter Department of Radiation Neal Waddell, Oncology in [place] [address] [facility] [address] [place] [phone] Social History Tobacco Use Types Packs/Day Years [...] or relatives? How often do you attend christianity or Patient refused 2020 mormonism services? Do you belong to any clubs or No 05/24/2021 organizations such as christianity groups, unions, fraternal or athletic groups, or [...] tablet by mouth 0 10/16 daily. omega 5-gub-bvc-fish oil Take by mouth. 0 1,000 mg [...]
--- OUTSIDE RECORDS SUMMARY | 2022-08-01 07:31 | XMS_ITS | Encounter Summary ---
:1965 Author Organization [facility] Address [address] [place] [address] Care Team Providers Name Role Phone Unavailable Primary Care Provider Unavailable Reason for Visit Radiation Therapy (Routine) - Closed Specialty Diagnoses / Procedures Referred By Contact Refer red To Contact Diagnoses Malignant Neoplasm Of Breast Lower Inner Quadrant Female Right (HCC) Bryant Waddell M.D. [facility] Procedures Prior Auth Rad Tx [place] IMRT SIMPLE [address] [place] [address] Referral ID Status Reason Start Date Expiration Date Visits Requ ested Visits Authorized [id number] Closed 05/25/2021 05/25/2022 30 30 Encounter Details Date Type Department Care Team Description 07/15/2021 Hospital Encounter Department of Radiation Neal Waddell, Oncology [place] [address] [facility] [address] [place] [phone] Social History Tobacco Use Types Packs/Day Years [...] you attend taoist or Patient refused 2020 alevism services? Do [...] tablet by mouth 0 10/16 daily. omega 9-dwn-jhm-fish oil Take by mouth. 0 1,000 mg [...]
--- OUTSIDE RECORDS SUMMARY | 2022-08-01 07:31 | XMS_ITS | Encounter Summary ---
:1965 Author Organization [facility] Address [address] [place] [address] Care Team Providers Name Role Phone Unavailable Primary Care Provider Unavailable Reason for Visit Radiation Therapy (Routine) - Closed Specialty Diagnoses / Procedures Referred By Contact Refer red To Contact Diagnoses Malignant Neoplasm Of Breast Lower Inner Quadrant Female Right (HCC) Bryant Waddell M.D. [facility] Procedures Prior Auth Rad Tx [place] IMRT SIMPLE [address] [place] [address] Referral ID Status Reason Start Date Expiration Date Visits Requ ested Visits Authorized [id number] Closed 05/25/2021 05/25/2022 30 30 Encounter Details Date Type Department Care Team Description 07/07/2021 Hospital Encounter Department of Radiation Neal Waddell, Oncology in [place] [address] [facility] [address] [place] [phone] Social History Tobacco Use Types Packs/Day Years [...] you attend catholic or Patient refused 2020 holiness services? Do you belong to any clubs [...] tablet by mouth 0 10/16 daily. omega 2-rfm-zrq-fish oil Take by mouth. 0 1,000 mg [...]
--- OUTSIDE RECORDS SUMMARY | 2022-08-01 07:31 | XMS_ITS | Encounter Summary ---
:1965 Author Organization [facility] Address [address] [place] [address] Care Team Providers Name Role Phone Unavailable [...] you attend samaritan or Patient refused 2020 anglican services? Do you belong to any clubs [...]
--- OUTSIDE RECORDS SUMMARY | 2022-08-01 07:31 | XMS_ITS | Encounter Summary ---
:1965 Author Organization [facility] Address [address] [place] [address] Care Team Providers Name Role Phone Unavailable Primary Care Provider Unavailable Reason for Visit Radiation Therapy (Routine) - Closed Specialty Diagnoses / Procedures Referred By Contact Refer red To Contact Diagnoses Malignant Neoplasm Of Breast Lower Inner Quadrant Female Right (HCC) Bryant Waddell M.D. [facility] Procedures Prior Auth Rad Tx [place] IMRT SIMPLE [address] [place] [address] Referral ID Status Reason Start Date Expiration Date Visits Requ ested Visits Authorized [id number] Closed 05/25/2021 05/25/2022 30 30 Encounter Details Date Type Department Care Team Description 07/14/2021 Hospital Encounter Department of Radiation Neal Waddell, Oncology in [place] [address] [facility] [address] [place] [phone] Social History Tobacco Use Types Packs/Day Years [...] you attend mosque or Patient refused 2020 uatsdin services? Do [...] tablet by mouth 0 10/16 daily. omega 6-wmy-mrx-fish oil Take by mouth. 0 1,000 mg [...]
--- OUTSIDE RECORDS SUMMARY | 2022-08-01 07:31 | XMS_ITS | Encounter Summary ---
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 [facility] Procedures Prior Auth Rad Tx [place] IMRT SIMPLE [address] [place] [address] Referral ID Status Reason Start Date Expiration Date Visits Requ ested Visits Authorized [id number] Closed 05/25/2021 05/25/2022 30 30 Encounter Details Date Type Department Care Team Description 07/13/2021 Hospital Encounter Department of Radiation Neal Waddell, Oncology in [place] [address] [facility] [address] [place] [phone] Social History Tobacco Use Types Packs/Day Years [...] or relatives? How often do you attend jain or Patient refused 2020 amish services? Do you belong to any clubs or No 05/24/2021 organizations such as jain groups, unions, fraternal or athletic groups, or [...] tablet by mouth 0 10/16 daily. omega 7-uks-wjl-fish oil Take by mouth. 0 1,000 mg [...]
--- OUTSIDE RECORDS SUMMARY | 2022-08-01 07:31 | XMS_ITS | Encounter Summary ---
:1965 Author Organization [facility] Address [address] [place] [address] Care Team Providers Name Role Phone Unavailable Primary Care Provider Unavailable Reason for Visit Appointment Request (Routine) - Closed Specialty Diagnoses / Procedures Referred By Contact Refer red To Contact Radiation Oncology Diagnoses Breast Cancer (Primary) NOS Adriana Anderson M.D. [address] [place] [address] Referral ID Status Reason Start Date Expiration Date Visits Requ ested Visits Authorized [id number] Closed 05/11/2021 05/11/2022 1 1 Encounter Details Date Type Department Care Team Description 05/26/2021 Hospital Encounter Department of Bryatn Waddell Neoplasm Radiation Oncology Mac Kemp Of Breast Lower in [address] Female Right (HCC) [address] [facility] [address] (Primary Dx) [place], [place] [phone] [address] (Work) [phone] Social History Tobacco Use Types Packs/Day Years [...] or relatives? How often do you attend gnosticist or Patient refused 2020 evangelical services? Do you belong to any clubs or No 05/24/2021 organizations such as gnosticist groups, unions, fraternal or athletic groups, or [...] tablet by mouth 0 10/16 daily. omega 5-tmv-qud-fish oil Take by mouth. 0 1,000 mg [...] Right (HCC) SUPERVISED BY: Bryant Waddell M.D. ([phone]) HISTORY OF PRESENT ILLNESS Mrs. Shahrzad Solitario is a 55-year-old female with stage IIB (cT2, cN1, cM0, G3, ER+, AL+, HER2-) invasive ductal carcinoma of the right [...] demonstrated invasive ductal carcinoma with associated necrosis, [place]ets[place] grade 3. Angiolymphatic invasion was not identified. [...] right breast demonstrated residual invasive ductal carcinoma, [place] grade 2, measuring 13 x 12 mm. [...] an unknown type, possibly related to Agent [place]. SOCIAL HISTORY She lives in [place], [place]. She is to her , [place]. She has 2 children, ages 32 and 28. She has 6 grandchildren. They live in [place] and [place]. 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 She is a former smoker with a [...] Stage IIB (cT2, cN1, cM0, G3, ER+, AL+, HER2-) invasive ductal carcinoma of the right breast #2 Neoadjuvant chemotherapy with Adriamycin/Cytoxan for 4 cycles followed by weekly paclitaxel for 12 weeks completed April 08, 2021 #3 Right breast lumpectomy, right axillary sentinel lymph node biopsy, and right axillary dissectionon April 29, 2021 with final pathologic staging ypT1c, pN1mi, cM0, G2, ER+, AL+, HER2- I had a discussion with the [...] Stapleton P.A.-C., M.S. 05/26/2021 3:20 PM CDT [facility] [address] [place] [address] Associated attestation - Bryant Waddell M.D. - 05/26/2021 5:45 PM CDT I saw and evaluated the patient and participated in the bernardo portions of the service. I reviewed the documentation of Gloria Stapleton P.A.-C. and agree with the findings and plan. In brief, Mrs. Shahrzad Solitario is a 55-year-old female with stage IIB (cT2, cN1, cM0, G3, ER+, AL+, HER2-) invasive ductal carcinoma of the right [...] invasive ductal carcinoma, grade 3, ER positive, AL positive, HER2 negative. An ultrasound-guided core needle [...] undergoing physical therapy. 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 Her ECO[employer] performance status is 0. OBJECTIVE PHYSICAL EXAM General: Patient is awake, alert, and oriented to person, place, and time. No apparent distress. Herexam was chaperoned by Shanika Hsu R.N. ENT: Pupils equal, round, and [...] Stage IIB (cT2, cN1, cM0, G3, ER+, AL+, HER2-) invasive ductal carcinoma of the right breast #2 Neoadjuvant chemotherapy with Adriamycin/Cytoxan for 4 cycles followed by weekly paclitaxel for 12 weeks completed April 08, 2021 #3 Right breast lumpectomy, right axillary sentinel lymph node biopsy, and right axillary dissectionon April 29, 2021 with final pathologic staging ypT1c, pN1mi, cM0, G2, ER+, AL+, HER2- I had a detailed discussion with [...] Bryant Waddell M.D. 05/26/2021 5:45 PM CDT [facility] Radiation Therapy [facility] documented in this encounter Miscellaneous Notes Addendum [...]
[2022-08-01 09:28] LABS: Cholesterol* 184 mg/dL (90-199)
[2022-08-01 09:29] LABS: HDL Cholesterol* 44 mg/dL (>=50); LDL Cholesterol Calculated 111 mg/dL (<100); Triglycerides* 143 mg/dL (40-149)
== END 2022-08-01 15:40 | disposition home or self-care (01) ==
PROVIDERS: PCP Family Medicine; Visit Provider Family Medicine
DX: E78.5 Hyperlipidemia, unspecified (principal)
CPT/HCPCS: 80061

== ENCOUNTER 2022-09-22 10:45 | Outpatient (RCR) | payer BC, SELFPAY ==
--- NOTE | 2022-09-02 10:42 | PC.NURSE ---
Addendum entered by Alexa John 09/13/22 13:38: Spoke to patient. Instructed her to take her Ondansetron, 1GM Acetaminophen and 25 mg of Diphenhydramine 30-60 minutes prior to her Zometa infusion on 09/22. Patient verbalizes understanding of plan. Original Note: Message left for patient requesting return call to discuss premeds needed prior to 09/22 Zometa infusion. Patient should take OTC Tylenol 1GM and Benadryl 25 mg 30-60 minutes prior to infusion. An Rx for Zofran was sent to her pharmacy and should be taken along with the other pre-medications.
--- NOTE | 2022-09-19 14:58 | ONC.NURNOTE ---
Authorization: User: Shahana Marrero Date: 09/29/21 11:57 Type: Eligibility Determination Note... Received request for prior auth for Zoledronic acid ([id number]). Per Renetta at [facility], injectable is covered as long as it is FDA approved. no prior auth is required call ref #[id number]
[2022-09-22 11:08] LABS: Creatinine* 0.9 mg/dL (0.5-1.5); Estimated Glomerular Filt Rate 76 ml/min
[2022-09-22 11:09] LABS: Calcium* 9.8 mg/dL (8.4-10.6)
[2022-09-22] MEDS: ZOLEDRONIC ACID 4 MG in 0.9 % SODIUM CHLORIDE 100 ml 100 ML 420 MG IVPB (12:42)
== END 2022-12-27 23:59 | disposition home or self-care (01) ==
LOC: CCIC 10:45
PROVIDERS: Nurse Practitioner Family; PCP Family Medicine; Referring Provider Family Medicine; Visit Provider Internal Medicine Hematology & Oncology
DX: C50.911 Malignant neoplasm of unspecified site of right female breast (principal); Z17.0 Estrogen receptor positive status [ER+]; Z79.811 Long term (current) use of aromatase inhibitors
CPT/HCPCS: 36415; 82310; 82565; 96374; 99212; 99213; 99214; J3489

== ENCOUNTER 2022-11-28 07:22 | Outpatient (CLI) | payer BC, SELFPAY ==
[2022-11-28 10:07] LABS: Albumin* 4.7 g/dL (3.3-5.0); Chloride* 101 mmol/L (96-114)
[2022-11-28 10:08] LABS: Potassium* 4.3 mmol/L (3.6-5.1); Sodium* 141 mmol/L (135-149)
[2022-11-28 10:10] LABS: Aspartate Amino Transferase* 24 U/L (12-35); Bilirubin Direct* 0.2 mg/dL (0.0-0.5); Bilirubin Total* 0.6 mg/dL (0.1-1.5); Blood Urea Nitrogen* 18 mg/dL (7-30); Carbon Dioxide* 31 mmol/L (20-32); Cholesterol* 187 mg/dL (90-199); Creatinine* 0.8 mg/dL (0.5-1.5); Estimated Glomerular Filt Rate 87 ml/min; Glucose* 114 mg/dL (60-115); Triglycerides* 207 mg/dL (40-149)
[2022-11-28 10:11] LABS: Alanine Aminotransferase* 31 U/L (4-35); Alkaline Phosphatase* 85 U/L (40-150); Calcium* 10.1 mg/dL (8.4-10.6); HDL Cholesterol* 50 mg/dL (>=50); LDL Cholesterol Calculated 96 mg/dL (<100)
== END 2022-11-28 07:23 | disposition home or self-care (01) ==
LOC: NFLDREF 07:23
PROVIDERS: PCP Family Medicine; Visit Provider Family Medicine
DX: Z01.419 Encounter for gynecological examination (general) (routine) without abnormal findings (principal); E78.5 Hyperlipidemia, unspecified; I10 Essential (primary) hypertension; K76.0 Fatty (change of) liver, not elsewhere classified; R73.03 Prediabetes; E66.01 Morbid (severe) obesity due to excess calories; F41.9 Anxiety disorder, unspecified
CPT/HCPCS: 80053; 80061; 80076

== ENCOUNTER 2023-03-23 13:00 | Outpatient (RCR) | payer BC, SELFPAY ==
[2023-03-16 08:54] LABS: Calcium* 9.9 mg/dL (8.4-10.6); Creatinine* 0.7 mg/dL (0.5-1.5); Estimated Glomerular Filt Rate 102 ml/min
--- NOTE | 2023-03-16 15:25 | PC.NURSE ---
Called pt to let her know that her Zometa prior auth is still pending. She will plan to go to work tomorrow (Monday) and understands we will call to schedule her once we get an approval.
--- NOTE | 2023-03-20 13:59 | URNOTE ---
Request received for authorization for Zometa (Zoledronic acid)?(J3489). Prior authorization is not required per Rep. Deonte Bailey ([phone]) at , Ref# [id number].
[2023-03-23 13:05] VITALS: BP 133/88; PULSE 92; RESP 16; TEMP 36.2; O2SAT 96
[2023-03-23] MEDS: ZOLEDRONIC ACID 4 MG in 0.9 % SODIUM CHLORIDE 100 ml 100 ML 420 MG IVPB (13:22)
--- NOTE | 2023-06-20 15:56 | ONC.NURNOTE ---
Mechanical System Technician called to remind Yaquelin of her Dr Meyer appointment on 06/21/2023, Yaquelin has declined this appointment and will come in September.
== END 2023-09-12 23:59 | disposition home or self-care (01) ==
LOC: CCIC 13:00
PROVIDERS: PCP Family Medicine; Referring Provider Family Medicine; Visit Provider Internal Medicine Hematology & Oncology
DX: C50.311 Malignant neoplasm of lower-inner quadrant of right female breast (principal); Z17.0 Estrogen receptor positive status [ER+]; Z79.811 Long term (current) use of aromatase inhibitors; G62.0 Drug-induced polyneuropathy; T45.1X5A Adverse effect of antineoplastic and immunosuppressive drugs, initial encounter
CPT/HCPCS: 36415; 82310; 82565; 96374; 99212; 99215; J3489

== ENCOUNTER 2023-04-25 14:23 | Outpatient (CLI) | payer BC, SELFPAY ==
--- NOTE | 2023-04-25 14:40 | CRLHL7_ITS ---
For Patients: As a result of the Century Cures Act, medical imaging exams and procedure reports are released immediately into your electronic medical record. You may view this report before your referring provider. If you have questions, please contact your health care provider. BILATERAL SCREENING MAMMOGRAM WITH COMPUTER-AIDED DETECTION AND TOMOSYNTHESIS TECHNIQUE: CC and MLO views were obtained. These mammographic images have been obtained using full-field digital technique. These mammographic images were interpreted with the benefit of computer-aided detection. Breast tomosynthesis was used in this interpretation. COMPARISON FILM: Diagnostic 03/23/22, screening 04/29/21, MRI 04/13/21. FINDINGS: The breasts are heterogeneously dense, which may obscure small masses. IMPRESSION: There is no radiographic evidence for malignancy. ASSESSMENT: BI-RADS Category 1: Negative RECOMMENDATION: Routine screening mammogram in 1 year. A lay language report of this examination will be provided to the patient. YOGESH XIE M.D. Diagnostic Radiologist [email or web address] LUISA/lilian Transcribed: 04/26/2023, 6:[address]/Dictated by: Yogesh Xie MD @ 04/26/2023 9:29:00 AM (Electronically Signed)
== END 2023-04-25 14:24 | disposition home or self-care (01) ==
PROVIDERS: PCP Family Medicine; Visit Provider Family Medicine
DX: Z12.31 Encounter for screening mammogram for malignant neoplasm of breast (principal); R92.2 Inconclusive mammogram
CPT/HCPCS: 77063; 77067

== ENCOUNTER 2023-05-22 07:38 | Outpatient (CLI) | payer BC, SELFPAY | END 2023-05-22 07:39 | disposition home or self-care (01) | LOC: NFLDREF 05-24 12:57 | PROVIDERS: PCP Family Medicine; Referring Provider Family Medicine; Visit Provider Family Medicine | DX: I10 Essential (primary) hypertension (principal); R73.03 Prediabetes | CPT/HCPCS: 80048 ==

== ENCOUNTER 2023-09-28 09:23 | Outpatient (RCR) | payer BC, SELFPAY ==
[2023-09-28 10:01] LABS: Creatinine* 0.8 mg/dL (0.5-1.5); Estimated Glomerular Filt Rate 87 ml/min
[2023-09-28] MEDS: ZOLEDRONIC ACID 4 MG in 0.9 % SODIUM CHLORIDE 100 ml 100 ML 420 MG IVPB (12:12)
[2023-09-28] MEDS: SODIUM CHLORIDE 0.9 % (FLUSH) 10 ML SYRINGE IVF (12:24)
[2023-09-28] MEDS: 5 % DEXTROSE 250 ML IV (12:24)
--- NOTE | 2023-10-23 13:50 | ONC.NURNOTE ---
Lida Ann PA-C reviewed dexa scan and mammogram. Pt notified that results were normal. Pt verbalized understanding.
--- NOTE | 2023-10-30 15:23 | ONC.NURNOTE ---
Script for anastrozole sent to pt's pharmacy by Lida LERMA initiated by [facility].
--- NOTE | 2024-03-22 12:42 | URNOTE ---
?Request received for authorization for Zoledronic Acid ([id number]). Prior authorization is not required per [facility] Ref#[id number].
== END 2024-03-26 23:59 | disposition home or self-care (01) ==
LOC: CCIC 09:23
PROVIDERS: Internal Medicine Hematology & Oncology; PCP Family Medicine; Referring Provider Family Medicine; Visit Provider Physician Assistant
DX: C50.311 Malignant neoplasm of lower-inner quadrant of right female breast (principal); Z17.0 Estrogen receptor positive status [ER+]; Z79.811 Long term (current) use of aromatase inhibitors; G62.0 Drug-induced polyneuropathy; T45.1X5A Adverse effect of antineoplastic and immunosuppressive drugs, initial encounter; N63.10 Unspecified lump in the right breast, unspecified quadrant
CPT/HCPCS: 36415; 82310; 82565; 96374; 99212; 99215; J3489; J7050

== ENCOUNTER 2023-10-20 07:26 | Outpatient (CLI) | payer BC, SELFPAY ==
--- NOTE | 2023-10-20 07:45 | CRLHL7_ITS ---
For Patients: As a result of the Cures Act, medical imaging exams and procedure reports are released immediately into your electronic medical record. You may view this report before your referring provider. If you have questions, please contact your health care provider. DIAGNOSTIC RIGHT BREAST MAMMOGRAM WITH COMPUTER-AIDED DETECTION AND TOMOSYNTHESIS RIGHT BREAST ULTRASOUND CLINICAL HISTORY: RIGHT breast multifocal pain/tenderness, inferior lump. COMPARISON: 04/25/2023, 03/23/2022. TECHNIQUE: Digital RIGHT mammogram in 2 projections. Computer-aided detection and tomosynthesis were used. Real-time ultrasound imaging of RIGHT breast with imaging documentation. BREAST COMPOSITION: There are scattered areas of fibroglandular density FINDINGS: Normal post treatment changes RIGHT breast. Normal scar tissue. No suspicious findings. No change from the prior studies. Targeted ultrasound in the area of palpable lump demonstrates normal scar tissue 5 o`clock 5 cm from the nipple. IMPRESSION: Expected post treatment changes. RECOMMENDATIONS: Routine follow-up. BI-RADS Category 2: Benign A lay language report of this examination will be provided to the patient. Dictated by Yogesh Barth MD @ 10/20/2023 9:11:56 AM/leeann JHON/Dictated by: Yogesh Barth MD @ 10/20/2023 9:11:00 AM (Electronically Signed)
--- NOTE | 2023-10-20 08:15 | CRLHL7_ITS ---
For Patients: As a result of the Century Cures Act, medical imaging exams and procedure reports are released immediately into your electronic medical record. You may view this report before your referring provider. If you have questions, please contact your health care provider. PLEASE SEE RIGHT BREAST DIAGNOSTIC MAMMOGRAM OF SAME DAY. CRL:leeann JHON/Dictated by: Yogesh Barth MD @ 10/20/2023 9:12:00 AM (Electronically Signed)
--- NOTE | 2023-10-20 09:15 | CRLHL7_ITS ---
For Patients: As a result of the Century Cures Act, medical imaging exams and procedure reports are released immediately into your electronic medical record. You may view this report before your referring provider. If you have questions, please contact your health care provider. DXA BONE MINERAL DENSITY STUDY Current height (in): 65.0. Weight (lb): 250.0. Menopause age: 55. Ethnicity: White. Reason for exam: On anastrozole. Monitor bone density. 1. Have you had a previous hip or vertebral fracture? No. 2. Have you had any fractures during your adult life which did not result from significant trauma (e.g., auto accident)? No. 3. Did either of your parents have a hip fracture? No. 4. Do you smoke? No. 5. Have you ever taken Glucocorticoids? No. 6. Do you have rheumatoid arthritis? No. 7. Do you have secondary osteoporosis? No. 8. Do you drink 3 or more alcoholic drinks per day? No. 9. Are you being treated for osteoporosis? No. 10. Have you ever taken any of the following medications: Actonel, Evista, Fosamax, Miacalcin, Reclast, Boniva, Forteo, HRT (i.e. estrogen/hormone therapy), Protelos, Prolia, Vitamin D, Calcium, other ??? please specify. ANSWER: Yes, vitamin D, calcium. 11. Do you have any of the following medical conditions: Anorexia or bulimia, asthma or emphysema, end stage renal disease, hyperparathyroidism, any seizure disorders, cancer, inflammatory bowel diseases, hysterectomy, other ??? please specify. ANSWER: Yes, cancer. 12. What was your maximum height (inches)? 65. 13. Do you perform weight bearing exercise regularly? No. 14. Do you regularly consume dairy products? Yes. 15. Do you drink caffeinated beverages? Yes. 16. At what age did your period start? 14. 17. Are you premenopausal? No. 18. How many full term pregnancies have you had? 2. 19. Have you ever missed your period for more than 6 months in a row (not including or menopause)? Yes. TECHNIQUE: Bone mineral density study was performed using the [employer]. FINDINGS: The results of the study expressed as bone mineral density (BMD) are as follows: Lumbar spine L1, L2, L4: BMD: 1.107 g/cm2. T-score: 0.7. Z-score: 1.8 Neck Left: BMD: 0.867 g/cm2. T-score: 0.2. Z-score: 1.3 Right: BMD: 0.877 g/cm2. T-score: 0.3. Z-score: 1.4 Total Left: BMD: 1.070g/cm2. T-score: 1.0. Z-score: 1.8 Right: BMD: 1.075g/cm2. T-score: 1.1. Z-score: 1.8 IMPRESSION: Normal bone density. *Comparison exams done prior to 03/2020 were performed on different unit, [facility] [employer] COMPARISON: Compared with scan of 06/10/2021, the bone mineral density has decreased by 0.2 percent at the spine and increased by 4.4 percent at the hip. Yogesh Barth M.D. Diagnostic Radiologist [email or web address] Transcribed: 2:11 pm DW/Dictated by: Yogesh Barth MD @ 10/20/2023 11:35:00 AM (Electronically Signed)
== END 2023-10-20 07:27 | disposition home or self-care (01) ==
PROVIDERS: PCP Family Medicine; Visit Provider Physician Assistant
DX: N63.10 Unspecified lump in the right breast, unspecified quadrant (principal); C50.311 Malignant neoplasm of lower-inner quadrant of right female breast; Z79.811 Long term (current) use of aromatase inhibitors; G62.0 Drug-induced polyneuropathy; T45.1X5A Adverse effect of antineoplastic and immunosuppressive drugs, initial encounter
CPT/HCPCS: 76642; 77065; 77080; G0279

== ENCOUNTER 2023-12-06 07:57 | Outpatient (CLI) | payer BC, SELFPAY | END 2023-12-06 07:58 | disposition home or self-care (01) | LOC: NFLDREF 12-07 07:33 | PROVIDERS: PCP Family Medicine; Referring Provider Family Medicine; Visit Provider Family Medicine | DX: E78.5 Hyperlipidemia, unspecified (principal); I10 Essential (primary) hypertension; R73.03 Prediabetes | CPT/HCPCS: 80053; 80061 ==

== ENCOUNTER 2024-03-06 07:28 | Outpatient (CLI) | payer BC, SELFPAY | END 2024-03-06 07:29 | disposition home or self-care (01) | LOC: NFLDREF 03-26 10:30 | PROVIDERS: PCP Family Medicine; Referring Provider Family Medicine; Visit Provider Family Medicine | DX: R73.03 Prediabetes (principal); I10 Essential (primary) hypertension; E78.5 Hyperlipidemia, unspecified; R53.83 Other fatigue; K76.0 Fatty (change of) liver, not elsewhere classified | CPT/HCPCS: 80053; 80061; 82043; 82570; 84439; 84443 ==

== ENCOUNTER 2024-03-28 09:44 | Outpatient (RCR) | payer BC, SELFPAY ==
[2024-03-28 10:25] LABS: Calcium* 9.8 mg/dL (8.4-10.6); Creatinine* 0.7 mg/dL (0.5-1.5); Estimated Glomerular Filt Rate 101 ml/min
[2024-03-28] MEDS: ZOLEDRONIC ACID 4 MG in 0.9 % SODIUM CHLORIDE 100 ml 100 ML 420 MG IVPB (11:21)
== END 2024-09-24 23:59 | disposition home or self-care (01) ==
LOC: CCIC 09:44
PROVIDERS: PCP Family Medicine; Referring Provider Family Medicine; Visit Provider Physician Assistant
DX: C50.311 Malignant neoplasm of lower-inner quadrant of right female breast (principal); Z17.0 Estrogen receptor positive status [ER+]; Z79.811 Long term (current) use of aromatase inhibitors; K76.0 Fatty (change of) liver, not elsewhere classified
CPT/HCPCS: 36415; 82310; 82565; 96374; 99214; G0463; J3489

== ENCOUNTER 2024-06-06 08:25 | Outpatient (CLI) | payer BC, SELFPAY ==
--- NOTE | 2024-06-06 08:45 | CRLHL7_ITS ---
For Patients: As a result of the Cures Act, medical imaging exams and procedure reports are released immediately into your electronic medical record. You may view this report before your referring provider. If you have questions, please contact your health care provider. BILATERAL DIAGNOSTIC MAMMOGRAM WITH COMPUTER-AIDED DETECTION AND TOMOSYNTHESIS RIGHT BREAST ULTRASOUND CLINICAL HISTORY: RIGHT breast lump. COMPARISON: 10/20/2023, 04/25/2023, 03/23/2022, 10/19/2020. TECHNIQUE: Digital BILATERAL mammogram in four projections with computer-aided detection. Tomosynthesis was used in this interpretation. Real-time ultrasound imaging of RIGHT breast with imaging documentation. Scanning was performed by both the technologist and the radiologist. BREAST COMPOSITION: There are scattered areas of fibroglandular density. FINDINGS: 3D CC/MLO BILATERAL mammogram images submitted. Post-treatment changes are present on the RIGHT, as before. No suspicious masses or architectural distortion. No suspicious calcifications. Targeted RIGHT breast ultrasound performed in the area of concern at 6 o`clock 7 cm from the nipple. In this location, there is a small raised red skin bump with an associated subtle area of decreased echotexture within the epidermal layer measuring 5 x 3 x 4 mm. No deeper lesion. No fluid collection or abscess. This area appears separate from the previously evaluated scar tissue at 5 o`clock 5 cm from the nipple. IMPRESSION: Small raised red bump RIGHT breast 6 o`clock 7 cm from the nipple with a small hypoechoic focus in the epidermal layer measuring 5 mm. This is probably inflammatory although surgical excision is advised. RECOMMENDATIONS: Surgical consultation for consideration of surgical excision. BI-RADS Category 4: Suspicious Results and recommendations discussed with the patient. Dictated by Yogesh Barth MD @ 06/06/2024 9:58:26 AM /mónica/kendra SP/Dictated by: Yogesh Barth MD @ 06/06/2024 9:58:00 AM JHON/Dictated by: Yogesh Barth MD @ 06/06/2024 9:58:00 AM (Electronically Signed)
--- NOTE | 2024-06-06 09:15 | CRLHL7_ITS ---
For Patients: As a result of the Century Cures Act, medical imaging exams and procedure reports are released immediately into your electronic medical record. You may view this report before your referring provider. If you have questions, please contact your health care provider. PLEASE SEE BILATERAL BREAST DIAGNOSTIC MAMMOGRAM PERFORMED THE SAME DAY. CRL:sp SP/Dictated by: Yogesh Barth MD @ 06/06/2024 9:58:00 AM (Electronically Signed)
== END 2024-06-06 08:26 | disposition home or self-care (01) ==
LOC: MAMMO 08:25
PROVIDERS: PCP Family Medicine; Visit Provider Family Medicine
DX: N63.10 Unspecified lump in the right breast, unspecified quadrant (principal)
CPT/HCPCS: 76642; 77066; G0279

== ENCOUNTER 2024-10-02 08:19 | Outpatient (CLI) | payer BC, SELFPAY ==
--- NOTE | 2024-10-02 09:00 | CRLHL7_ITS ---
For Patients: As a result of the Century Cures Act, medical imaging exams and procedure reports are released immediately into your electronic medical record. You may view this report before your referring provider. If you have questions, please contact your health care provider. Indication: FATTY LIVER HX; LFT ELEVATION OVER LAST YEAR; 3X UPPER LIMIT OF NORMAL- POSSIBLE METASTATIC DISEASE Technique: CT Abdomen/Pelvis 122CC ISOVUE 370 Please note that all CT scans at this facility use dose modulation, iterative reconstruction, and/or weight-based dosing when appropriate to reduce radiation dose to as low as reasonably achievable. Comparison: Ultrasound 10/19/2020 Findings: Postop changes right breast lumpectomy. Mild radiation pneumonitis changes to the anterior right lung. No pleural effusion. Decreased attenuation of the liver including focal fat deposition within the liver adjacent to the falciform ligament. No suspicious intrahepatic mass. No cirrhosis. Portal vein is patent. Normal spleen. Adrenal glands, kidneys, ureters and bladder normal. Normal pancreas. Mildly prominent periportal lymph nodes are present measuring up to 1 cm. Mild sigmoid diverticulosis. Normal uterus and ovaries. Appendix normal. No fracture. Degenerative facet arthropathy lumbar spine with slight degenerative anterolisthesis of L3 on L4 and L4 on L5. Impression: Mild diffuse hepatic steatosis. No suspicious intrahepatic mass or stigmata of cirrhosis. No ascites. Mildly prominent periportal lymph nodes measuring up to 1 cm. Please note that all CT scans at this facility use dose modulation, iterative reconstruction, and/or weight-based dosing when appropriate to reduce radiation dose to as low as reasonably achievable. Dictated by Yogesh Barth MD @ 10/02/2024 12:44:18 PM (Electronically Signed)
== END 2024-10-02 08:20 | disposition home or self-care (01) ==
LOC: CT 08:20
PROVIDERS: PCP Family Medicine; Visit Provider Physician Assistant
DX: K76.0 Fatty (change of) liver, not elsewhere classified (principal); C50.311 Malignant neoplasm of lower-inner quadrant of right female breast; R74.8 Abnormal levels of other serum enzymes; Z17.0 Estrogen receptor positive status [ER+]
CPT/HCPCS: 74177; Q9967

== ENCOUNTER 2024-10-10 09:00 | Outpatient (RCR) | payer BC, SELFPAY ==
[2024-09-26 14:14] LABS: Basophils Absolute Auto 0.05 K/uL (0.00-0.30); Basophils Percent Auto 0.5 % (0.0-3.0); Eosinophils Percent Auto 2.1 % (0.0-7.0); Hematocrit 40.9 % (33.0-51.0); Hemoglobin* 13.3 gm/dL (12.0-16.0); Immature Granulocytes Abs Auto 0.02 K/uL (0.00-0.30); Immature Granulocytes Pct Auto 0.2 %; Lymphocytes Absolute Auto 2.58 K/uL (0.90-2.90); Lymphocytes Percent Auto 26.7 % (20-44); Mean Corpuscular HGB Conc 33 gm/dL (32-36); Mean Corpuscular Hemoglobin 28 pg (26-34); Mean Corpuscular Volume 87 fL (80-100); Monocytes Percent Auto 7.3 % (0.0-11.0); Neutrophils Absolute Auto 6.12 K/uL (1.7-7.0); Neutrophils Percent Auto 63.2 % (42.0-72.0); Platelet Count* 252 K/uL (140-440); RDW Coefficient of Variation % 13.2 % (11.5-15.5); Red Blood Count 4.69 m/uL (4.00-5.20); White Blood Count* 9.68 K/uL (4.50-11.00)
[2024-09-26 14:16] LABS: Slide Review Reflex No
[2024-09-26 14:29] LABS: Chloride* 98 mmol/L (96-114); Potassium* 3.6 mmol/L (3.6-5.1); Sodium* 138 mmol/L (135-149)
[2024-09-26 14:32] LABS: Alanine Aminotransferase* 106 U/L (4-35); Alkaline Phosphatase* 85 U/L (40-150); Anion Gap 11 mEq/L (7-15); Aspartate Amino Transferase* 74 U/L (12-35); Bilirubin Total* 0.5 mg/dL (0.1-1.5); Blood Urea Nitrogen* 15 mg/dL (7-30); Calcium* 10.2 mg/dL (8.4-10.6); Carbon Dioxide* 29 mmol/L (20-32); Creatinine* 0.7 mg/dL (0.5-1.5); Estimated Glomerular Filt Rate 101 ml/min; Glucose* 118 mg/dL (60-115); Total Protein* 8.5 g/dL (6.0-8.3)
--- NOTE | 2024-10-03 12:52 | ONC.NURNOTE ---
CT scan results reviewed by Lida LERMA left message for patient to call lab due in the next week or so next steps to go to PCP for further work up
[2024-10-10 09:14] LABS: Albumin* 4.6 g/dL (3.3-5.0)
[2024-10-10 09:17] LABS: Alanine Aminotransferase* 94 U/L (4-35); Alkaline Phosphatase* 68 U/L (40-150); Aspartate Amino Transferase* 51 U/L (12-35); Bilirubin Direct* 0.3 mg/dL (0.0-0.5); Bilirubin Total* 0.6 mg/dL (0.1-1.5); Total Protein* 7.8 g/dL (6.0-8.3)
== END 2025-03-25 23:59 | disposition home or self-care (01) ==
LOC: CCIC 09:00
PROVIDERS: PCP Family Medicine; Referring Provider Family Medicine; Visit Provider Physician Assistant
DX: C50.311 Malignant neoplasm of lower-inner quadrant of right female breast (principal); Z17.0 Estrogen receptor positive status [ER+]; K76.0 Fatty (change of) liver, not elsewhere classified
CPT/HCPCS: 36415; 80053; 80076; 85025; 99215; G0463

== ENCOUNTER 2024-12-03 07:29 | Outpatient (CLI) | payer BC, SELFPAY | END 2024-12-03 07:30 | disposition home or self-care (01) | LOC: NFLDREF 12-07 01:44 | PROVIDERS: PCP Family Medicine; Referring Provider Family Medicine; Visit Provider Family Medicine | DX: E11.69 Type 2 diabetes mellitus with other specified complication (principal); E66.01 Morbid (severe) obesity due to excess calories; I10 Essential (primary) hypertension; E78.5 Hyperlipidemia, unspecified; E83.52 Hypercalcemia; Z79.899 Other long term (current) drug therapy | CPT/HCPCS: 80053; 80061; 82043; 82306; 82570; 82607; 83970 ==

== ENCOUNTER 2025-03-27 14:03 | Outpatient (RCR) | payer OTHER, SELFPAY ==
[2025-03-27 14:30] LABS: Hematocrit* 37.3 % (33.0-51.0); Hemoglobin* 12.1 gm/dL (12.0-16.0); Immature Granulocytes Abs Auto 0.02 K/uL (0.00-0.30); Immature Granulocytes Pct Auto 0.2 %; Lymphocytes Absolute Auto 2.41 K/uL (0.90-2.90); Mean Corpuscular HGB Conc 32 gm/dL (32-36); Mean Corpuscular Hemoglobin 29 pg (26-34); Mean Corpuscular Volume 88 fL (80-100); RDW Coefficient of Variation % 13.3 % (11.5-15.5); Red Blood Count* 4.25 m/uL (4.00-5.20); White Blood Count* 8.98 K/uL (4.50-11.00)
[2025-03-27 14:36] LABS: Slide Review Reflex No
[2025-03-27 14:46] LABS: Albumin* 4.6 g/dL (3.3-5.0); Chloride* 97 mmol/L (96-114); Potassium* 4.3 mmol/L (3.6-5.1); Sodium* 136 mmol/L (135-149)
[2025-03-27 14:48] LABS: Anion Gap 9 mEq/L (7-15); Bilirubin Total* 0.4 mg/dL (0.1-1.5); Blood Urea Nitrogen* 11 mg/dL (7-30); Carbon Dioxide* 30 mmol/L (20-32); Creatinine* 0.7 mg/dL (0.5-1.5); Estimated Glomerular Filt Rate 101 ml/min
[2025-03-27 14:49] LABS: Alanine Aminotransferase* 60 U/L (4-35); Alkaline Phosphatase* 74 U/L (40-150); Aspartate Amino Transferase* 56 U/L (12-35); Calcium* 9.9 mg/dL (8.4-10.6); Glucose* 121 mg/dL (60-115); Total Protein* 8.5 g/dL (6.0-8.3)
== END 2025-09-23 23:59 | disposition home or self-care (01) ==
LOC: CCIC 14:03
PROVIDERS: Physician Assistant; PCP Family Medicine; Referring Provider Family Medicine; Visit Provider Internal Medicine Hematology & Oncology
DX: C50.311 Malignant neoplasm of lower-inner quadrant of right female breast (principal); Z17.0 Estrogen receptor positive status [ER+]; K76.0 Fatty (change of) liver, not elsewhere classified; Z79.811 Long term (current) use of aromatase inhibitors; R79.89 Other specified abnormal findings of blood chemistry
CPT/HCPCS: 36415; 80053; 85025; 99213; 99214; G0463

== ENCOUNTER 2025-05-30 12:49 | Outpatient (CLI) | payer OTHER, SELFPAY ==
--- NOTE | 2025-05-30 13:00 | CRLHL7_ITS ---
For Patients: As a result of the Century Cures Act, medical imaging exams and procedure reports are released immediately into your electronic medical record. You may view this report before your referring provider. If you have questions, please contact your health care provider. INDICATION: BILATERAL SCREENING MAMMOGRAM, ASYMPTOMATIC 59 Y/O FEMALE COMPARISON: 06/06/2024, 10/20/2023, 04/25/2023 TECHNIQUE: Digital mammogram in CC and MLO projections including computer-aided detection (CAD) and tomosynthesis. BREAST COMPOSITION: There are scattered areas of fibroglandular density. FINDINGS: No suspicious findings. There are post-surgical changes of the right breast. ASSESSMENT: BI-RADS 2 Benign RECOMMENDATION: Annual screening mammogram. A lay language report of this examination will be provided to the patient. Dictated by: Shanell Blair MD @ 06/02/2025 07:27:19 (Electronically Signed)
== END 2025-05-30 12:50 | disposition home or self-care (01) ==
LOC: MAMMO 12:50
PROVIDERS: PCP Family Medicine; Visit Provider Family Medicine
DX: Z12.31 Encounter for screening mammogram for malignant neoplasm of breast (principal)
CPT/HCPCS: 77063; 77067

== ENCOUNTER 2025-06-10 15:09 | Outpatient (CLI) | payer OTHER, SELFPAY | END 2025-06-10 15:10 | disposition home or self-care (01) | LOC: NFLDREF 06-15 04:45 | PROVIDERS: PCP Family Medicine; Referring Provider Family Medicine; Visit Provider Family Medicine | DX: E11.69 Type 2 diabetes mellitus with other specified complication (principal); E78.5 Hyperlipidemia, unspecified; I10 Essential (primary) hypertension; K76.0 Fatty (change of) liver, not elsewhere classified | CPT/HCPCS: 80053; 80061 ==